=== PATIENT | male | born 1960 | race Caucasian/White ===

== ENCOUNTER 2016-09-20 20:36 | Observation (INO) | payer MEDICARE, OTHER ==
[2016-09-20 21:34] LABS: Hematocrit 47 % (42-52); Mean Corpuscular Volume 88 fL (80-94); Mean Platelet Volume 9 um3 (7.4-10.4); Red Blood Count 5.36 10^6/ul (4.0-5.4); Red Cell Distribution Width 14 % (10.5-15); White Blood Count 17.6 10^3/ul (3.5-10.8)
[2016-09-20 21:42] LABS: Hemoglobin 15.8 g/dl (14.0-18.0)
[2016-09-20 21:43] LABS: Mean Corpuscular HGB Conc 34 g/dl (31-36); Mean Corpuscular Hemoglobin 29 pg (27-31)
[2016-09-20 21:44] LABS: Comments Flag Yes
--- NOTE | 2016-09-20 21:50 | ED ---
Sebas Merrill Adam, scribed for Tavo Bright MD on 09/20/16 at 2058 . Abdominal Pain/Male - HPI Summary HPI Summary: Pt is a 56 year old male presenting with abdominal pain. The pain set on at 18: 00 today and it radiates to the pt's back. He also reports lower chest heaviness , diarrhea, and nausea for the past hour. He has never had these symptoms before. Pt went to the DC today and was told that his triglycerides were high ( around 1999) and that he is to return for a follow-up on 10/09/16. PMHx of DM, HTN, and COPD. Positive tobacco hx. - History of Current Complaint Chief Complaint: EDChestPainROMI Stated Complaint: FEVER/ ABD- CHEST PAIN Time Seen by Provider: 09/20/16 20:51 Hx Obtained From: Patient Onset/Duration: Sudden Onset, Lasting Hours, Still Present Timing: Constant, Lasting Hours Severity Initially: Moderate Severity Currently: Moderate Pain Intensity: 4 Pain Scale Used: 0-10 Numeric Location: Diffuse Radiates: Yes Radiates to: Back Aggravating Factor(s): Nothing Alleviating Factor(s): Nothing Associated Signs And Symptoms: Positive: Chest Pain, Nausea, Diarrhea - Allergies/Home Medications Allergies/Adverse Reactions: Allergies Allergy/AdvReac Type Severity Reaction Status Date / Time Propoxyphene Allergy Unknown Verified 09/20/16 20:43 [From Makayla] Reaction Details Home Medications: Home Medications Cholecalciferol TAB* [Vitamin D TAB*] 1,000 unit PO DAILY 09/21/16 [History Confirmed 09/21/16] PMH/Surg Hx/FS Hx/Imm Hx Endocrine/Hematology History: Reports: Hx Diabetes Denies: Hx Thyroid Disease Cardiovascular History: Reports: Hx Hypertension Denies: Hx Hypercholesterolemia, Hx Pacemaker/ICD, Hx Peripheral Vascular Disease Respiratory History: Reports: Hx Chronic Obstructive Pulmonary Disease (COPD) History: Reports: Hx Renal Disease - STONES Musculoskeletal History: Denies: Hx Arthritis, Hx Rheumatoid Arthritis, Hx Osteoporosis, Hx Scoliosis Sensory History: Denies: Hx Cataracts, Hx Contacts or Glasses, Hx Glaucoma, Hx Hearing Aid Opthamlomology History: Denies: Hx Cataracts, Hx Contacts or Glasses, Hx Glaucoma Neurological History: Denies: Hx Headaches, Hx Seizures, Hx Transient Ischemic Attacks (TIA), Other Neuro Impairments/Disorders Psychiatric History: Denies: Hx Anxiety, Hx Depression, Hx Panic Disorder - Surgical History Surgery Procedure, Year, and Place: LASIK EYE SURGERY 2003 Infectious Disease History: No Infectious Disease History: Denies: Traveled Outside the [place] in Last 30 Days - Family History Known Family History: Positive: Other - Cancer - Social History Occupation: Retired Lives: With Family - Domestic partner female Hx Tobacco Use: Yes Smoking Status (MU): Current Every Day Smoker Review of Systems Positive: Chest Pain Positive: Abdominal Pain, Diarrhea, Nausea All Other Systems Reviewed And Are Negative: Yes Physical Exam Triage Information Reviewed: Yes Vital Signs On Initial Exam: Initial Vitals Temp Pulse Resp BP Pulse Ox 98.3 F 116 16 146/99 93 09/20/16 20:38 09/20/16 20:38 09/20/16 20:38 09/20/16 20:38 09/20/16 20:38 Vital Signs Reviewed: Yes Appearance: Positive: Pain Distress - mod discomfort, Obese Skin: Positive: Warm Head/Face: Positive: Normal Head/Face Inspection Eyes: Positive: AMALIA ENT: Positive: Hearing grossly normal Neck: Positive: Supple Respiratory/Lung Sounds: Positive: Clear to Auscultation, Breath Sounds Present Cardiovascular: Positive: Normal Abdomen Description: Positive: No Organomegaly, Soft, Distended, Other: - mild diffuse upper abd tenderness Bowel Sounds: Positive: Present Musculoskeletal: Positive: Strength/ROM Intact Neurological: Positive: Alert, Oriented to Person Place, Time Psychiatric: Positive: Affect/Mood Appropriate Diagnostics - Vital Signs Vital Signs Temp Pulse Resp BP Pulse Ox 09/20/16 20:38 98.3 F 116 16 146/99 93 - Laboratory Lab Results: Lab Results 09/20/16 Range/Units 21:25 WBC 17.6 H (3.5-10.8) 10^3/ul RBC 5.36 (4.0-5.4) 10^6/ul Hgb 15.8 (14.0-18.0) g/dl Hct 47 (42-52) % MCV 88 (80-94) fL MCH 29 (27-31) pg MCHC 34 (31-36) g/dl RDW 14 (10.5-15) % Plt Count 231 (150-450) 10^3/ul MPV 9 (7.4-10.4) um3 Neut % (Auto) 85.0 H (38-83) % Lymph % (Auto) 7.7 L (25-47) % [place] % (Auto) 6.3 (1-9) % Eos % (Auto) 0.4 (0-6) % Baso % (Auto) 0.6 (0-2) % Absolute Neuts (auto) 15.0 H (1.5-7.7) 10^3/ul Absolute Lymphs (auto) 1.4 (1.0-4.8) 10^3/ul Absolute Monos (auto) 1.1 H (0-0.8) 10^3/ul Absolute Eos (auto) 0.1 (0-0.6) 10^3/ul Absolute Basos (auto) 0.1 (0-0.2) 10^3/ul Absolute Nucleated RBC 0.02 10^3/ul Nucleated RBC % 0.1 Result Diagrams: 09/21/16 04:30 09/20/16 21:56 Lab Statement: Any lab studies that have been ordered have been reviewed, and results considered in the medical decision making process. - Radiology CXR Radiology Interpretation Completed By: Radiologist - IMPRESSION: NO ACTIVE DISEASE. - CT A/P CT Interpretation Completed By: Radiologist - IMPRESSION: ACUTE INTERSTITIAL PANCREATITIS. - EKG 20:46 Cardiac Rate: Tachycardia - 118 BPM EKG Rhythm: Sinus Tachycardia - Additional Comments Diagnostic Additional Comments: Troponin I - 0.00 Abdominal Pain Fem Course/Dx - Diagnoses Provider Diagnoses: Pancreatitis - Provider Notifications Discussed Care Of Patient With: Dr. Mauro at 02:02. Patient will be admitted. Instructed by Provider To: Admit As Inpatient Discharge - Discharge Plan Condition: Guarded Disposition: ADMITTED TO [facility], [place] documentation as recorded by the Sebas alvarez Adam accurately reflects the service I personally performed and the decisions made by me, Tavo Bright MD.
--- NOTE | 2016-09-20 22:00 | RAD ---
INDICATION: Chest pain COMPARISON: Chest x-ray April 27, 2015 TECHNIQUE: PA and lateral dual-energy views were obtained. FINDINGS: Bones/Soft Tissues: There are no acute bony findings. Cardiomediastinal: The cardiomediastinal silhouette is normal. Lungs: There are no infiltrates. Pleura: There are no pleural effusions. Other: None IMPRESSION: NO ACTIVE DISEASE.
[2016-09-20 22:49] LABS: Albumin 4.4 g/dL (3.2-5.2); Calcium 9.6 mg/dL (8.6-10.3); EGFR African American 67.7 (>60); EGFR Non-African American 52.6 (>60); Total Bilirubin 0.8 mg/dL (0.2-1.0); Total Protein 6.4 g/dL (6.4-8.9)
[2016-09-20 23:03] LABS: BUN/Creatinine Ratio 11.4 (8-20)
[2016-09-20] MEDS ORDERED: HYDROmorphone INJ* 1 MG/ML CARPUJECT SYRINGE IV SLOW PU ONE (23:14)
[2016-09-20 23:26] LABS: Urine Bacteria Absent (Absent); Urine Bilirubin Negative (Negative); Urine Glucose 3+(>=500 mg/dL) (Negative); Urine Nitrite Negative (Negative)
[2016-09-20] MEDS ORDERED: Iodixanol* (CONTRAST) 320 MG/ML 100 ML SDV IV ONE (23:35)
[2016-09-21] MEDS ORDERED: LORazepam INJ* 2 MG/ML 1 ML VIAL IV PRN (02:07)
[2016-09-21] MEDS ORDERED: Ondansetron INJ* 2 MG/ML VIAL IV PRN (02:07)
[2016-09-21] MEDS ORDERED: NS 0.9% 1000 ML* 1,000 ML IV SCH (02:15)
--- NOTE | 2016-09-21 02:18 | HP ---
H&P (Free Text) History and Physical: PCP: Khushbu Washington MD Date/Time of Evaluation: 09/21/2016 0210 CC: abdominal pain HPI: Mr Ozuna is a 56YO obese male HX hypertriglyceridemia >2k reporting onset of dull/cramping abdominal pain radiating to his back around 1800 associated with some lower chest heaviness and loose stool, but no SOB, palpitations, F/C, or other issues. He denies black/bloody stool. He has no history of similar. Evaluation is notable for a lipase of >900 & CT abd/pel W showing pancreatitis. PMedHx DM2 COPD HTN GERD hypertriglyceridemia PTSD depression Allergies Propoxyphene [From Darvocet-N] Allergy (Verified 09/20/16 20:43) Unknown Reaction Details Ambulatory Orders Nursing to reconcile. PSurgHx denies SocHx: former smoker, no alcohol or recreational drugs; retired; full code status FamHx: Father passed of leukemia in his late 70s. Mother passed of lung CA in her late 70s. ROS: as above, otherwise reviewed and all were negative Constitutional: NAD, normally developed, obese white male vitals: Vital Signs Temp 36.8 C 09/20/16 20:38 Pulse 111 09/20/16 23:31 Resp 20 09/20/16 23:26 BP 147/90 09/20/16 23:31 Pulse Ox 96 09/20/16 23:31 Intake & Output 09/20/16 09/20/16 09/21/16 11:59 23:59 11:59 Weight 111.584 kg HEENM: atraumatic; sclera/conjunctiva: non-icteric/clear; hearing: clinically intact; oropharynx: clear, mucosa moist Neck: soft tissue: non-tender; thyroid: normal Pulmonary: clear to auscultation bilaterally, good aeration, no accessory muscle use CV: RR/RR, normal S1S2, no carotid bruit, no jugular venous distention, 2+ B DP/ PT, no edema Abdominal: soft, non-distended, diffusely moderately tender worst in the epigastrum, no rebound/guarding/rigidity, hypoactive bowel sounds, no hepatosplenomegaly or masses, no costovertebral angle tenderness Musculoskeletal: general: grossly intact; gait: stable Integumental: normal appearance and texture of exposed skin Psychiatric orientation: AA&O to PPS affect: calm mood: cooperative eye contact: good content: reliable responses: timely insight: good Testing: Lab Results 09/20/16 09/20/16 09/20/16 Range/Units 21:25 21:25 21:56 WBC 17.6 H (3.5-10.8) 10^3/ul RBC 5.36 (4.0-5.4) 10^6/ul Hgb 15.8 (14.0-18.0) g/dl Hct 47 (42-52) % MCV 88 (80-94) fL MCH 29 (27-31) pg MCHC 34 (31-36) g/dl RDW 14 (10.5-15) % Plt Count 231 (150-450) 10^3/ul MPV 9 (7.4-10.4) um3 Neut % (Auto) 85.0 H (38-83) % Lymph % (Auto) 7.7 L (25-47) % [place] % (Auto) 6.3 (1-9) % Eos % (Auto) 0.4 (0-6) % Baso % (Auto) 0.6 (0-2) % Absolute Neuts (auto) 15.0 H (1.5-7.7) 10^3/ul Absolute Lymphs (auto) 1.4 (1.0-4.8) 10^3/ul Absolute Monos (auto) 1.1 H (0-0.8) 10^3/ul Absolute Eos (auto) 0.1 (0-0.6) 10^3/ul Absolute Basos (auto) 0.1 (0-0.2) 10^3/ul Absolute Nucleated RBC 0.02 10^3/ul Nucleated RBC % 0.1 Sodium 125 L (133-145) mmol/L Potassium 5.0 (3.5-5.0) mmol/L Chloride 93 L (101-111) mmol/L Carbon Dioxide 24 (22-32) mmol/L Anion Gap 8 (2-11) mmol/L BUN 16 (6-24) mg/dL Creatinine 1.40 H (0.67-1.17) mg/dL Est GFR ( Amer) 67.7 (>60) Est GFR (Non-Af Amer) 52.6 (>60) BUN/Creatinine Ratio 11.4 (8-20) Glucose 288 H (70-100) mg/dL Calcium 9.6 (8.6-10.3) mg/dL Total Bilirubin 0.80 (0.2-1.0) mg/dL AST 56 H (13-39) U/L ALT 43 (7-52) U/L Alkaline Phosphatase 48 (34-104) U/L Troponin I 0.00 (<0.04) ng/mL Total Protein 6.4 (6.4-8.9) g/dL Albumin 4.4 (3.2-5.2) g/dL Globulin 2.0 (2-4) g/dL Albumin/Globulin Ratio 2.2 (1-3) Lipase 938 H (11.0-82.0) U/L Urine Color Urine Appearance Urine pH (5-9) Ur Specific [place] (1.010-1.030) Urine Protein (Negative) Urine Ketones (Negative) Urine Blood (Negative) Urine Nitrate (Negative) Urine Bilirubin (Negative) Urine Urobilinogen (Negative) Ur Leukocyte Esterase (Negative) Urine WBC (Auto) (Absent) Urine RBC (Auto) (Absent) Ur Squamous Epith Cells (Absent) Urine Bacteria (Absent) Urine Glucose (Negative) 09/20/16 Range/Units 23:10 WBC (3.5-10.8) 10^3/ul RBC (4.0-5.4) 10^6/ul Hgb (14.0-18.0) g/dl Hct (42-52) % MCV (80-94) fL MCH (27-31) pg MCHC (31-36) g/dl RDW (10.5-15) % Plt Count (150-450) 10^3/ul MPV (7.4-10.4) um3 Neut % (Auto) (38-83) % Lymph % (Auto) (25-47) % [place] % (Auto) (1-9) % Eos % (Auto) (0-6) % Baso % (Auto) (0-2) % Absolute Neuts (auto) (1.5-7.7) 10^3/ul Absolute Lymphs (auto) (1.0-4.8) 10^3/ul Absolute Monos (auto) (0-0.8) 10^3/ul Absolute Eos (auto) (0-0.6) 10^3/ul Absolute Basos (auto) (0-0.2) 10^3/ul Absolute Nucleated RBC 10^3/ul Nucleated RBC % Sodium (133-145) mmol/L Potassium (3.5-5.0) mmol/L Chloride (101-111) mmol/L Carbon Dioxide (22-32) mmol/L Anion Gap (2-11) mmol/L BUN (6-24) mg/dL Creatinine (0.67-1.17) mg/dL Est GFR ( Amer) (>60) Est GFR (Non-Af Amer) (>60) BUN/Creatinine Ratio (8-20) Glucose (70-100) mg/dL Calcium (8.6-10.3) mg/dL Total Bilirubin (0.2-1.0) mg/dL AST (13-39) U/L ALT (7-52) U/L Alkaline Phosphatase (34-104) U/L Troponin I (<0.04) ng/mL Total Protein (6.4-8.9) g/dL Albumin (3.2-5.2) g/dL Globulin (2-4) g/dL Albumin/Globulin Ratio (1-3) Lipase (11.0-82.0) U/L Urine Color Yellow Urine Appearance Clear Urine pH 6.0 (5-9) Ur Specific [place] 1.033 H (1.010-1.030) Urine Protein 2+(100 mg/dl) H (Negative) Urine Ketones 2+ H (Negative) Urine Blood Negative (Negative) Urine Nitrate Negative (Negative) Urine Bilirubin Negative (Negative) Urine Urobilinogen Negative (Negative) Ur Leukocyte Esterase Negative (Negative) Urine WBC (Auto) Absent (Absent) Urine RBC (Auto) Trace(0-2/hpf) (Absent) Ur Squamous Epith Cells Present H (Absent) Urine Bacteria Absent (Absent) Urine Glucose 3+(>=500 mg/dl) H (Negative) ECG, personally reviewed: sinus tachycardia rate 118, no ischemia CXR, personally reviewed: IMPRESSION: NO ACTIVE DISEASE. CT abd/pel W, personally reviewed: Impression: Acute interstitial pancreatitis Impression: 56M presenting with acute pancreatitis DIAGNOSIS & PLAN Primary acute pancreatitis : IVFs : monitor labs : NPO : pain control : supplemental oxygen : supportive care : RUQ US to evaluate for gall stones Secondary DM2 : basal/correctional protocol : check A1c HTN : hold anti-hypertensives for now GERD : IV pantoprazole ADD : hold methylphenidate for now depression : hold aripiprazole & mirtazapine for now Admission Rational: inpatient for management of acute pancreatitis inappropriate for outpatient setting DVTp: SCDs & heparin SQ Code Status: full
[2016-09-21] MEDS: HYDROmorphone INJ* 1 MG/ML CARPUJECT SYRINGE IV PRN ×3 (03:38→12:41)
[2016-09-21] MEDS: Pantoprazole IV* 40 MG IV SCH ×2 (03:41→10:09)
[2016-09-21] MEDS ORDERED: Insulin LISPRO* 1 UNITS UNIT SUBCUT SCH (04:00)
[2016-09-21 04:44] LABS: Hematocrit 47 % (42-52); Hemoglobin 16.5 g/dl (14.0-18.0); Mean Corpuscular HGB Conc 35 g/dl (31-36); Mean Corpuscular Hemoglobin 31 pg (27-31); Mean Corpuscular Volume 88 fL (80-94); Mean Platelet Volume 9 um3 (7.4-10.4); Red Cell Distribution Width 14 % (10.5-15); White Blood Count 15.9 10^3/ul (3.5-10.8)
[2016-09-21 05:11] LABS: Anion Gap 6 mmol/L (2-11); Blood Urea Nitrogen 12 mg/dL (6-24); CO2 Carbon Dioxide 24 mmol/L (22-32); Calcium 9.2 mg/dL (8.6-10.3); Chloride 91 mmol/L (101-111); EGFR African American 109.8 (>60); EGFR Non-African American 85.4 (>60); Glucose 291 mg/dL (70-100); Lipase 463 U/L (11.0-82.0); Sodium 121 mmol/L (133-145)
[2016-09-21] MEDS: Insulin LISPRO* 1 UNITS UNIT SUBCUT SCH ×5 (05:22→21:55)
[2016-09-21] MEDS: NS 0.9% 1000 ML* 1,000 ML IV SCH ×3 (07:40→23:01)
--- NOTE | 2016-09-21 08:16 | RAD ---
INDICATION: Fever. Abdominal pain. Elevated lipase. LEFT side pain. History of tobacco use. History of urolithiasis. Diabetic. COMPARISON: July 02, 2015 abdominal ultrasound and April 30, [address] TECHNIQUE: Multidetector CT images were obtained from the lung bases to the ischial tuberosities with 140 mL Visipaque 320 IV and oral contrast. Multiplanar reformation. REPORT: Unremarkable visualized inferior thorax. 23 cm cephalocaudal liver is decreased in density consistent with hepatic steatosis. Negative for focal hepatic lesions or biliary dilatation. No CT abnormality of the gallbladder. Normal morphology pancreas with normal enhancement pattern is without evidence for a focal lesion or duct dilatation. There is moderate peripancreatic inflammatory change primarily extending anteriorly at the lesser sac with trace nonloculated fluid. Negative for CT abnormality of the upper GI, small bowel, or medial cephalad extending appendix. Mild diverticulosis of the colon without findings of diverticulitis. Aside from trace fluid in the lesser sac there is no free intraperitoneal fluid. Negative for free air. Bilateral fat-containing direct inguinal hernias without inflammatory change. 1.6 x 1.2 cm enhancing RIGHT adrenal nodule is new compared with the 2015 exam. Unremarkable LEFT adrenal gland. Low burden of small renal cortical cysts. Negative for suspicious renal lesions. Negative for hydronephrosis. Unremarkable ureters and partially distended urinary bladder. Unremarkable visualized male urogenital structures. 1.1 cm in short axis hepatic artery lymph node without change. Upper normal size portal caval node without change. Mild atherosclerotic calcification of normal diameter abdominal aorta and iliac arteries. The portal vein, superior mesenteric vein, and splenic vein are patent. Bilateral L5 spondylolysis without significant associated anterolisthesis. No suspicious focal osseous lesions evident. IMPRESSION: 1. The constellation of findings is consistent with acute pancreatitis. No nonenhancing regions of the pancreas to indicate pancreatic necrosis. Negative for pancreatic duct or biliary dilatation. Negative for loculated peripancreatic fluid collections. Consider RIGHT upper quadrant ultrasound to assess for cholelithiasis. July 02, 2015 RIGHT upper quadrant ultrasound was negative for cholelithiasis. 2. Hepatomegaly and hepatic steatosis. 3. Negative for obstructive uropathy. 4. 1.6 cm RIGHT adrenal nodule is new compared with the 2015 CT. This lesion is nonspecific based on the appearance on the current contrast-enhanced CT. Consider follow-up noncontrast CT or adrenal mass protocol MRI for further characterization following treatment for the acute clinical issue of pancreatitis..
--- NOTE | 2016-09-21 09:07 | RAD ---
HISTORY: Acute pancreatitis COMPARISONS: None TECHNIQUE: Multiple transverse and longitudinal ultrasound images were obtained of the right upper quadrant of the abdomen using grayscale and color Doppler imaging. FINDINGS: LIVER: There is wedging is enlarged measuring 21 cm. The liver is diffusely echogenic and coarse in echotexture with decreased acoustic through transmission. There is normal hepatopedal flow of the portal vein on Doppler imaging. BILIARY TREE: There is no intrahepatic or extrahepatic biliary dilatation. The common duct measures 0.3 cm. GALLBLADDER: The gallbladder is well-visualized. There is no cholelithiasis, gallbladder wall thickening, pericholecystic fluid, or sonographic Bernardo sign. PANCREAS: The head of the pancreas is heterogeneous. The tail of the pancreas is not well visualized secondary to overlying bowel gas. RIGHT KIDNEY: The right kidney is normal in shape, size, contour, and echogenicity. There is no hydronephrosis or nephrolithiasis. The right kidney measures 12.2 x 6.5 x 7 cm. AORTA AND IVC: The aorta and IVC are unremarkable. FLUID: There are no pleural effusions. There is no free fluid within the hepatorenal recess. OTHER FINDINGS: None. IMPRESSION: HEPATOMEGALY WITH FATTY INFILTRATION OF THE LIVER
--- NOTE | 2016-09-21 14:28 | PN ---
Subjective Date of Service: 09/21/16 Interval History: Patient seen and examined at bedside. Patient states that his abdominal pain is improving. Denies fever, chills, shortness of breath, chest discomfort, N/V/D. Family History: Unchanged from Admission Social History: Unchanged from Admission Past Medical History: Unchanged from Admission Objective Active Medications: Hydromorphone HCl (Dilaudid Iv*) 1 mg IV Q2H PRN Reason: PAIN Sodium Chloride (Ns 0.9% 1000 Ml*) 1,000 mls @ 125 mls/hr IV PER RATE [facility] Insulin Glargine (Lantus(*)) 27 units SUBCUT 2100 YVETTE Insulin Human Lispro (Humalog*) 0 units SUBCUT Q4H [facility] Reason: Protocol Lorazepam (Ativan Inj*) 1 mg IV BEDTIME PRN Reason: SLEEP Ondansetron HCl (Zofran Inj*) 4 mg IV Q6H PRN Reason: NAUSEA Pantoprazole Sodium (Protonix Iv*) 40 mg IV DAILY [facility] Vital Signs 09/21/16 09/21/16 09/21/16 02:29 03:33 03:38 Temperature 99.2 F 98.2 F Pulse Rate 109 Respiratory 20 20 Rate Blood Pressure 154/87 (mmHg) O2 Sat by Pulse 92 Oximetry 09/21/16 09/21/16 09/21/16 03:51 04:38 07:19 Temperature 98.4 F Pulse Rate 106 Respiratory 20 18 16 Rate Blood Pressure 125/67 (mmHg) O2 Sat by Pulse 90 Oximetry Oxygen Devices in Use Now: None Appearance: NAD, laying in bed Eyes: No Scleral Icterus, PERRLA Ears/Nose/Mouth/Throat: NL Teeth, Lips, Gums, Mucous Membranes Moist Neck: NL Appearance and Movements; NL JVP, Trachea Midline Respiratory: Symmetrical Chest Expansion and Respiratory Effort, Clear to Auscultation Cardiovascular: NL Sounds; No Murmurs; No JVD, RRR Abdominal: - - Abdomen soft, large, non tender. Bowel sounds present Extremities: No Edema Skin: No Rash or Ulcers Neurological: Alert and Oriented x 3, NL Muscle Strength and Tone Lines/Tubes/Other Access: Clean, Dry and Intact Peripheral IV - site benign Nutrition: Taking PO's Result Diagrams: 09/21/16 04:30 09/21/16 06:01 Additional Lab and Data: Assess/Plan/Problems-Billing Assessment: - Patient Problems (1) Pancreatitis Code(s): K85.90 - ACUTE PANCREATITIS WITHOUT NECROSIS OR INFECTION, UNSP SNOMED Code(s): 24764751 Comment: - ABD pain improving - GB US - no gallstones - Continue IVF and pain medication - Will check fating lipids in the morning (2) Hyponatremia Code(s): E87.1 - HYPO-OSMOLALITY AND HYPONATREMIA SNOMED Code(s): 42290341 Comment: - Pt was declining IVFs - Will continue NS overnight and recheck labs in the morning (3) Diabetes Code(s): E11.9 - TYPE 2 DIABETES MELLITUS WITHOUT COMPLICATIONS SNOMED Code(s) : 96317993 Comment: - Glucose 170-250's - Continue Lantus and Lispro SS - Continue to hold metformin (4) HTN (hypertension) Code(s): I10 - ESSENTIAL (PRIMARY) HYPERTENSION SNOMED Code(s): 22152469 Comment: - SBP 100-150's - Continue to hold antihypertensive medications (5) GERD (gastroesophageal reflux disease) Code(s): K21.9 - GASTRO-ESOPHAGEAL REFLUX DISEASE WITHOUT ESOPHAGITIS SNOMED Code(s): 059493492 Comment: - Continue protonix (6) ADD (attention deficit disorder) Code(s): F98.8 - OTH BEHAV/EMOTN DISORD W ONSET USLY OCCUR IN CHLDHD AND ADOL SNOMED Code(s): 679440380 Comment: - Resume methylphenidate when taking PO (7) Depression Code(s): F32.9 - MAJOR DEPRESSIVE DISORDER, SINGLE EPISODE, UNSPECIFIED SNOMED Code(s): 93319079 Comment: - Resume aripiprazole and mirtazapine when taking PO (8) DVT prophylaxis Current Visit: Yes Status: Acute Code(s): KLV9638 - SNOMED Code(s): 018213662 Comment: - Continue SCDs and encourage ambulation (9) Full code status Code(s): Z78.9 - OTHER SPECIFIED HEALTH STATUS SNOMED Code(s): 449520011 Status and Disposition: Inpatient. Discharge to home when medically stable.
[2016-09-21] MEDS ORDERED: Insulin GLARGINE(*) 1 UNITS UNIT SUBCUT SCH (21:00)
[2016-09-22] MEDS: Insulin LISPRO* 1 UNITS UNIT SUBCUT SCH ×4 (00:08→12:46)
[2016-09-22] MEDS ORDERED: Zolpidem TAB* 10 MG PO SCH (01:00)
[2016-09-22 06:25] LABS: Hematocrit 42 % (42-52); Hemoglobin 13.9 g/dl (14.0-18.0); Mean Corpuscular HGB Conc 33 g/dl (31-36); Mean Corpuscular Hemoglobin 30 pg (27-31); Mean Corpuscular Volume 89 fL (80-94); Mean Platelet Volume 9 um3 (7.4-10.4); Red Cell Distribution Width 14 % (10.5-15); White Blood Count 11.8 10^3/ul (3.5-10.8)
[2016-09-22 07:01] LABS: BUN/Creatinine Ratio 14.1 (8-20); Calcium 8.7 mg/dL (8.6-10.3); EGFR African American 132.9 (>60); EGFR Non-African American 103.3 (>60); HDL Cholesterol 15.6 mg/dL; Potassium 3.5 mmol/L (3.5-5.0)
[2016-09-22 07:49] VITALS: BP 116/61
[2016-09-22] MEDS: Pantoprazole IV* 40 MG IV SCH (08:54)
--- NOTE | 2016-09-22 09:58 | PN ---
Subjective Date of Service: 09/22/16 Interval History: Patient seen and examined at bedside. Denies fever, chills, chest discomfort, shortness of breath, abdominal pain, N/V/D. Pt reports he is tolerating clear liquids well. Per Pt's he had labs drawn at the [facility] on September 13 showing Triglycerides greater than 2,400, AST 83 and HgA1C 10.6 Family History: Unchanged from Admission Social History: Unchanged from Admission Past Medical History: Unchanged from Admission Objective Active Medications: Hydromorphone HCl (Dilaudid Iv*) 1 mg IV Q2H PRN Reason: PAIN Sodium Chloride (Ns 0.9% 1000 Ml*) 1,000 mls @ 125 mls/hr IV PER RATE YVETTE Insulin Glargine (Lantus(*)) 27 units SUBCUT 2100 YVETTE Stop: 09/22/16 20:00 Insulin Human Lispro (Humalog*) 0 units SUBCUT Q4H YVETTE Reason: Protocol Lorazepam (Ativan Inj*) 1 mg IV BEDTIME PRN Reason: SLEEP Ondansetron HCl (Zofran Inj*) 4 mg IV Q6H PRN Reason: NAUSEA Pantoprazole Sodium (Protonix Iv*) 40 mg IV DAILY YVETTE Zolpidem Tartrate (Ambien Tab*) 10 mg PO 2100 YVETTE Reason: Protocol Vital Signs 09/21/16 09/21/16 09/21/16 12:41 13:41 15:31 Temperature 98.4 F Pulse Rate 100 Respiratory 18 18 20 Rate Blood Pressure 105/68 (mmHg) O2 Sat by Pulse 91 Oximetry 09/21/16 09/21/16 09/21/16 16:59 19:30 20:00 Temperature 98.3 F Pulse Rate 105 Respiratory 20 20 Rate Blood Pressure 144/79 (mmHg) O2 Sat by Pulse 90 94 Oximetry 09/21/16 09/22/16 09/22/16 23:06 05:19 07:39 Temperature 98.6 F 98.6 F Pulse Rate 106 102 Respiratory 16 22 Rate Blood Pressure 132/70 116/61 (mmHg) O2 Sat by Pulse 93 92 93 Oximetry Oxygen Devices in Use Now: None Appearance: NAD, sitting up on the side of the bed Eyes: No Scleral Icterus, PERRLA Ears/Nose/Mouth/Throat: NL Teeth, Lips, Gums, Mucous Membranes Moist Neck: NL Appearance and Movements; NL JVP, Trachea Midline Respiratory: Symmetrical Chest Expansion and Respiratory Effort, Clear to Auscultation Cardiovascular: NL Sounds; No Murmurs; No JVD, RRR Abdominal: NL Sounds; No Tenderness; No Distention Extremities: No Edema Skin: No Rash or Ulcers Neurological: Alert and Oriented x 3, NL Muscle Strength and Tone Lines/Tubes/Other Access: Clean, Dry and Intact Peripheral IV - site benign Nutrition: Taking PO's Result Diagrams: 09/22/16 05:51 09/22/16 05:51 Additional Lab and Data: Assess/Plan/Problems-Billing Assessment: - Patient Problems (1) Pancreatitis Code(s): K85.90 - ACUTE PANCREATITIS WITHOUT NECROSIS OR INFECTION, UNSP SNOMED Code(s): 10530644 Comment: - ABD pain resolved - Pt reports Triglycerides at the [facility] last week were > 2,400 but are 300 this AM - US - no gallstones - Continue IVF and pain medication - Will advance diet - Suspect this is related to elevated lipids (2) Hyponatremia Code(s): E87.1 - HYPO-OSMOLALITY AND HYPONATREMIA SNOMED Code(s): 11828534 Comment: - Improved with NS (3) Diabetes Code(s): E11.9 - TYPE 2 DIABETES MELLITUS WITHOUT COMPLICATIONS SNOMED Code(s) : 77285965 Comment: - Glucose 160-200's - Continue Lantus and Lispro SS - Continue to hold metformin, will resume at discharge - Last known HgA1C 10.6 earlier this month - Would benefit from a consult at [facility] (4) HTN (hypertension) Code(s): I10 - ESSENTIAL (PRIMARY) HYPERTENSION SNOMED Code(s): 61725584 Comment: - SBP 100-140's - Continue to hold antihypertensive medications (5) GERD (gastroesophageal reflux disease) Code(s): K21.9 - GASTRO-ESOPHAGEAL REFLUX DISEASE WITHOUT ESOPHAGITIS SNOMED Code(s): 625464269 Comment: - Continue protonix (6) ADD (attention deficit disorder) Code(s): F98.8 - OTH BEHAV/EMOTN DISORD W ONSET USLY OCCUR IN CHLDHD AND ADOL SNOMED Code(s): 039234309 Comment: - Resume methylphenidate (7) Depression Code(s): F32.9 - MAJOR DEPRESSIVE DISORDER, SINGLE EPISODE, UNSPECIFIED SNOMED Code(s): 75691365 Comment: - Resume aripiprazole and mirtazapine (8) DVT prophylaxis Current Visit: Yes Status: Acute Code(s): RGO6379 - SNOMED Code(s): 574320388 Comment: - Continue SCDs and encourage ambulation (9) Full code status Code(s): Z78.9 - OTHER SPECIFIED HEALTH STATUS SNOMED Code(s): 296823370 Status and Disposition: Inpatient. Discharge to home when medically stable, possibly later today.
[2016-09-22 10:25] LABS: Albumin 3.2 g/dL (3.2-5.2); Globulin 3.1 g/dL (2-4); Total Bilirubin 1.1 mg/dL (0.2-1.0); Total Protein 6.3 g/dL (6.4-8.9)
--- NOTE | 2016-09-23 14:19 | DS ---
DISCHARGE SUMMARY: ADDENDUM: It was found on the patient's CT scan, a 1.6 cm right adrenal nodule that was new when compared to a CT from 2015. It is recommended that a followup noncontrast CT or adrenal mass protocol MRI be completed after the patient's acute clinical issue of pancreatitis has been resolved. SACHA OLVERA, VALENCIA [id number]/[facility] #: [id number] MTDAlfredo
--- NOTE | 2016-09-23 17:43 | DS ---
ADDENDUM NOW INCLUDED ON THIS REPORT DISCHARGE SUMMARY: DATE OF ADMISSION: 09/21/16 DATE OF DISCHARGE: 09/22/16 ATTENDING PHYSICIAN: Dr. Tegan Griffin* (dictated by Viola Baker NP). PRIMARY CARE PROVIDER: Dr. Rufina Epperson. PRIMARY DIAGNOSES: 1. Acute pancreatitis. 2. Diabetes mellitus. SECONDARY DIAGNOSES: 1. Chronic obstructive pulmonary disease. 2. Hypertension. 3. Gastroesophageal reflux disease. 4. Posttraumatic stress disorder. 5. Depression. 6. Hypertriglyceridemia. 7. Fatty liver. STUDIES WHILE IN THE HOSPITAL: 1. Chest x-ray on 09/20/16. Radiologist's Impression: No active disease. 2. Abdomen and pelvis CT scan on 09/20/16. Radiologist's Impression: Reconciliation of findings is consistent with acute pancreatitis. No nonenhancing regions of the pancreas to indicate pancreatic necrosis. Negative for pancreatic duct or biliary dilation. Negative for loculated peripancreatic fluid collections. Consider right upper quadrant ultrasound to assess for cholelithiasis. July 02, 2015 right upper quadrant ultrasound was negative for cholelithiasis. Hepatomegaly and hepatic steatosis appeared negative for obstructive uropathy. A 1.6 cm right adrenal nodule is compared with the 2015 CT. This lesion is nonspecific based on the appearance of the current contrast enhanced CT. Consider followup noncontrast CT or adrenal mass protocol MRI for further characterization following the acute clinical issue of pancreatitis. 3. Abdominal ultrasound on 09/21/16. Radiologist's Impression: Hepatomegaly with fatty infiltration of the liver. DISCHARGE MEDICATIONS: [place] Medications: 1. Tricor 48 mg oral daily. Continued home medications: 1. Omeprazole 20 mg oral daily. 2. Mirtazapine 45 mg oral daily. 3. Concerta 54 mg oral daily. 4. Abilify 20 mg oral daily. 5. Ambien CR 12.5 mg oral daily. 6. Metformin 1000 mg oral twice daily. 7. Sildenafil 100 mg oral daily as needed for erectile dysfunction. 8. Lisinopril/hydrochlorothiazide 10.5, two tablets oral daily. HISTORY OF PRESENT ILLNESS/HOSPITAL COURSE: Mr. Ozuna is a 56-year-old obese male with past medical history significant for hypertriglyceridemia, diabetes mellitus, and hypertension, who presented to the emergency room with sudden onset of a dull cramping abdominal pain radiating to his back, with associated lower chest heaviness and loose stools. The patient denied any shortness of breath, palpitations, fevers, chills or other issues. Based on the patient's symptoms, the patient presented to the emergency room for further evaluation of his symptoms. While in the emergency room, the patient had labs that were significant for lipase greater than 900. He had a CT of his abdomen and pelvis consistent with acute pancreatitis. The patient's reported that he had recently had hypertriglyceridemia with triglycerides greater than 2000 at the beginning of September. The patient's also reported that his last hemoglobin A1c at the same time was 10.6. They report that in the past he has been worked up for abnormal liver function tests, feeling that he possibly had cirrhosis, but he was found to have a fatty liver. Hospitalists were asked to evaluate the patient for admission. While in the hospital, the patient was placed on bowel rest, received IV hydration. His abdominal pain gradually resolved. He had fasting lipids checked on the morning of September 22. He was found to have triglycerides of 300. His lipase was trending down too and was 240. The patient was initially hyponatremic and his sodium trended up to 131. The patient's glucoses had run in the 160s to 250s during his stay. The patient was noted to have a slightly elevated total bilirubin of 1.10. The patient was advanced on his diet, was able to tolerate a low-fat diet. He had a nutritional consult to discuss proper low-fat diet. The patient has remained afebrile during his stay. He has been noted to be slightly tachycardic which has improved during his stay. Initially, his heart rate was in the one-teens and it improved down to low 100s during his stay. The patient initially presented with an acute kidney injury with an elevated creatinine and that has resolved after IV hydration during his stay. Mr. Ozuna is stable for discharge to home today. Vital signs are as follows : Temperature 98.6, heart rate 102, respiratory rate 20, O2 sat 93% on room air , blood pressure 116/61. DISCHARGE PLAN: Mr. Ozuna will be discharged to home today. Activity as tolerated. He has been asked to eat a low-fat, consistent carbohydrate diet. Again, he has received education on a low-fat diet from Nutrition. The patient is interested in further diabetes education in addition to assistance with managing his diabetes and high blood pressure and other medical condition. The patient received a referral to [facility] and they will call him to set up an appointment. Additionally, they can assist the patient with ways of stopping to smoke. The patient has an appointment with his primary care provider, Dr. Epperson on September 27, at 1 p.m. The patient has been started on low-dose Tri-Cor to assist with his high triglycerides. It is suspected that his pancreatitis is as a result of elevated lipids. The patient has been asked to return to the emergency room for shortness of breath or chest pain. This is a summarized report of a complex medical history and hospital stay. For further details please see the entire medical record. TIME SPENT: Time for this discharge was 50 minutes; 25 minutes was spent face- to- face with the patient and discussing discharge plans and instructions. CONDITION ON DISCHARGE: Stable. Reviewed by LUZ MARINA LICONA 09/27/16 1406 ADDENDUM: It was found on the patient's CT scan, a 1.6 cm right adrenal nodule that was new when compared to a CT from 2015. It is recommended that a followup noncontrast CT or adrenal mass protocol MRI be completed after the patient's acute clinical issue of pancreatitis has been resolved. Reviewed by LUZ MARINA LICONA 09/27/16 1406 CC: PAO Correa; Dr. Rufina Epperson.* [id number]/[facility] #: [id number]/[facility] #: [id number] SUM[place]
== END 2016-09-22 15:30 | disposition home or self-care (01) ==
LOC: ED 20:36 → INTOOBSV 09-21 02:17 → MED 09-21 02:17
PROVIDERS: ADMIT Hospitalist; ATTEND Internal Medicine
DX: K85.90 Acute pancreatitis without necrosis or infection, unspecified (principal); E11.9 Type 2 diabetes mellitus without complications; Z79.84 Long term (current) use of oral hypoglycemic drugs; J44.9 Chronic obstructive pulmonary disease, unspecified; I10 Essential (primary) hypertension; E87.1 Hypo-osmolality and hyponatremia; K21.9 Gastro-esophageal reflux disease without esophagitis; F43.10 Post-traumatic stress disorder, unspecified; F32.9 Major depressive disorder, single episode, unspecified; E78.1 Pure hyperglyceridemia; R16.0 Hepatomegaly, not elsewhere classified; K76.0 Fatty (change of) liver, not elsewhere classified; I44.4 Left anterior fascicular block; R00.0 Tachycardia, unspecified; Z79.899 Other long term (current) drug therapy; F98.8 Other specified behavioral and emotional disorders with onset usually occurring in childhood and adolescence
CPT/HCPCS: 36415; 71020; 74177; 76705; 80048; 80053; 80061; 81003; 81015; 83690; 84484; 85025; 93005; 94760; 96374; 96375; 96376; 99284; 99406; A9270-GY; G0378; J1170; Q9967

== ENCOUNTER 2017-06-18 14:05 | Emergency (ER) | payer MEDICARE, OTHER ==
[2017-06-18 15:17] LABS: Hematocrit 47 % (42-52); Hemoglobin 19.2 g/dl (14.0-18.0); Mean Corpuscular HGB Conc 41 g/dl (31-36); Mean Corpuscular Hemoglobin 36 pg (27-31); Mean Corpuscular Volume 89 fL (80-94); Red Blood Count 5.33 10^6/ul (4.0-5.4); Red Cell Distribution Width 14 % (10.5-15); White Blood Count 11.6 10^3/ul (3.5-10.8)
[2017-06-18 15:22] LABS: Comments Flag Yes
[2017-06-18 15:23] LABS: Add Diff/Slide Review? Slide Review Added
[2017-06-18 15:51] LABS: Mean Platelet Volume 9 um3 (7.4-10.4)
[2017-06-18] MEDS ORDERED: Acetaminophen TAB* 325 MG PO ONE (16:35)
[2017-06-18] MEDS ORDERED: NS 0.9% 1000 ML* 2,000 ML IV ONE (16:37)
--- NOTE | 2017-06-18 17:13 | RAD ---
INDICATION: Cough COMPARISON: 2016 TECHNIQUE: An AP portable view obtained at 1643 hours is submitted. FINDINGS: Bones/Soft Tissues: There are no acute bony findings. Cardiomediastinal: The cardiomediastinal silhouette is normal. Lungs: There are no infiltrates. Pleura: There are no pleural effusions. Other: None IMPRESSION: NO ACTIVE DISEASE.
[2017-06-18 19:02] LABS: ALT 59 U/L (7-52); Albumin 4.6 g/dL (3.2-5.2); Alkaline Phosphatase 60 U/L (34-104); C Reactive Protein 31.55 mg/L (< 5.00); Calcium 9.4 mg/dL (8.6-10.3); EGFR African American 49.4 (>60); EGFR Non-African American 38.4 (>60); Globulin 2.7 g/dL (2-4); Glucose 339 mg/dL (70-100); Total Protein 7.3 g/dL (6.4-8.9)
[2017-06-18] MEDS ORDERED: Insulin REGULAR(*) 1 UNITS UNIT IV PUSH ONE (19:09)
[2017-06-18 19:19] LABS: Urine Bacteria Absent (Absent); Urine Bilirubin Negative (Negative); Urine Glucose 3+(>=500 mg/dL) (Negative); Urine Nitrite Negative (Negative)
[2017-06-18 20:56] VITALS: BP 117/88
--- NOTE | 2017-06-23 21:08 | ED ---
Cara Merrill Thomas, scribed for Deyvi Pond MD on 06/18/17 at 1702 . Complex/Multi-Sys Presentation - HPI Summary HPI Summary: The patient is a 56 y/o male referred to the ED from his PMD after his blood glucose was 400 and his A1c was 10. The patient has been diagnosed with thrush and he has been on Diflucan for the last 6 days. Patient additionally complains of cough and sore throat. He has been having a hoarse voice for the last three weeks. He reports feeling ill for the last two months. Patient denies SOB, fever , and pain. He takes metformin and glipizide. Rapid Strep performed earlier today at the patients PMDs office was negative. - History Of Current Complaint Chief Complaint: EDGeneral Time Seen by Provider: 06/18/17 16:14 Hx Obtained From: Patient Onset/Duration: Still Present Timing: Constant Severity Initially: Moderate Location: Negative Aggravating Factor(s): None Alleviating Factor(s): None Associated Signs And Symptoms: Positive: Other - Cough, sore throat, generalized illness; NEGATIVE: SOB, fever, pain - Allergies/Home Medications Allergies/Adverse Reactions: Allergies Allergy/AdvReac Type Severity Reaction Status Date / Time Propoxyphene Allergy Unknown Verified 05/21/17 20:27 [From Makayla] Reaction Details PMH/Surg Hx/FS Hx/Imm Hx Previously Healthy: No Endocrine/Hematology History: Reports: Hx Diabetes Denies: Hx Thyroid Disease Cardiovascular History: Reports: Hx Hypercholesterolemia, Hx Hypertension Denies: Hx Pacemaker/ICD, Hx Peripheral Vascular Disease Respiratory History: Reports: Hx Chronic Obstructive Pulmonary Disease (COPD), Hx Sleep Apnea Denies: Hx Seasonal Allergies GI History: Reports: Hx Irritable Bowel History: Reports: Hx Renal Disease - STONES Musculoskeletal History: Denies: Hx Arthritis, Hx Rheumatoid Arthritis, Hx Osteoporosis, Hx Scoliosis Sensory History: Reports: Hx Hearing Problem - Some hearing loss Denies: Hx Cataracts, Hx Contacts or Glasses, Hx Glaucoma, Hx Hearing Aid Opthamlomology History: Denies: Hx Cataracts, Hx Contacts or Glasses, Hx Glaucoma Neurological History: Reports: Hx Migraine Denies: Hx Headaches, Hx Seizures, Hx Transient Ischemic Attacks (TIA), Other Neuro Impairments/Disorders Psychiatric History: Reports: Hx Eating Disorder, Hx Post Traumatic Stress Disorder, Other Psychiatric Issues/Disorders - ADD Denies: Hx Anxiety, Hx Depression, Hx Panic Disorder - Cancer History Cancer Type, Location and Year: ptsd,tbi,high cholesterol - Surgical History Surgery Procedure, Year, and Place: LASIK EYE SURGERY 2003 Infectious Disease History: No Infectious Disease History: Denies: Hx Clostridium Difficile, Hx Hepatitis, Hx Human Immunodeficiency Virus (HIV), Hx of Known/Suspected MRSA, Hx Shingles, Hx Tuberculosis, Hx Known/ Suspected VRE, Hx Known/Suspected VRSA, History Other Infectious Disease, Traveled Outside the [place] in Last 30 Days - Family History Known Family History: Positive: Other - Cancer - Social History Lives: With Family Alcohol Use: None Substance Use Type: Reports: None Hx Tobacco Use: Yes Smoking Status (MU): Heavy Every Day Tobacco Smoker Review of Systems Positive: Other - Generalized illness. Negative: Fever Positive: Sore Throat, Other - Hoarse voice Positive: Cough. Negative: Shortness Of Breath Negative: Other - pain All Other Systems Reviewed And Are Negative: Yes Physical Exam - Summary Physical Exam Summary: VITAL SIGNS: Reviewed. He is tachycardic. GENERAL: Patient is a well-developed and nourished male who is lying comfortable in the stretcher. Patient is not in any acute respiratory distress. HEAD AND FACE: No signs of trauma. No ecchymosis, hematomas or skull depressions. No sinus tenderness. EYES: PERRLA, EOMI x 2, No injected conjunctiva, no nystagmus. EARS: Hearing grossly intact. Ear canals and tympanic membranes are within normal limits. MOUTH: Oropharynx within normal limits. There is no thrush noted. He has a beefy tongue. Hoarse voice. NECK: Supple, trachea is midline, no adenopathy, no JVD, no carotid bruit, no c- spine tenderness, neck with full ROM. CHEST: Symmetric, no tenderness at palpation LUNGS: Decreased breath sounds bilaterally. CVS: Tachycardia, regular rhythm, S1 and S2 present, no murmurs or gallops appreciated. ABDOMEN: Soft, non-tender. No signs of distention. No rebound no guarding, and no masses palpated. Bowel sounds are normal. EXTREMITIES: FROM in all major joints, no edema, no cyanosis or clubbing. NEURO: Alert and oriented x 3. No acute neurological deficits. Speech is normal and follows commands. SKIN: Dry and warm Triage Information Reviewed: Yes Vital Signs On Initial Exam: Initial Vitals Temp Pulse Resp BP Pulse Ox 97.2 F 115 16 142/80 93 06/18/17 14:11 06/18/17 14:11 06/18/17 14:11 06/18/17 14:11 06/18/17 14:11 Vital Signs Reviewed: Yes - Huy Coma Scale Coma Scale Total: 15 Diagnostics - Vital Signs Vital Signs Temp Pulse Resp BP Pulse Ox 06/18/17 16:00 111 11 100/68 95 06/18/17 15:58 109 94 06/18/17 15:57 108/63 06/18/17 14:11 97.2 F 115 16 142/80 93 - Laboratory Lab Results: Lab Results 06/18/17 06/18/17 Range/Units 14:59 14:59 WBC 11.6 H (3.5-10.8) 10^3/ul RBC 5.33 (4.0-5.4) 10^6/ul Hgb 19.2 H (14.0-18.0) g/dl Hct 47 (42-52) % MCV 89 (80-94) fL MCH 36 H (27-31) pg MCHC 41 H (31-36) g/dl RDW 14 (10.5-15) % Plt Count 299 (150-450) 10^3/ul MPV 9 (7.4-10.4) um3 Neut % (Auto) 68.8 (38-83) % Lymph % (Auto) 22.5 L (25-47) % [place] % (Auto) 6.4 (1-9) % Eos % (Auto) 1.0 (0-6) % Baso % (Auto) 1.3 (0-2) % Absolute Neuts (auto) 7.9 H (1.5-7.7) 10^3/ul Absolute Lymphs (auto) 2.6 (1.0-4.8) 10^3/ul Absolute Monos (auto) 0.7 (0-0.8) 10^3/ul Absolute Eos (auto) 0.1 (0-0.6) 10^3/ul Absolute Basos (auto) 0.1 (0-0.2) 10^3/ul Absolute Nucleated RBC 0.04 10^3/ul Nucleated RBC % 0.4 Lactic Acid 1.1 (0.5-2.0) mmol/L Result Diagrams: 06/18/17 14:59 06/18/17 16:50 Lab Statement: Any lab studies that have been ordered have been reviewed, and results considered in the medical decision making process. - Radiology CXR Xray Interpretation: No Acute Changes - No active disease. ED physician has reviewed this report and agrees. Radiology Interpretation Completed By: Radiologist - EKG 16:53 Cardiac Rate: Tachycardia EKG Rhythm: Sinus Tachycardia - at 108 BPM EKG Interpretation: Normal axis. Normal internval. Incomplete RBBB. J-point elevation. Re-Evaluation - Re-Evaluation First Eval Re-Evaluation Time: 20:46 Change: Improved Comment: He is feeling better. Complex Multi-Symp Course/Dx Course Of Treatment: The patient has a history of high triglycerides. We did draw the blood twice, and the lab stated that the samples were too lipemic in order to produce results. Assessment/Plan: There is no thrush of the mouth noted. In the ED course the patient was given IV fluids and acetaminophen. Bloodwork was obtained. EKG shows sinus tachycardia with normal axis, normal interval, incomplete RBBB, and J-point elevation. CXR shows no active disease. The patient has a history of high triglycerides. We did draw the blood twice, and the lab stated that the samples were too lipemic in order to produce results. I did have a lengthy discussion with the patient regarding his 3 weeks of hoarseness of voice. Given that he is a long-time smoker, he is at risk of vocal cord and laryngeal cancer. I urged him to follow up with ENT, PMD, and his hunting guide. He understands the importance of this follow up. - Diagnoses Provider Diagnoses: Hyperglycemia, Hoarseness of voice, Laryngitis Discharge - Discharge Plan Condition: Stable Disposition: HOME Patient Education Materials: Laryngitis (ED), Diabetic Hyperglycemia (ED) Referrals: Rufina Epperson MD [Primary Care Provider] - 3 Days Jeremy Jackson MD [Medical Doctor] - 3 Days Additional Instructions: IT IS VERY IMPORTANT THAT YOU FOLLOW UP WITH DR. JACKSON, EAR/NOSE/THROAT DOCTOR. Also, follow up with your primary medical doctor. Follow up with your hunting guide. The documentation as recorded by the Cara alvarez Thomas accurately reflects the service I personally performed and the decisions made by me, Deyvi Pond MD.
== END 2017-06-18 20:57 | disposition home or self-care (01) ==
LOC: ED 14:05
DX: E11.65 Type 2 diabetes mellitus with hyperglycemia (principal); R49.0 Dysphonia; J04.0 Acute laryngitis; J02.9 Acute pharyngitis, unspecified; F17.210 Nicotine dependence, cigarettes, uncomplicated; R05 Cough
CPT/HCPCS: 36415; 71010; 80053; 81003; 81015; 83605; 85025; 86140; 87040; 87502; 93005; 96360; 99283; A9270-GY

== ENCOUNTER 2017-06-29 12:18 | Inpatient (IN) | payer MEDICARE, OTHER ==
[2017-06-29] MEDS ORDERED: Morphine INJ* 4 MG/ML 1 ML CARPUJECT IV ONE (12:39)
[2017-06-29] MEDS ORDERED: Albuterol 2.5 MG/3 ML NEB.SOL* (0.083%) INH ONE (12:40)
[2017-06-29 12:55] LABS: Hematocrit 47 % (42-52); Mean Corpuscular Volume 88 fL (80-94); Mean Platelet Volume 9 um3 (7.4-10.4); Red Blood Count 5.25 10^6/ul (4.0-5.4); Red Cell Distribution Width 15 % (10.5-15); White Blood Count 12.8 10^3/ul (3.5-10.8)
[2017-06-29 12:56] LABS: Add Diff/Slide Review? Slide Review Added; Comments Flag Yes
[2017-06-29] MEDS ORDERED: Ondansetron INJ* 2 MG/ML VIAL ONE (12:56)
[2017-06-29] MEDS ORDERED: Ondansetron INJ* 2 MG/ML VIAL IV ONE (12:59)
[2017-06-29] MEDS ORDERED: NS 0.9% 1000 ML* 1,000 ML IV SCH ×4 (13:00→15:45)
--- NOTE | 2017-06-29 13:02 | RAD ---
Indication: Severe chest pain for 45 minutes. Comparison: June 18, 2017 chest radiograph. September 21, 2016 CT abdomen. Technique: Upright AP 1240 hours Report: Low lung volumes with crowding of the pulmonary markings and subsegmental atelectasis. Negative for pleural effusion or pneumothorax. No suggestion of cardiomegaly. Unremarkable central pulmonary vasculature and mediastinal contours accounting for low lung volumes. IMPRESSION: Limited hypoventilated exam without compelling stigmata of acute cardiopulmonary disease. Consider upright PA and lateral chest views for further assessment if clinically feasible.
[2017-06-29] MEDS ORDERED: HYDROmorphone INJ* 1 MG/ML CARPUJECT SYRINGE IV SLOW PU ONE ×2 (13:11→14:53)
[2017-06-29 13:44] LABS: Mean Corpuscular Hemoglobin 30 pg (27-31)
[2017-06-29 13:45] LABS: Mean Corpuscular HGB Conc 34 g/dl (31-36)
[2017-06-29 13:51] LABS: Hemoglobin 15.6 g/dl (14.0-18.0)
[2017-06-29 13:55] LABS: Eosinophils % 2 % (0-6); Immature Granulocytes 7 % (0-9); Metamyelocytes % 3 % (0-2); Myelocytes % 3 % (0-1); Neutrophil % 48 % (38-83)
[2017-06-29 13:56] LABS: RBC Morphology Normal (Normal)
[2017-06-29] MEDS ORDERED: Piperacillin/Tazobactam VIAL*) 3.375 GM in NS 0.9% 100 ML* 100 ML IVPB ONE (14:48)
[2017-06-29] MEDS ORDERED: NS 0.9% 100 ML* 100 ML ONE (15:30)
[2017-06-29 15:52] LABS: Albumin 4.6 g/dL (3.2-5.2); Alkaline Phosphatase 38 U/L (34-104); Anion Gap 6 mmol/L (2-11); CO2 Carbon Dioxide 24 mmol/L (22-32); Calcium 8.6 mg/dL (8.6-10.3); Chloride 95 mmol/L (101-111); Cholesterol 286 mg/dL; EGFR African American 42.6 (>60); EGFR Non-African American 33.1 (>60); Globulin 1.8 g/dL (2-4); Glucose 321 mg/dL (70-100); HDL Cholesterol 19.5 mg/dL; Sodium 125 mmol/L (133-145); Total Protein 6.4 g/dL (6.4-8.9)
[2017-06-29] MEDS ORDERED: Zosyn 3.375 GM IV - ED ONCE IVPB ONE ×2 (16:00)
[2017-06-29 16:11] LABS: Triglycerides 2290 mg/dL
[2017-06-29 16:27] LABS: LDL Cholesterol Direct 35 mg/dL; Lipase 3804 U/L (11.0-82.0)
[2017-06-29] MEDS ORDERED: Insulin LISPRO* 1 UNITS UNIT SUBCUT ONE (17:00)
--- NOTE | 2017-06-29 17:00 | RAD ---
CLINICAL HISTORY: Pancreatitis COMPARISON: September 21, 2016 TECHNIQUE: Multiple contiguous axial CT scans were obtained of the abdomen , without intravenous contrast enhancement. Coronal and sagittal multiplanar reformations are submitted for review. Oral contrast was administered. FINDINGS: The study is limited by the lack of intravenous contrast. This limits evaluation of the solid organs and vasculature. LUNG BASES: There is minimal dependent atelectasis of the lung bases bilaterally. LIVER: The liver is diffusely low in attenuation compared to the spleen. There are no focal hepatic parenchymal masses. The liver is enlarged measuring 25 cm in long axis. BILE DUCTS: There is no intrahepatic or extrahepatic biliary dilatation. GALLBLADDER: The gallbladder is incompletely distended but is grossly normal. PANCREAS: The pancreas is edematous with extensive peripancreatic stranding and a small amount of fluid along the anterior pararenal fascia on the left. SPLEEN: Normal in size and appearance. UPPER GI TRACT: Evaluation of the gastrointestinal tract is limited by incomplete gastric distention. The upper GI tract is unremarkable. SMALL BOWEL AND MESENTERY: There is stranding of the mesentery of the small bowel along the upper abdomen adjacent to the pancreas. There is no obstruction. COLON: The colon is normal in contour, course, caliber. There is no pericolonic inflammatory change. ADRENALS: There is a stable small right adrenal nodule. KIDNEYS: The kidneys are normal in shape, size, contour, and axis. There is no hydronephrosis or nephrolithiasis. AORTA: The aorta is normal. IVC: Unremarkable LYMPH NODES: There is no lymphadenopathy by size criteria. ABDOMINAL WALL: There is no evidence for abdominal wall hernia. BONES AND SOFT TISSUES: Unremarkable OTHER: None IMPRESSION: PERIPANCREATIC INFLAMMATORY CHANGE CONSISTENT WITH ACUTE PANCREATITIS. HEPATOMEGALY WITH FATTY INFILTRATION OF LIVER.
[2017-06-29] MEDS ORDERED: Zolpidem TAB* 10 MG PO PRN (17:15)
[2017-06-29] MEDS ORDERED: Albuterol HFA INHALER* 8 gm MDI INH PRN (17:15)
[2017-06-29] MEDS ORDERED: GuaiFENesin DM sugar free* 5 ML UDC PO PRN (17:15)
[2017-06-29] MEDS ORDERED: Benzonatate CAP* 100 MG PO PRN (17:15)
[2017-06-29] MEDS ORDERED: Albuterol/Ipratropium NEB.SOL* Albuterol 2.5 MG/Ipratropium 0.5 MG 3 ML INH PRN (17:15)
[2017-06-29] MEDS: HYDROmorphone INJ* 2 MG/ML CARPUJECT SYRINGE IV SLOW PU PRN ×2 (18:50→23:43)
[2017-06-29] MEDS: NS 0.9% 1000 ML* 1,000 ML IV SCH (18:57)
[2017-06-29 19:56] LABS: ALT 58 U/L (7-52); Blood Urea Nitrogen 14 mg/dL (6-24); Triglycerides 1331 mg/dL
[2017-06-29] MEDS: Heparin VIAL(*) 5000 UNITS/ML VIAL (FIVE THOUSAND) SUBCUT SCH (21:48)
[2017-06-29] MEDS: Omeprazole CAP* 20 MG PO SCH (21:49)
--- NOTE | 2017-06-29 23:36 | HP ---
CC: Rufina Epperson MD * HISTORY AND PHYSICAL: DATE OF ADMISSION: 06/29/17 PRIMARY CARE PROVIDER: Rufina Epperson MD ATTENDING PHYSICIAN: Dr. Brian Price * (dictated by Viola Baker NP) CHIEF COMPLAINT: Chest discomfort. HISTORY OF PRESENT ILLNESS: Mr. Ozuna is a 56-year-old man with past medical history significant for diabetes mellitus, COPD, hypertension, GERD, hypertriglyceridemia, PTSD, and depression, who presents to the emergency room today with onset of sternal chest discomfort. He has found nothing that worsens or alleviates the pain. The patient reports a history of hypertriglyceridemia with triglycerides greater than 2000 in the past. He has had previous episodes of pancreatitis and had been hospitalized in September of this year. The patient also reports having laryngitis with possible cancer. He is scheduled to have a biopsy on 07/11/17. He has been following with ENT. He denies any fevers, chills, a cough for a few months. He denies shortness of breath. He reports nausea, denies diarrhea. Reports upper abdominal pain. He also reports diaphoresis. He denies any urinary symptoms. He presented to the emergency room for further evaluation. It is to note that the patient was seen in the emergency room on 06/18/17 with complaints of sore throat. He was found to be hyperglycemic and was referred to Dr. Jackson. At that time, his blood work was too lipemic to have all his labs run. While in the emergency room, the patient had labs that again showed significant evidence of being lipemic. He was found to have a lipase of 3804, triglycerides of 2290. He had a troponin of 0.00. He had an EKG showing a sinus tachycardia and an incomplete right bundle branch block and left anterior facet block, similar to previous EKG. He had a chest x-ray showing limited hypoventilated scan without compelling stigmata of acute cardiopulmonary disease. He also had an abdomen CT showing peripancreatic inflammatory changes consistent with acute pancreatitis. The Hospitalists were asked to evaluate the patient for admission. PAST MEDICAL HISTORY: 1. Diabetes mellitus type 2. 2. COPD. 3. Hypertension. 4. GERD. 5. Hypertriglyceridemia. 6. Posttraumatic stress disorder. 7. Depression. 8. Pancreatitis. PAST SURGICAL HISTORY: None. HOME MEDICATIONS: Include: 1. Ambien 10 mg oral daily at bedtime. 2. Guaifenesin DM 5 mL oral daily as needed for cough. 3. Omeprazole 20 mg oral twice daily. 4. Mirtazapine 45 mg oral daily. 5. Metformin 1000 mg oral twice daily. 6. Concerta ER 54 mg oral daily. 7. Lisinopril/hydrochlorothiazide /.5 one tablet oral daily. 8. Guaifenesin 600 mg oral daily as needed for cough. 9. Glipizide 10 mg oral daily. 10. Tessalon 100 mg oral 3 times daily as needed for cough. 11. Atorvastatin 40 mg oral daily. 12. Albuterol/ipratropium nebulizers 1 neb every 6 hours as needed for shortness of breath or wheeze. 13. Albuterol HFA 2 puffs inhalation every 4 hours as needed for shortness of breath or wheeze. ALLERGIES: DARVON-N. FAMILY HISTORY: The patient denies any family history of coronary artery disease. Father had a history of diabetes mellitus and leukemia and the patient' s father had a history of lung cancer. SOCIAL HISTORY: The patient is a former smoker. He denies alcohol or recreational drug use. His , Brisa Rm, will be his surrogate decision maker in the event he is unable to make decisions for himself. REVIEW OF SYSTEMS: I performed a 14-point of review of systems. All the pertinent positives and negatives are mentioned in the history of present illness. The remaining review of systems are negative. PHYSICAL EXAMINATION GENERAL APPEARANCE: The patient is alert, pleasant, and appears to be in no acute distress. VITAL SIGNS: Temperature 96.8, heart rate 97, respiratory rate 18, O2 sat 94% on room air, blood pressure 155/71. HEENT: Head: Normocephalic, atraumatic. EENT: Pupils are equal and reactive to light. Extraocular movements are intact. NECK: Supple. RESPIRATORY: There is no accessory muscle use. The lungs are clear, but diminished bilaterally. CARDIOVASCULAR: Regular rate and rhythm. S1 and S2 present. There are no murmurs, rubs, or gallops heard. ABDOMEN: Large, soft and tender, most notably in the epigastric area in the left upper quadrant. There are bowel sounds present x4. EXTREMITIES: There is no lower extremity edema. DP and PT pulses are 2+ and symmetric. MUSCULOSKELETAL: There is no clubbing or cyanosis noted. The patient exhibits good strength in all extremities. NEUROLOGICAL: The patient is alert and oriented x4. Cranial nerves II through XII are grossly intact. PSYCHOLOGICAL: The patient is calm and cooperative. SKIN: There are no rashes or abnormalities. DIAGNOSTIC STUDIES/LAB DATA: Sodium 125, potassium test unable to be performed , chloride 95, CO2 24, BUN test unable to be performed, creatinine 2.09, glucose 321. Total bilirubin 1.20. AST and ALT unable to be performed. Lipase 3804. Triglycerides 2290. Lactic acid 2.4. White blood cell count 12.8, hemoglobin 15.6, hematocrit 47, and platelet count 364. Troponin 0.00. EKG shows a sinus tachycardia and a rate of 100, incomplete right bundle-branch block and a left anterior facet block. This EKG is similar to previous EKG from 06/18/17. Chest x-ray from today. Radiologist's impression, limited hypoventilated exam without compelling stigmata of acute cardiopulmonary disease. Consider upright PA and lateral chest views for further assessment if clinically feasible. Abdomen and pelvis CT from today. Radiologist's impression: Peripancreatic inflammatory change consistent with acute pancreatitis. Hepatomegaly with fatty infiltration of the liver. IMPRESSION: Mr. Ozuna is a 56-year-old male with past medical history significant for diabetes mellitus, chronic obstructive pulmonary disease, hypertension, gastroesophageal reflux disease, hypertriglyceridemia, posttraumatic stress disorder, depression, and previous pancreatitis, who presents to the emergency room with complaints of chest pain. He will be admitted as an inpatient for acute pancreatitis. ASSESSMENT AND PLAN: 1. Acute pancreatitis. We will make the patient NPO. We will give him IV hydration, some pain management and nausea medicine. We will trend his lipase and amylase, recheck his labs in the morning. He does have mild lactic acidosis. We will recheck his lactic acid. Many of his labs were unable to be run due to the lipemic nature of his blood. I suspect this is secondary to hypertriglyceridemia as his triglycerides are greater than 2000 and this is a similar pattern to previously. He denies any alcohol use. 2. Diabetes mellitus. We are going to hold the patient's oral agents. We will place him on a lispro sliding scale with fingersticks a.c. and h.s. This time his creatinine is elevated, I would recommend not resuming his metformin if his creatinine continues to be elevated greater than 1.5. 3. Chronic obstructive pulmonary disease: The patient will be continued on his home nebulizers and inhalers as needed. 4. Hypertension. Continue the patient's home lisinopril/hydrochlorothiazide. 5. Gastroesophageal reflux disease. We will continue the patient's home omeprazole. 6. Hypertriglyceridemia. We will continue the patient's home atorvastatin. I am going to try to recheck fasting lipids in the morning and see if after hydration we are able to rerun his labs. 7. Posttraumatic stress disorder and depression. The patient will be continued on his home Concerta. 8. Laryngitis with possible cancer. The patient should follow up for his biopsy scheduled for 07/11/17. 9. Fluid, electrolytes, and nutrition. The patient is going to be n.p.o. with IV hydration. 10. Code status. Full code. 11. DVT prophylaxis. The patient is at high risk and will be placed on subcu heparin. 12. Disposition. Inpatient. TIME SPENT: Time for this admission was approximately 60 minutes, greater than half of that was spent with the patient and his discussing medications, past medical history, the events leading up to his arrival today, performing a physical examination. Reviewed by LUZ MARINA LICONA 07/04/17 1937 [id number] #: [id number] [place]
[2017-06-30] MEDS ORDERED: Dextrose 50% Syringe 50 ML* 25 GM/50 ML SYRINGE IV PUSH PRN (01:28)
[2017-06-30] MEDS: HYDROmorphone INJ* 2 MG/ML CARPUJECT SYRINGE IV SLOW PU PRN ×7 (02:25→22:25)
[2017-06-30] MEDS: NS 0.9% 1000 ML* 1,000 ML IV SCH ×5 (03:19→19:26)
[2017-06-30] MEDS: Heparin VIAL(*) 5000 UNITS/ML VIAL (FIVE THOUSAND) SUBCUT SCH ×3 (06:18→21:59)
[2017-06-30] MEDS: Insulin LISPRO* 1 UNITS UNIT SUBCUT SCH ×4 (06:28→23:39)
[2017-06-30 07:50] LABS: Hematocrit 47 % (42-52); Mean Corpuscular HGB Conc 34 g/dl (31-36); Mean Corpuscular Hemoglobin 31 pg (27-31); Mean Corpuscular Volume 90 fL (80-94); Mean Platelet Volume 9 um3 (7.4-10.4); Red Blood Count 5.19 10^6/ul (4.0-5.4); Red Cell Distribution Width 14 % (10.5-15); White Blood Count 10.1 10^3/ul (3.5-10.8)
[2017-06-30] MEDS: Omeprazole CAP* 20 MG PO SCH ×2 (07:57→21:25)
[2017-06-30] MEDS: Mirtazapine TAB* 15 MG PO SCH (07:57)
[2017-06-30 08:04] LABS: ALT 44 U/L (7-52); Alkaline Phosphatase 42 U/L (34-104); Amylase 534 U/L (29-103); BUN/Creatinine Ratio 7.4 (8-20); Blood Urea Nitrogen 21 mg/dL (6-24); CO2 Carbon Dioxide 20 mmol/L (22-32); Calcium 7.3 mg/dL (8.6-10.3); Chloride 101 mmol/L (101-111); Cholesterol 151 mg/dL; EGFR African American 29.9 (>60); EGFR Non-African American 23.3 (>60); Globulin 2.9 g/dL (2-4); Glucose 376 mg/dL (70-100); HDL Cholesterol 16.6 mg/dL; Sodium 131 mmol/L (133-145); Total Protein 5.9 g/dL (6.4-8.9); Triglycerides 438 mg/dL
[2017-06-30 08:20] LABS: LDL Cholesterol Direct 18 mg/dL
[2017-06-30 08:36] LABS: Lipase 1203 U/L (11.0-82.0)
--- NOTE | 2017-06-30 08:48 | PN ---
Subjective Date of Service: 06/30/17 Interval History: Pain in epigastric radiating to the back, burning/aching/stabbing - relieved with pain meds but returns prior to next dose He does not want any change to medications This feels similar to last episode of pancreatitis Objective Active Medications: Albuterol (Ventolin Hfa Inhaler*) 2 puff INH Q4H PRN PRN Reason: WHEEZING Albuterol/Ipratropium (Duoneb (Albuterol 2.5 Mg/Ipratropium 0.5 Mg)) 1 neb INH Q6H PRN PRN Reason: WHEEZING Dextrose (D50w Syringe 50 Ml*) 12.5 gm IV PUSH .FOR FS < 60 - SS PRN PRN Reason: FS < 60 Heparin Sodium (Porcine) (Heparin Vial(*)) 5,000 units SUBCUT Q8HR [facility] Last Admin: 06/30/17 06:18 Dose: 5,000 units Hydromorphone HCl (Dilaudid Inj*) 2 mg IV SLOW PU Q2H PRN PRN Reason: PAIN Last Admin: 06/30/17 07:26 Dose: 2 mg Sodium Chloride (Ns 0.9% 1000 Ml*) 1,000 mls @ 250 mls/hr IV PER RATE [facility] Stop: 07/02/17 12:25 Insulin Human Lispro (Humalog*) 0 units SUBCUT Q6HR [facility] PRN Reason: Protocol Last Admin: 06/30/17 06:28 Dose: 10 units Mirtazapine (Remeron Tab*) 45 mg PO DAILY [facility] Last Admin: 06/30/17 07:57 Dose: Not Given Omeprazole (Prilosec Cap*) 20 mg PO BID [facility] Last Admin: 06/30/17 07:57 Dose: Not Given Ondansetron HCl (Zofran Inj*) 4 mg IV Q6H PRN PRN Reason: NAUSEA Vital Signs - 8 hr 06/30/17 06/30/17 06/30/17 02:25 03:58 04:00 Temperature 98.1 F Pulse Rate 117 117 Respiratory 20 18 Rate Blood Pressure 91/56 (mmHg) O2 Sat by Pulse 86 86 Oximetry 06/30/17 06/30/17 06/30/17 04:13 04:56 07:08 Temperature Pulse Rate 115 Respiratory 22 17 Rate Blood Pressure (mmHg) O2 Sat by Pulse 93 Oximetry 06/30/17 06/30/17 06/30/17 07:09 07:11 07:26 Temperature Pulse Rate Respiratory 20 20 18 Rate Blood Pressure (mmHg) O2 Sat by Pulse Oximetry 06/30/17 06/30/17 07:41 08:31 Temperature 98.1 F Pulse Rate 103 Respiratory 18 18 Rate Blood Pressure 83/44 (mmHg) O2 Sat by Pulse 95 Oximetry Oxygen Devices in Use Now: None, Nasal Cannula Appearance: Sitting on edge of bed, NAD Eyes: No Scleral Icterus, PERRLA Ears/Nose/Mouth/Throat: Clear Oropharnyx, - - dry MM Neck: NL Appearance and Movements; NL JVP, Trachea Midline Respiratory: Symmetrical Chest Expansion and Respiratory Effort, - - course BS throughout Cardiovascular: RRR Abdominal: - - distended, soft, TTP throughout, +bs Extremities: No Edema Skin: No Rash or Ulcers Neurological: Alert and Oriented x 3 Result Diagrams: 06/30/17 07:34 06/30/17 07:34 Assess/Plan/Problems-Billing Assessment: 56 yo h/o COPD, DM, depression pancreatitis in September 2016 presents with abdominal pain found with pancreatitis again complicated by ARF - Patient Problems (1) Pancreatitis Code(s): K85.90 - ACUTE PANCREATITIS WITHOUT NECROSIS OR INFECTION, UNSP SNOMED Code(s): 04192326 Comment: TG 2290 on presentation >400 fasting No e/o biliary dz on CT, denies alcohol Increase fluids to 250cc/hr NPO status pain control (2) Acute kidney failure Comment: In setting of pancreatitis increase NS to 250cc/hr repeat labs tomorrow (3) Hoarse voice quality Comment: planned biopsy to r/o malignancy at the end of this month Is there pancreatic mass contributing to recurrent pancreatitis? Can consider additional imaging if biopsy positive or after renal failure resolved (4) Depression Comment: holding meds while NPO (5) Diabetes Comment: Glucose elevated this AM Start lantus 5 units and titrate as needed c/w lispro SS holding PO meds (6) Hypertension Comment: holding meds while NPO treat PRN if needed (7) DVT prophylaxis Comment: HSQ
[2017-06-30] MEDS ORDERED: FENOFIBRATE 54 MG PO SCH (09:00)
[2017-06-30] MEDS ORDERED: Hydrochlorothiazide TAB* 25 MG PO SCH (09:00)
[2017-06-30] MEDS ORDERED: Atorvastatin* 40 MG TAB PO SCH (09:00)
[2017-06-30] MEDS ORDERED: Lisinopril TAB* 10 MG PO SCH (09:00)
[2017-06-30] MEDS ORDERED: Methylphenidate ER TAB* 18 MG PO SCH (09:00)
[2017-06-30 09:03] LABS: Anion Gap 10 mmol/L (2-11); Potassium 5.7 mmol/L (3.5-5.0)
[2017-06-30] MEDS: Insulin GLARGINE(*) 1 UNITS UNIT SUBCUT SCH (09:40)
[2017-06-30 16:49] LABS: BUN/Creatinine Ratio 7.2 (8-20); Calcium 7.2 mg/dL (8.6-10.3); EGFR African American 24.9 (>60); EGFR Non-African American 19.4 (>60)
[2017-06-30 16:50] LABS: Potassium 5.1 mmol/L (3.5-5.0)
[2017-07-01] MEDS: NS 0.9% 1000 ML* 1,000 ML IV SCH ×5 (01:15→22:55)
[2017-07-01] MEDS: HYDROmorphone INJ* 2 MG/ML CARPUJECT SYRINGE IV SLOW PU PRN ×4 (04:52→20:19)
[2017-07-01 05:16] LABS: BUN/Creatinine Ratio 14.4 (8-20); Calcium 7.3 mg/dL (8.6-10.3); EGFR African American 46.2 (>60); EGFR Non-African American 35.9 (>60)
[2017-07-01] MEDS: Heparin VIAL(*) 5000 UNITS/ML VIAL (FIVE THOUSAND) SUBCUT SCH ×3 (05:50→20:19)
[2017-07-01] MEDS: Insulin LISPRO* 1 UNITS UNIT SUBCUT SCH ×4 (05:50→23:59)
[2017-07-01] MEDS: Omeprazole CAP* 20 MG PO SCH ×2 (07:48→20:22)
[2017-07-01] MEDS: Mirtazapine TAB* 15 MG PO SCH (07:48)
[2017-07-01] MEDS: Insulin GLARGINE(*) 1 UNITS UNIT SUBCUT SCH (07:49)
--- NOTE | 2017-07-01 13:10 | RAD ---
CLINICAL HISTORY: Worsening pain, hypertension COMPARISON: CT of the abdomen dated June 29, 2017 TECHNIQUE: Multiple contiguous axial CT scans were obtained of the abdomen and pelvis, without intravenous contrast enhancement. Coronal and sagittal multiplanar reformations are submitted for review. Oral contrast was administered. FINDINGS: The study is limited by the lack of intravenous contrast. This limits evaluation of the solid organs and vasculature. LUNG BASES: There are trace bilateral pleural effusions with minimal bibasilar atelectasis. LIVER: The liver is diffusely low in attenuation compared to the spleen. There are no focal hepatic parenchymal masses. The liver is homogeneously enlarged. BILE DUCTS: There is no intrahepatic or extrahepatic biliary dilatation. GALLBLADDER: The gallbladder is normal, without pericholecystic inflammatory change. PANCREAS: Again noted is extensive peripancreatic inflammatory change and fluid without loculated fluid collection. This has progressed compared to the June 29, 2017 examination. SPLEEN: Normal in size and appearance. UPPER GI TRACT: Evaluation of the gastrointestinal tract is limited by incomplete gastric distention. The upper GI tract is unremarkable. SMALL BOWEL AND MESENTERY: The small bowel is normal in contour, course, and caliber. There is no obstruction or dilatation. COLON: The colon is normal in contour, course, caliber. There is no pericolonic inflammatory change. ADRENALS: Normal bilaterally. KIDNEYS: Renal cysts are noted on the left. There is no hydronephrosis or nephrolithiasis. BLADDER: The bladder is smooth in contour. PELVIC ORGANS: The prostate gland is normal. The seminal vesicles are symmetric. AORTA: The aorta is normal. IVC: Unremarkable LYMPH NODES: There is no lymphadenopathy by size criteria. ABDOMINAL WALL: There are bilateral fat-containing hernias. BONES AND SOFT TISSUES: There are bilateral pars defects at L5 without spondylolisthesis. OTHER: There is a small amount of ascites IMPRESSION: 1. AGAIN NOTED IS PERIPANCREATIC INFLAMMATORY CHANGE AND FLUID CONSISTENT WITH ACUTE PANCREATITIS. THIS HAS PROGRESSED COMPARED TO JUNE 29, 2017. 2. THERE IS A SMALL AMOUNT OF ASCITES. 3. HEPATOMEGALY WITH FATTY INFILTRATION OF LIVER. 4. BILATERAL FAT-CONTAINING INGUINAL HERNIAS. 5. SPONDYLOLYSIS OF L5
--- NOTE | 2017-07-01 15:00 | PN ---
Subjective Date of Service: 07/01/17 Interval History: Abdomen pain similar as yesterday or a little improved No BM, +flatus Breathing feels a little more difficult no cough No N/V Episode today where he became more confused, didnt know why he was in the hospital. This correlated with dilaudid dose Objective Active Medications: Albuterol (Ventolin Hfa Inhaler*) 2 puff INH Q4H PRN PRN Reason: WHEEZING Albuterol/Ipratropium (Duoneb (Albuterol 2.5 Mg/Ipratropium 0.5 Mg)) 1 neb INH Q6H PRN PRN Reason: WHEEZING Dextrose (D50w Syringe 50 Ml*) 12.5 gm IV PUSH .FOR FS < 60 - SS PRN PRN Reason: FS < 60 Heparin Sodium (Porcine) (Heparin Vial(*)) 5,000 units SUBCUT Q8HR [facility] Last Admin: 07/01/17 12:55 Dose: 5,000 units Hydromorphone HCl (Dilaudid Inj*) 2 mg IV SLOW PU Q2H PRN PRN Reason: PAIN Last Admin: 07/01/17 14:42 Dose: 2 mg Sodium Chloride (Ns 0.9% 1000 Ml*) 1,000 mls @ 250 mls/hr IV PER RATE [facility] Stop: 07/02/17 19:29 Last Admin: 07/01/17 01:15 Dose: 250 mls/hr Sodium Chloride (Ns 0.9% 1000 Ml*) 1,000 mls @ 200 mls/hr IV PER RATE [facility] Last Admin: 07/01/17 12:53 Dose: 200 mls/hr Insulin Glargine (Lantus(*)) 5 units SUBCUT Q24H [facility] Last Admin: 07/01/17 07:49 Dose: 5 units Insulin Human Lispro (Humalog*) 0 units SUBCUT Q6HR [facility] PRN Reason: Protocol Mirtazapine (Remeron Tab*) 45 mg PO DAILY [facility] Last Admin: 07/01/17 07:48 Dose: 45 mg Omeprazole (Prilosec Cap*) 20 mg PO BID [facility] Last Admin: 07/01/17 07:48 Dose: 20 mg Ondansetron HCl (Zofran Inj*) 4 mg IV Q6H PRN PRN Reason: NAUSEA Vital Signs - 8 hr 07/01/17 07/01/17 07/01/17 07:49 08:00 09:10 Temperature Pulse Rate Respiratory 18 24 18 Rate Blood Pressure (mmHg) O2 Sat by Pulse Oximetry 07/01/17 07/01/17 07/01/17 10:50 11:29 12:01 Temperature 98.1 F 98.1 F Pulse Rate 119 116 121 Respiratory 20 18 24 Rate Blood Pressure 114/67 91/46 109/65 (mmHg) O2 Sat by Pulse 91 92 94 Oximetry 07/01/17 07/01/17 07/01/17 12:45 13:51 14:42 Temperature Pulse Rate 121 122 Respiratory 20 16 18 Rate Blood Pressure 108/72 115/68 (mmHg) O2 Sat by Pulse 94 Oximetry Oxygen Devices in Use Now: None, Nasal Cannula Appearance: NAD Eyes: No Scleral Icterus, PERRLA Ears/Nose/Mouth/Throat: Clear Oropharnyx, Mucous Membranes Moist Neck: NL Appearance and Movements; NL JVP, Trachea Midline Respiratory: Symmetrical Chest Expansion and Respiratory Effort, Clear to Auscultation, - - clear compared to yesterday Cardiovascular: NL Sounds; No Murmurs; No JVD, RRR Abdominal: - - distended, mild TTP, no rebound/guarding, hypoactive BSs Lymphatic: No Cervical Adenopathy Extremities: - - +1 LE edema Skin: No Rash or Ulcers Neurological: Alert and Oriented x 3 Result Diagrams: 06/30/17 07:34 07/01/17 04:42 Assess/Plan/Problems-Billing Assessment: 56 yo h/o COPD, DM, depression pancreatitis in September 2016 presents with abdominal pain found with pancreatitis again complicated by ARF - Patient Problems (1) Pancreatitis Code(s): K85.90 - ACUTE PANCREATITIS WITHOUT NECROSIS OR INFECTION, UNSP SNOMED Code(s): 13193816 Comment: TG 2290 on presentation >400 fasting No e/o biliary dz on CT, denies alcohol c.w NS at 200cc/hr NPO status pain control CT repeated in setting of declining blood pressure and confusion. Notable for worsening inflammation (2) Acute kidney failure Comment: In setting of pancreatitis Improving c/w NS at 200cc/hr repeat labs tomorrow (3) Hoarse voice quality Comment: planned biopsy to r/o malignancy at the end of this month Is there pancreatic mass contributing to recurrent pancreatitis? Can consider additional imaging if biopsy positive or after renal failure resolved (4) Depression Comment: holding meds while NPO (5) Diabetes Comment: Glucose elevated c/w lantus 5 units and titrate as needed increase lispro SS to highest scale holding PO meds (6) Hypertension Comment: holding meds while NPO treat PRN if needed (7) DVT prophylaxis Comment: HSQ
[2017-07-02] MEDS: HYDROmorphone INJ* 2 MG/ML CARPUJECT SYRINGE IV SLOW PU PRN ×2 (02:00→05:29)
[2017-07-02] MEDS: NS 0.9% 1000 ML* 1,000 ML IV SCH ×3 (04:16→16:27)
[2017-07-02] MEDS: Heparin VIAL(*) 5000 UNITS/ML VIAL (FIVE THOUSAND) SUBCUT SCH ×3 (05:28→21:00)
[2017-07-02] MEDS: Insulin LISPRO* 1 UNITS UNIT SUBCUT SCH ×3 (05:29→17:58)
[2017-07-02 07:08] LABS: Hematocrit 34 % (42-52); Hemoglobin 11.5 g/dl (14.0-18.0); Mean Corpuscular HGB Conc 34 g/dl (31-36); Mean Corpuscular Hemoglobin 31 pg (27-31); Mean Corpuscular Volume 91 fL (80-94); Mean Platelet Volume 9 um3 (7.4-10.4); Red Blood Count 3.68 10^6/ul (4.0-5.4); Red Cell Distribution Width 14 % (10.5-15); White Blood Count 9.9 10^3/ul (3.5-10.8)
[2017-07-02 07:09] LABS: Add Diff/Slide Review? Slide Review Added; Comments Flag Yes
[2017-07-02 07:17] LABS: BUN/Creatinine Ratio 21.7 (8-20); Calcium 7.4 mg/dL (8.6-10.3); EGFR African American 93.3 (>60); EGFR Non-African American 72.5 (>60); Potassium 3.7 mmol/L (3.5-5.0)
[2017-07-02] MEDS: Insulin GLARGINE(*) 1 UNITS UNIT SUBCUT SCH (09:07)
[2017-07-02] MEDS: Mirtazapine TAB* 15 MG PO SCH (09:08)
[2017-07-02] MEDS: Omeprazole CAP* 20 MG PO SCH ×2 (09:08→19:47)
[2017-07-02] MEDS ORDERED: Morphine INJ* 4 MG/ML 1 ML CARPUJECT IV PRN (11:07)
[2017-07-02] MEDS: Morphine INJ* 4 MG/ML 1 ML CARPUJECT IV PRN ×4 (12:05→22:05)
--- NOTE | 2017-07-02 13:50 | PN ---
Subjective Date of Service: 07/02/17 Interval History: Episode of diarrhea Pain is improving and he would like decrease in pain medication Breathing OK but feels "burpy" Objective Active Medications: Albuterol (Ventolin Hfa Inhaler*) 2 puff INH Q4H PRN PRN Reason: WHEEZING Albuterol/Ipratropium (Duoneb (Albuterol 2.5 Mg/Ipratropium 0.5 Mg)) 1 neb INH Q6H PRN PRN Reason: WHEEZING Dextrose (D50w Syringe 50 Ml*) 12.5 gm IV PUSH .FOR FS < 60 - SS PRN PRN Reason: FS < 60 Heparin Sodium (Porcine) (Heparin Vial(*)) 5,000 units SUBCUT Q8HR [facility] Last Admin: 07/02/17 12:04 Dose: 5,000 units Sodium Chloride (Ns 0.9% 1000 Ml*) 1,000 mls @ 100 mls/hr IV PER RATE [facility] Insulin Glargine (Lantus(*)) 5 units SUBCUT Q24H [facility] Last Admin: 07/02/17 09:07 Dose: 5 units Insulin Human Lispro (Humalog*) 0 units SUBCUT Q6HR [facility] PRN Reason: Protocol Last Admin: 07/02/17 12:05 Dose: 3 units Mirtazapine (Remeron Tab*) 45 mg PO DAILY [facility] Last Admin: 07/02/17 09:08 Dose: 45 mg Morphine Sulfate (Morphine Inj (Syringe)*) 4 mg IV Q2H PRN PRN Reason: PAIN Last Admin: 07/02/17 12:05 Dose: 4 mg Omeprazole (Prilosec Cap*) 20 mg PO BID [facility] Last Admin: 07/02/17 09:08 Dose: 20 mg Ondansetron HCl (Zofran Inj*) 4 mg IV Q6H PRN PRN Reason: NAUSEA Vital Signs - 8 hr 07/02/17 07/02/17 07/02/17 07:30 08:00 09:07 Temperature 96.4 F Pulse Rate 103 Respiratory 18 18 18 Rate Blood Pressure 123/77 (mmHg) O2 Sat by Pulse 95 Oximetry 07/02/17 07/02/17 12:05 13:34 Temperature Pulse Rate Respiratory 18 18 Rate Blood Pressure (mmHg) O2 Sat by Pulse Oximetry Oxygen Devices in Use Now: None, Nasal Cannula Appearance: NAD, lying flat Eyes: No Scleral Icterus, PERRLA Ears/Nose/Mouth/Throat: Clear Oropharnyx, Mucous Membranes Moist Neck: NL Appearance and Movements; NL JVP, Trachea Midline Respiratory: Symmetrical Chest Expansion and Respiratory Effort, Clear to Auscultation Cardiovascular: NL Sounds; No Murmurs; No JVD, RRR Abdominal: - - soft, +distended, NTTP Lymphatic: No Cervical Adenopathy Extremities: - - trace LE edema Skin: No Rash or Ulcers Neurological: Alert and Oriented x 3 Result Diagrams: 07/02/17 06:37 07/02/17 06:37 Assess/Plan/Problems-Billing Assessment: 56 yo h/o COPD, DM, depression pancreatitis in September 2016 presents with abdominal pain found with pancreatitis again complicated by ARF - Patient Problems (1) Pancreatitis Code(s): K85.90 - ACUTE PANCREATITIS WITHOUT NECROSIS OR INFECTION, UNSP SNOMED Code(s): 35156712 Comment: TG 2290 on presentation but >400 fasting No e/o biliary dz on CT, denies alcohol decrease NS at to 100cc/hr NPO status while still in pain. Possible advancement tomorrow pain control CT repeated in setting of declining blood pressure and confusion. Notable for worsening inflammation (2) Acute kidney failure Comment: In setting of pancreatitis resolved NS at 100cc/hr (3) Hoarse voice quality Comment: planned biopsy to r/o malignancy at the end of this month Is there pancreatic mass contributing to recurrent pancreatitis? Can consider additional imaging if biopsy positive or after renal failure resolved (4) Depression Comment: holding meds while NPO (5) Diabetes Comment: better control on low dose lantus c/w lantus 5 units and titrate as needed increased lispro SS to highest scale holding PO meds (6) Hypertension Comment: holding meds while NPO treat PRN if needed (7) DVT prophylaxis Comment: HSQ
[2017-07-03] MEDS: Morphine INJ* 4 MG/ML 1 ML CARPUJECT IV PRN ×6 (01:01→22:26)
[2017-07-03] MEDS: Insulin LISPRO* 1 UNITS UNIT SUBCUT SCH ×4 (01:04→17:43)
[2017-07-03] MEDS: NS 0.9% 1000 ML* 1,000 ML IV SCH ×2 (04:00→15:37)
[2017-07-03] MEDS: Heparin VIAL(*) 5000 UNITS/ML VIAL (FIVE THOUSAND) SUBCUT SCH ×3 (06:02→21:27)
[2017-07-03] MEDS: Mirtazapine TAB* 15 MG PO SCH (09:15)
[2017-07-03] MEDS: Insulin GLARGINE(*) 1 UNITS UNIT SUBCUT SCH (09:15)
[2017-07-03] MEDS: Omeprazole CAP* 20 MG PO SCH ×2 (09:15→21:02)
[2017-07-03] MEDS: Ondansetron INJ* 2 MG/ML VIAL IV PRN (09:47)
[2017-07-03] MEDS ORDERED: Insulin GLARGINE(*) 1 UNITS UNIT SUBCUT ONE (13:47)
--- NOTE | 2017-07-03 13:58 | PN ---
Subjective Date of Service: 07/03/17 Interval History: Pain improved this AM but developed 01/02 aching pain after full liquid diet Repeat but brief episode of confusion - woke up and asked to be unplugged from IVF because he had to leave the hospital. Resolved with reorientation Loose stool this AM No N/V Feels hungry No SOB Objective Active Medications: Albuterol (Ventolin Hfa Inhaler*) 2 puff INH Q4H PRN PRN Reason: WHEEZING Albuterol/Ipratropium (Duoneb (Albuterol 2.5 Mg/Ipratropium 0.5 Mg)) 1 neb INH Q6H PRN PRN Reason: WHEEZING Dextrose (D50w Syringe 50 Ml*) 12.5 gm IV PUSH .FOR FS < 60 - SS PRN PRN Reason: FS < 60 Heparin Sodium (Porcine) (Heparin Vial(*)) 5,000 units SUBCUT Q8HR [facility] Last Admin: 07/03/17 13:07 Dose: 5,000 units Sodium Chloride (Ns 0.9% 1000 Ml*) 1,000 mls @ 100 mls/hr IV PER RATE [facility] Last Admin: 07/03/17 04:00 Dose: 100 mls/hr Insulin Glargine (Lantus(*)) 5 units SUBCUT Q24H [facility] Last Admin: 07/03/17 09:15 Dose: 5 units Insulin Human Lispro (Humalog*) 0 units SUBCUT Q6HR [facility] PRN Reason: Protocol Last Admin: 07/03/17 13:08 Dose: 6 units Mirtazapine (Remeron Tab*) 45 mg PO DAILY [facility] Last Admin: 07/03/17 09:15 Dose: 45 mg Morphine Sulfate (Morphine Inj (Syringe)*) 4 mg IV Q2H PRN PRN Reason: PAIN Last Admin: 07/03/17 06:03 Dose: 4 mg Omeprazole (Prilosec Cap*) 20 mg PO BID [facility] Last Admin: 07/03/17 09:15 Dose: 20 mg Ondansetron HCl (Zofran Inj*) 4 mg IV Q6H PRN PRN Reason: NAUSEA Last Admin: 07/03/17 09:47 Dose: 4 mg Vital Signs - 8 hr 07/03/17 07/03/17 07/03/17 05:50 06:03 07:51 Temperature 97.7 F Pulse Rate 93 Respiratory 18 20 18 Rate Blood Pressure 111/59 (mmHg) O2 Sat by Pulse 95 Oximetry 07/03/17 07/03/17 07/03/17 09:16 11:25 12:41 Temperature 98.9 F 99.8 F Pulse Rate 100 99 Respiratory 16 16 20 Rate Blood Pressure 126/55 119/73 (mmHg) O2 Sat by Pulse 91 95 Oximetry Oxygen Devices in Use Now: Nasal Cannula Appearance: fatigued but no distress Eyes: No Scleral Icterus, PERRLA Ears/Nose/Mouth/Throat: Clear Oropharnyx, Mucous Membranes Moist Neck: NL Appearance and Movements; NL JVP, Trachea Midline Respiratory: Symmetrical Chest Expansion and Respiratory Effort, - - decreased in bases no rales Cardiovascular: NL Sounds; No Murmurs; No JVD, RRR Abdominal: - - soft, +distention, NTTP, +BS, no rebound/gaurding Extremities: - - trace LE edema Neurological: Alert and Oriented x 3, - - cn2-12 intact Result Diagrams: 07/02/17 06:37 07/02/17 06:37 Assess/Plan/Problems-Billing Assessment: 56 yo h/o COPD, DM, depression pancreatitis in September 2016 presents with abdominal pain found with pancreatitis again complicated by ARF - Patient Problems (1) Pancreatitis Code(s): K85.90 - ACUTE PANCREATITIS WITHOUT NECROSIS OR INFECTION, UNSP SNOMED Code(s): 57138965 Comment: TG 2290 on presentation but <500 fasting Start gemfibrazol on discharge No e/o biliary dz on CT, denies alcohol w/c NS at to 100cc/hr advanced to full liquid but developed pain - now NPO again pain control (2) Acute delirium Comment: Suspect hospital acquired delerium Lights on Frequent reorientation (3) Acute kidney failure Comment: In setting of pancreatitis resolved NS at 100cc/hr (4) Hoarse voice quality Comment: planned biopsy to r/o malignancy at the end of this month (5) Depression Comment: holding meds while NPO (6) Diabetes Comment: better control on low dose lantus increase lantus from 5 to 8 units and titrate as needed increased lispro SS to highest scale holding PO meds (7) Hypertension Comment: holding meds while NPO treat PRN if needed (8) DVT prophylaxis Comment: HSQ
[2017-07-04] MEDS: Insulin LISPRO* 1 UNITS UNIT SUBCUT SCH ×5 (00:19→23:51)
[2017-07-04] MEDS: Morphine INJ* 4 MG/ML 1 ML CARPUJECT IV PRN ×6 (00:30→22:00)
[2017-07-04] MEDS: Heparin VIAL(*) 5000 UNITS/ML VIAL (FIVE THOUSAND) SUBCUT SCH ×3 (05:32→21:12)
[2017-07-04] MEDS: NS 0.9% 1000 ML* 1,000 ML IV SCH ×2 (06:17→18:06)
[2017-07-04] MEDS: Mirtazapine TAB* 15 MG PO SCH (10:02)
[2017-07-04] MEDS: Omeprazole CAP* 20 MG PO SCH ×2 (10:02→21:12)
[2017-07-04] MEDS: Insulin GLARGINE(*) 1 UNITS UNIT SUBCUT SCH (10:02)
--- NOTE | 2017-07-04 16:52 | PN ---
Subjective Date of Service: 07/04/17 Interval History: Did not tolerate full liquid diet yesterday 2/2 abdominal pain No pain this AM No additional delirious episodes Objective Active Medications: Albuterol (Ventolin Hfa Inhaler*) 2 puff INH Q4H PRN PRN Reason: WHEEZING Albuterol/Ipratropium (Duoneb (Albuterol 2.5 Mg/Ipratropium 0.5 Mg)) 1 neb INH Q6H PRN PRN Reason: WHEEZING Dextrose (D50w Syringe 50 Ml*) 12.5 gm IV PUSH .FOR FS < 60 - SS PRN PRN Reason: FS < 60 Heparin Sodium (Porcine) (Heparin Vial(*)) 5,000 units SUBCUT Q8HR [facility] Last Admin: 07/04/17 13:06 Dose: 5,000 units Sodium Chloride (Ns 0.9% 1000 Ml*) 1,000 mls @ 100 mls/hr IV PER RATE [facility] Last Admin: 07/04/17 06:17 Dose: 100 mls/hr Insulin Glargine (Lantus(*)) 8 units SUBCUT Q24H [facility] Last Admin: 07/04/17 10:02 Dose: 8 units Insulin Human Lispro (Humalog*) 0 units SUBCUT Q6HR [facility] PRN Reason: Protocol Last Admin: 07/04/17 13:06 Dose: 3 units Mirtazapine (Remeron Tab*) 45 mg PO DAILY [facility] Last Admin: 07/04/17 10:02 Dose: 45 mg Morphine Sulfate (Morphine Inj (Syringe)*) 4 mg IV Q2H PRN PRN Reason: PAIN Last Admin: 07/04/17 14:34 Dose: 4 mg Omeprazole (Prilosec Cap*) 20 mg PO BID [facility] Last Admin: 07/04/17 10:02 Dose: 20 mg Ondansetron HCl (Zofran Inj*) 4 mg IV Q6H PRN PRN Reason: NAUSEA Last Admin: 07/03/17 09:47 Dose: 4 mg Vital Signs - 8 hr 07/04/17 07/04/17 09:09 14:34 Respiratory 16 20 Rate Oxygen Devices in Use Now: Nasal Cannula Appearance: NAD Eyes: No Scleral Icterus, PERRLA Ears/Nose/Mouth/Throat: Clear Oropharnyx, Mucous Membranes Moist Neck: NL Appearance and Movements; NL JVP, Trachea Midline Respiratory: Symmetrical Chest Expansion and Respiratory Effort, - - decreased in bases Cardiovascular: RRR Abdominal: - - distended, NTTP, soft, +bs Neurological: Alert and Oriented x 3 Result Diagrams: 07/02/17 06:37 07/02/17 06:37 Assess/Plan/Problems-Billing Assessment: 56 yo h/o COPD, DM, depression pancreatitis in September 2016 presents with abdominal pain found with pancreatitis again complicated by ARF - Patient Problems (1) Pancreatitis Code(s): K85.90 - ACUTE PANCREATITIS WITHOUT NECROSIS OR INFECTION, UNSP SNOMED Code(s): 65957203 Comment: TG 2290 on presentation but <500 fasting Start gemfibrazol on discharge No e/o biliary dz on CT, denies alcohol w/c NS at to 100cc/hr advanced to clear liquid pain control (2) Acute delirium Comment: Suspect hospital acquired delerium Lights on Frequent reorientation (3) Acute kidney failure Comment: In setting of pancreatitis resolved NS at 100cc/hr (4) Hoarse voice quality Comment: planned biopsy to r/o malignancy at the end of this month (5) Diabetes Comment: better control on low dose lantus increased lantus from 5 to 8 units and titrate as needed increased lispro SS to highest scale holding PO meds (6) Hypertension Comment: holding lisinopril/HCTZ (7) DVT prophylaxis Comment: HSQ
[2017-07-04 17:47] LABS: BUN/Creatinine Ratio 18.4 (8-20); Calcium 8.3 mg/dL (8.6-10.3); EGFR African American 136.9 (>60); EGFR Non-African American 106.5 (>60); Potassium 3.4 mmol/L (3.5-5.0)
[2017-07-04] MEDS: oxyCODONE/Acetamin 5/325 MG* TAB PO PRN ×2 (17:58→21:59)
[2017-07-05] MEDS: oxyCODONE/Acetamin 5/325 MG* TAB PO PRN ×5 (01:53→21:05)
[2017-07-05] MEDS: Morphine INJ* 4 MG/ML 1 ML CARPUJECT IV PRN ×2 (01:53→05:51)
[2017-07-05] MEDS: Heparin VIAL(*) 5000 UNITS/ML VIAL (FIVE THOUSAND) SUBCUT SCH ×4 (05:55→21:09)
[2017-07-05] MEDS: NS 0.9% 1000 ML* 1,000 ML IV SCH (06:06)
[2017-07-05] MEDS: Insulin LISPRO* 1 UNITS UNIT SUBCUT SCH ×4 (06:08→23:36)
[2017-07-05 08:01] LABS: Hemoglobin 11.6 g/dl (14.0-18.0); Mean Corpuscular Volume 91 fL (80-94); Mean Platelet Volume 9 um3 (7.4-10.4)
[2017-07-05 08:03] LABS: Hematocrit 34 % (42-52); Mean Corpuscular HGB Conc 34 g/dl (31-36); Mean Corpuscular Hemoglobin 31 pg (27-31); Red Blood Count 3.76 10^6/ul (4.0-5.4); Red Cell Distribution Width 15 % (10.5-15); White Blood Count 10.2 10^3/ul (3.5-10.8)
[2017-07-05 08:08] LABS: Add Diff/Slide Review? Slide Review Added; Comments Flag Yes
[2017-07-05 08:48] LABS: Eosinophils % 1 % (0-6); Immature Granulocytes 10 % (0-9); Metamyelocytes % 3 % (0-2); Myelocytes % 3 % (0-1); Neutrophil % 72 % (38-83); RBC Morphology Normal (Normal)
[2017-07-05] MEDS: Mirtazapine TAB* 15 MG PO SCH (10:28)
[2017-07-05] MEDS: Omeprazole CAP* 20 MG PO SCH ×2 (10:28→21:05)
[2017-07-05] MEDS: Insulin GLARGINE(*) 1 UNITS UNIT SUBCUT SCH (10:29)
--- NOTE | 2017-07-05 10:39 | PN ---
Subjective Date of Service: 07/05/17 Interval History: Tolerated clear liquid diet Breathing stable Abdomen feels bloated Walking back and forth to bathroom but not further because he feels tired O2sat at rest when seen by this author 91% Objective Active Medications: Albuterol (Ventolin Hfa Inhaler*) 2 puff INH Q4H PRN PRN Reason: WHEEZING Albuterol/Ipratropium (Duoneb (Albuterol 2.5 Mg/Ipratropium 0.5 Mg)) 1 neb INH Q6H PRN PRN Reason: WHEEZING Dextrose (D50w Syringe 50 Ml*) 12.5 gm IV PUSH .FOR FS < 60 - SS PRN PRN Reason: FS < 60 Heparin Sodium (Porcine) (Heparin Vial(*)) 5,000 units SUBCUT Q8HR [facility] Last Admin: 07/05/17 06:10 Dose: 5,000 units Insulin Glargine (Lantus(*)) 8 units SUBCUT Q24H [facility] Last Admin: 07/05/17 10:29 Dose: 8 units Insulin Human Lispro (Humalog*) 0 units SUBCUT Q6HR [facility] PRN Reason: Protocol Last Admin: 07/05/17 06:08 Dose: 3 units Mirtazapine (Remeron Tab*) 45 mg PO DAILY [facility] Last Admin: 07/05/17 10:28 Dose: 45 mg Morphine Sulfate (Morphine Inj (Syringe)*) 2 mg IV Q2H PRN PRN Reason: PAIN Omeprazole (Prilosec Cap*) 20 mg PO BID [facility] Last Admin: 07/05/17 10:28 Dose: 20 mg Ondansetron HCl (Zofran Inj*) 4 mg IV Q6H PRN PRN Reason: NAUSEA Last Admin: 07/03/17 09:47 Dose: 4 mg Oxycodone/Acetaminophen (Percocet 5/325 Tab*) 1 tab PO Q4H PRN PRN Reason: PAIN Last Admin: 07/05/17 10:28 Dose: 1 tab Vital Signs - 8 hr 07/05/17 07/05/17 07/05/17 03:54 05:51 07:50 Respiratory 18 19 18 Rate 07/05/17 07/05/17 08:00 10:28 Respiratory 18 18 Rate Oxygen Devices in Use Now: Nasal Cannula Appearance: NAD Eyes: No Scleral Icterus, PERRLA Ears/Nose/Mouth/Throat: NL Teeth, Lips, Gums, Mucous Membranes Moist Neck: NL Appearance and Movements; NL JVP, Trachea Midline Respiratory: Symmetrical Chest Expansion and Respiratory Effort, Clear to Auscultation Cardiovascular: RRR Abdominal: - - NTTP, distended, +bs, Lymphatic: No Cervical Adenopathy Extremities: No Clubbing, Cyanosis, - - trace to 1+ edema LE b/l Skin: No Rash or Ulcers, No Nodules or Sclerosis Neurological: Alert and Oriented x 3 Result Diagrams: 07/05/17 07:16 07/04/17 17:25 Assess/Plan/Problems-Billing Assessment: 56 yo h/o COPD, DM, depression, pancreatitis in September 2016 presents with abdominal pain found with pancreatitis again complicated by ARF - Patient Problems (1) Pancreatitis Code(s): K85.90 - ACUTE PANCREATITIS WITHOUT NECROSIS OR INFECTION, UNSP SNOMED Code(s): 97763091 Comment: TG 2290 on presentation but <500 fasting. Suspect hypertriglyceridemia as etiology Start gemfibrazol on discharge Nutrition consult and [facility] consult placed for after discharge No e/o biliary dz on CT, denies alcohol Normal saline stopped 07/05 advanced to low fat diet 07/05 pain control - morphine breakthrough decreased to 2mg 07/05 (2) Acute delirium Comment: Suspect hospital acquired delerium moved to window bed Frequent reorientation resolved since 07/04 (3) Acute kidney failure Comment: In setting of pancreatitis resolved (4) Hoarse voice quality Comment: planned biopsy to r/o malignancy at the end of this month (5) Diabetes Comment: better control on low dose lantus increased lantus from 5 to 8 units and titrate as needed increased lispro SS to highest scale holding PO meds (6) Hypertension Comment: lisinopril restrated 07/05 holding HCTZ (7) DVT prophylaxis Comment: HSQ Status and Disposition: Improving pancreatitis. Home when tolerating food, does not require IV narcotics and breathing stable. Suspect 24-48 hrs
[2017-07-05] MEDS: Lisinopril TAB* 10 MG PO SCH (12:47)
[2017-07-05] MEDS: Morphine INJ* 2 MG/ML 1 ML SYRINGE (TWO MG - NEW SYRINGE VERSION) IV PRN ×3 (16:27→23:11)
[2017-07-06] MEDS: oxyCODONE/Acetamin 5/325 MG* TAB PO PRN ×3 (01:03→14:33)
[2017-07-06] MEDS: Morphine INJ* 2 MG/ML 1 ML SYRINGE (TWO MG - NEW SYRINGE VERSION) IV PRN ×4 (01:10→10:13)
[2017-07-06] MEDS: Insulin LISPRO* 1 UNITS UNIT SUBCUT SCH ×3 (05:56→18:15)
[2017-07-06] MEDS: Heparin VIAL(*) 5000 UNITS/ML VIAL (FIVE THOUSAND) SUBCUT SCH ×3 (05:57→21:08)
[2017-07-06] MEDS: Mirtazapine TAB* 15 MG PO SCH (08:17)
[2017-07-06] MEDS: Omeprazole CAP* 20 MG PO SCH ×2 (08:18→21:08)
[2017-07-06] MEDS: Lisinopril TAB* 10 MG PO SCH (08:18)
[2017-07-06] MEDS: Insulin GLARGINE(*) 1 UNITS UNIT SUBCUT SCH (08:19)
[2017-07-06] MEDS: Ondansetron INJ* 2 MG/ML VIAL IV PRN (10:13)
[2017-07-06] MEDS ORDERED: Insulin GLARGINE(*) 1 UNITS UNIT SUBCUT ONE (10:43)
[2017-07-06] MEDS ORDERED: Ibuprofen TAB* 600 MG PO PRN ×2 (15:11)
--- NOTE | 2017-07-06 15:15 | PN ---
Subjective Date of Service: 07/06/17 Interval History: Patient had abd pain after eating breakfast including eggs. Tolerated clear liquids after that, no more pain. Pt states his last A1C was 10. Objective Active Medications: Albuterol (Ventolin Hfa Inhaler*) 2 puff INH Q4H PRN PRN Reason: WHEEZING Albuterol/Ipratropium (Duoneb (Albuterol 2.5 Mg/Ipratropium 0.5 Mg)) 1 neb INH Q6H PRN PRN Reason: WHEEZING Dextrose (D50w Syringe 50 Ml*) 12.5 gm IV PUSH .FOR FS < 60 - SS PRN PRN Reason: FS < 60 Fenofibrate (Tricor(Nf)) 145 mg PO DAILY [facility] Heparin Sodium (Porcine) (Heparin Vial(*)) 5,000 units SUBCUT Q8HR [facility] Last Admin: 07/06/17 12:38 Dose: 5,000 units Insulin Glargine (Lantus(*)) 14 units SUBCUT Q24H [facility] Insulin Human Lispro (Humalog*) 0 units SUBCUT Q6HR [facility] PRN Reason: Protocol Last Admin: 07/06/17 12:39 Dose: 3 units Lisinopril (Prinivil Tab*) 10 mg PO DAILY [facility] Last Admin: 07/06/17 08:18 Dose: 10 mg Mirtazapine (Remeron Tab*) 45 mg PO DAILY [facility] Last Admin: 07/06/17 08:17 Dose: 45 mg Morphine Sulfate (Morphine Inj (Syringe)*) 2 mg IV Q2H PRN PRN Reason: PAIN Last Admin: 07/06/17 10:13 Dose: 2 mg Omeprazole (Prilosec Cap*) 20 mg PO BID [facility] Last Admin: 07/06/17 08:18 Dose: 20 mg Ondansetron HCl (Zofran Inj*) 4 mg IV Q6H PRN PRN Reason: NAUSEA Last Admin: 07/06/17 10:13 Dose: 4 mg Oxycodone/Acetaminophen (Percocet 5/325 Tab*) 1 tab PO Q4H PRN PRN Reason: PAIN Last Admin: 07/06/17 14:33 Dose: 1 tab Vital Signs - 8 hr 07/06/17 07/06/17 07/06/17 08:00 08:36 09:14 Temperature 98.7 F Pulse Rate 86 Respiratory 18 16 18 Rate Blood Pressure 153/87 (mmHg) O2 Sat by Pulse 91 Oximetry 07/06/17 07/06/17 07/06/17 09:15 10:13 13:37 Temperature Pulse Rate Respiratory 18 18 18 Rate Blood Pressure (mmHg) O2 Sat by Pulse Oximetry 07/06/17 14:33 Temperature Pulse Rate Respiratory 18 Rate Blood Pressure (mmHg) O2 Sat by Pulse Oximetry Oxygen Devices in Use Now: None Appearance: Alert, supine in bed. In good spirits. Looks comfortable Eyes: No Scleral Icterus Neck: NL Appearance and Movements; NL JVP, No Thyroid Enlargement, Masses Respiratory: Symmetrical Chest Expansion and Respiratory Effort, Clear to Auscultation, Clear to Percussion Cardiovascular: NL Sounds; No Murmurs; No JVD, RRR, No Edema, - Abdominal: NL Sounds; No Tenderness; No Distention, No Hepatosplenomegaly, - Extremities: No Edema, No Clubbing, Cyanosis, - Skin: No Rash or Ulcers, No Nodules or Sclerosis, - Neurological: Alert and Oriented x 3, NL Sensation Result Diagrams: 07/05/17 07:16 07/04/17 17:25 Assess/Plan/Problems-Billing Assessment: 56 yo h/o COPD, DM, depression, pancreatitis in September 2016 presents with abdominal pain found with pancreatitis again complicated by ARF - Patient Problems (1) Pancreatitis Current Visit: Yes Status: Acute Code(s): K85.90 - ACUTE PANCREATITIS WITHOUT NECROSIS OR INFECTION, UNSP SNOMED Code(s): 97024212 Comment: TG 2290 on presentation but <500 fasting. Suspect hypertriglyceridemia as etiology Start increased dose fenofibrate 07/06. Check lipase, lipids 07/07, advance diet if pancreatitis improved. Nutrition consult and [facility] for after discharge No e/o biliary dz on CT, denies alcohol Normal saline stopped 07/05 advanced to low fat diet 07/05 pain control - morphine breakthrough decreased to 2mg 07/05 (2) Diabetes Current Visit: Yes Status: Acute Code(s): E11.9 - TYPE 2 DIABETES MELLITUS WITHOUT COMPLICATIONS SNOMED Code(s): 62764986 Comment: increased lantus fromto 14 units and titrate as needed increased lispro SS to highest scale Diabetic teaching requested. Pt agrees to self-inject insulin at home, and start doing FS checks at home. Status and Disposition: Improving pancreatitis. Home when tolerating food, does not require IV narcotics and breathing stable. Suspect 24-48 hrs
[2017-07-06] MEDS ORDERED: Ibuprofen TAB* 200 MG PO PRN (16:19)
[2017-07-06] MEDS: CMC:Fenofibrate(NF) 145 MG TAB PO SCH (16:42)
[2017-07-06] MEDS: Ibuprofen TAB* 400 MG PO PRN (16:43)
[2017-07-06] MEDS ORDERED: Atorvastatin* 40 MG TAB PO SCH (17:00)
--- NOTE | 2017-07-06 18:33 | PTEDU ---
Patient Name: ANGEL CHU ANGEL CHU selected video: Everyone Can Carbohydrate Count to view on 07/06/2017 at 6:32:53 PM [facility] [id number]
[2017-07-07] MEDS: oxyCODONE/Acetamin 5/325 MG* TAB PO PRN (00:12)
[2017-07-07] MEDS: Insulin LISPRO* 1 UNITS UNIT SUBCUT SCH ×2 (00:38→06:19)
[2017-07-07] MEDS: Ibuprofen TAB* 400 MG PO PRN (03:57)
[2017-07-07] MEDS: Heparin VIAL(*) 5000 UNITS/ML VIAL (FIVE THOUSAND) SUBCUT SCH (06:19)
[2017-07-07 06:55] LABS: HDL Cholesterol 9.6 mg/dL
[2017-07-07] MEDS ORDERED: Dextrose 50% Syringe 50 ML* 25 GM/50 ML SYRINGE IV PUSH PRN (07:53)
--- NOTE | 2017-07-07 08:10 | PN ---
Progress Note - Progress Note Date of Service: 07/07/17 Note: Time spent on discharge 50 minutes.
[2017-07-07] MEDS ORDERED: Insulin GLARGINE(*) 1 UNITS UNIT SUBCUT SCH (09:00)
[2017-07-07] MEDS: Omeprazole CAP* 20 MG PO SCH (10:15)
[2017-07-07] MEDS: Mirtazapine TAB* 15 MG PO SCH (10:15)
[2017-07-07] MEDS: Lisinopril TAB* 10 MG PO SCH (10:16)
[2017-07-07] MEDS: CMC:Fenofibrate(NF) 145 MG TAB PO SCH (10:23)
--- NOTE | 2017-07-07 10:45 | DS ---
CC: Dr. Bonner; Dr. Epperson DISCHARGE SUMMARY: DATE OF ADMISSION: 06/29/17 DATE OF DISCHARGE: 07/07/17 HOSPITAL COURSE: This 56-year-old man presented with chest discomfort. He was having a number of co ncurrent issues. He had some laryngitis and was scheduled for a laryngeal biopsy, but this has been postponed. The patient's blood sugar was under poor control. His blood was too lipemic to run many tests. His lipase was 3804, triglycerides 2290. CT scan without intravenous contrast showed evidence of pancreatitis. The patient was admitted. He was given intravenous fluids, kept n.p.o. He was given insulin to cont rol his blood sugar. He improved and was able to tolerate low fat diet before discharge. He is benson g to have 2 low fat meals before discharge. He was taught to give himself insulin. He appeared to be motivated to check his blood sugar at home and give himself insulin. His fenofibrate dose was increased while he was in the hospital. He will make efforts to follow up w ith his primary care physician as well as Dr. Gil whom he has not seen in sometime. FINAL DIAGNOSES: 1. Acute pancreatitis. 2. Hypertriglyceridemia. 3. Diabetes. 4. Hypertension. 5. Gastroesophageal reflux disease. 6. Posttraumatic stress disorder. DISCHARGE MEDICATIONS: 1. Atorvastatin 40 mg daily. 2. Fenofibrate 145 mg daily. 3. Ibuprofen 200 mg every 4 hours p.r.n. 4. Glargine pen 15 units daily in the a.m. 5. NovoLog FlexPen 6 units before each meal. 6. Zolpidem 10 mg h.s. p.r.n. 7. Guaifenesin DM 5 mL every day as needed. 8. Omeprazole 20 mg b.i.d. 9. Mirtazapine 45 mg daily. 10. Methylphenidate 54 mg daily. 11. Lisinopril/hydrochlorothiazide 10/12.5 one daily. 12. Guaifenesin ER 600 mg daily p.r.n. 13. Benzonatate 100 mg t.i.d. p.r.n. 14. Albuterol by nebulizer 1 every 6 hours p.r.n. 15. Albuterol inhaler 2 puffs every 4 hours p.r.n. [id number]/[facility] #: [id number]
[2017-07-07] MEDS ORDERED: Insulin LISPRO* 1 UNITS UNIT SUBCUT SCH (11:30)
[2017-07-07 12:56] VITALS: BP 163/84
== END 2017-07-07 13:55 | disposition home or self-care (01) | DRG 439 ==
LOC: ED 12:18 → MED 17:07
PROVIDERS: ADMIT Internal Medicine; ATTEND Internal Medicine
DX: K85.90 Acute pancreatitis without necrosis or infection, unspecified (principal); N17.9 Acute kidney failure, unspecified; E11.65 Type 2 diabetes mellitus with hyperglycemia; J04.0 Acute laryngitis; E78.1 Pure hyperglyceridemia; I10 Essential (primary) hypertension; K21.9 Gastro-esophageal reflux disease without esophagitis; F43.10 Post-traumatic stress disorder, unspecified; J44.9 Chronic obstructive pulmonary disease, unspecified; F32.9 Major depressive disorder, single episode, unspecified; R41.0 Disorientation, unspecified; R49.0 Dysphonia; I45.10 Unspecified right bundle-branch block; I44.4 Left anterior fascicular block; Z88.8 Allergy status to other drugs, medicaments and biological substances; Z88.5 Allergy status to narcotic agent; Z83.3 Family history of diabetes mellitus; Z80.6 Family history of leukemia; Z79.4 Long term (current) use of insulin; Z80.1 Family history of malignant neoplasm of trachea, bronchus and lung; Z87.891 Personal history of nicotine dependence
CPT/HCPCS: 36415; 71010; 74150; 74176; 80048; 80053; 80061; 82150; 83036; 83605; 83690; 83721; 84460; 84478; 84484; 84520; 85025; 87040; 93005; 94640; A9270-GY; J1170; J1644; J2270; J2405; J2543

== ENCOUNTER 2017-10-18 11:28 | Emergency (ER) | payer MEDICARE, OTHER ==
[2017-10-18 11:48] VITALS: BP 147/92
--- NOTE | 2017-10-18 12:55 | RAD ---
INDICATION: Left rib injury. COMPARISON: Comparison is made with a prior chest x-ray study from June 29, 2017. TECHNIQUE: 5 views of the left ribs and dual-energy PA views of the chest were obtained. FINDINGS: No fracture or significant focal osseous abnormality is seen. The heart is within normal limits in size. The lungs are underinflated. There are linear densities at the left lung base most consistent with subsegmental atelectasis. The lungs are otherwise clear. No pleural effusion or pneumothorax is seen. IMPRESSION: NO EVIDENCE FOR FRACTURE.
--- NOTE | 2017-10-18 13:46 | UC ---
Back Pain HPI - HPI Summary HPI Summary: Patient is a 57-year-old male presenting to the with chief complaint of left lower rib pain after a fall approximately 1 week ago. He also states he injured his left forearm, but denies any pain at this time. Range of motion without limitations. Pain is aggravated with cough and breathing deeply, alleviated with rest. He has not been taking any medications which are over-the -counter or otherwise. Alleviated with heat. He is here to assure he does not have a rib fracture. - History of Current Complaint Chief Complaint: UCTrauma Stated Complaint: RIB INJURY Time Seen by Provider: 10/18/17 12:11 Hx Obtained From: Patient Onset/Duration: Sudden Onset Timing: Constant Severity Initially: Moderate Severity Currently: Moderate Pain Intensity: 8 Pain Scale Used: 0-10 Numeric Back Pain: Is Discrete @ - L Rib pain Character: Aching Aggravating Factor(s): Movement Alleviating Factor(s): Rest, Position, Heat Associated Signs And Symptoms: Positive: Negative - Risk Factors AAA Risk Factors: Negative TAD Risk Factors: Negative Cauda Equina Risk Factors: Negative - Allergies/Home Medications Allergies/Adverse Reactions: Allergies Allergy/AdvReac Type Severity Reaction Status Date / Time acetaminophen Allergy See Comment Verified 10/18/17 11:49 [From Darvocet-N] propoxyphene Allergy See Comment Verified 10/18/17 11:49 [From Darvocet-N] PMH/Surg Hx/FS Hx/Imm Hx Previously Healthy: Yes - Surgical History Surgical History: Yes Surgery Procedure, Year, and Place: LASIK EYE SURGERY 2003 - Family History Known Family History: Positive: Other - Cancer - Social History Occupation: Employed Full-time Lives: With Family Alcohol Use: None Substance Use Type: None Smoking Status (MU): Heavy Every Day Tobacco Smoker Type: Cigarettes Amount Used/How Often: 1 pack a day Household Exposure Type: Cigarettes - Immunization History Most Recent Influenza Vaccination: May 2016 Most Recent Tetanus Shot: 6 years ago Most Recent Pneumonia Vaccination: a few years ago Review of Systems Constitutional: Negative Skin: Negative Respiratory: Negative Cardiovascular: Negative Motor: Negative Neurovascular: Negative Musculoskeletal: Arthralgia - L lower rib pain Neurological: Negative Is Patient Immunocompromised?: No All Other Systems Reviewed And Are Negative: Yes Physical Exam Triage Information Reviewed: Yes Appearance: Well-Appearing, Well-Nourished Vital Signs: Initial Vital Signs Temp 97.5 F 10/18/17 11:39 Pulse 92 10/18/17 11:39 Resp 16 10/18/17 11:39 BP 147/92 10/18/17 11:39 Pulse Ox 97 10/18/17 11:39 Vital Signs Reviewed: Yes Eye Exam: Normal Eyes: Positive: Conjunctiva Clear Neck exam: Normal Neck: Positive: Supple Respiratory Exam: Normal Respiratory: Positive: Chest non-tender, Lungs clear Cardiovascular Exam: Normal Cardiovascular: Positive: RRR Musculoskeletal: Positive: Strength Intact Neurological: Positive: Muscle Tone Normal Psychological: Positive: Normal Response To Family, Age Appropriate Behavior Skin Exam: Normal Back Pain Course/Dx - Course Course Of Treatment: Patient evaluated for left rib pain. X-ray of the left ribs and chest were obtained which shows no acute osseous injury. There is no ecchymosis or swelling to the left lower ribs. Discussed results with patient. Suggested ibuprofen 600 mg 3 times daily. He agrees with this plan and is okay for discharge. He is encouraged to continue to breathe deep despite the discomfort. - Differential Dx/Diagnosis Differential Diagnosis/HQI/PQRI: Strain, Sprain Provider Diagnoses: Rib contusion Discharge - Sign-Out/Discharge Documenting (check all that apply): Discharge - Discharge Plan Condition: Stable Disposition: HOME Patient Education Materials: Rib Contusion (ED) Referrals: Astrid Rasmussen MD [Primary Care Provider] - Additional Instructions: Ibuprofen 600mg three times daily Moist heat to the area This will take another week or so to heal - Billing Disposition and Condition Condition: STABLE Disposition: HOME
== END 2017-10-18 13:12 | disposition home or self-care (01) ==
LOC: UCEAST 11:28
DX: S20.20XA Contusion of thorax, unspecified, initial encounter (principal); S59.912A Unspecified injury of left forearm, initial encounter; W19.XXXA Unspecified fall, initial encounter; Y93.9 Activity, unspecified; Y92.9 Unspecified place or not applicable; Z88.6 Allergy status to analgesic agent; Z88.8 Allergy status to other drugs, medicaments and biological substances; F17.210 Nicotine dependence, cigarettes, uncomplicated
CPT/HCPCS: 99212; G0463

== ENCOUNTER 2018-05-01 07:17 | Emergency (ER) | payer MEDICARE, OTHER ==
[2018-05-01 07:28] VITALS: BP 127/76
[2018-05-01] MEDS ORDERED: Ipratropium 0.5MG/2.5ML NEB* 0.5 MG/2.5 ML NEB.SOLN INH ONE (08:13)
[2018-05-01] MEDS ORDERED: Albuterol 2.5 MG/3 ML NEB.SOL* (0.083%) INH ONE (08:13)
[2018-05-01] MEDS ORDERED: predniSONE TAB* 20 MG PO ONE (08:23)
--- NOTE | 2018-05-01 08:40 | RAD ---
INDICATION: Cough and fever COMPARISON: Chest x-ray June 29, 2017 TECHNIQUE: PA and lateral views of the chest were obtained. FINDINGS: The heart and mediastinum are normal in size and contour. There has been interval appearance of faint linear densities at the bilateral lung bases. The lungs are otherwise overall clear. Visualized bones are normal for the patient's age. There is no radiographic evidence of free air beneath the diaphragm IMPRESSION: LINEAR DENSITIES AT THE BILATERAL LUNG BASES ARE MOST CONSISTENT WITH A MILD DEGREE OF ATELECTASIS IN THIS OTHERWISE NONACUTE CHEST X-RAY.
--- NOTE | 2018-05-01 08:44 | UC ---
Respiratory Complaint HPI - HPI Summary HPI Summary: 4-5 DAYS OF PRODUCTIVE COUGH, CHEST/NASAL CONGESTION, HEADACHE, ACHINESS, SUBJECTIVE FEVER AND FATIGUE. PATIENT HAS DIABETES WELL COPD. CURRENTLY STILL SMOKING. DENIES SHORTNESS OF BREATH, CHEST PAIN, DIZZINESS, NAUSEA. HAD FLU SHOT 2 WEEKS AGO. O2SAT ON ARRIVAL 91%. - History of Current Complaint Chief Complaint: UCRespiratory Stated Complaint: CONGESTION Time Seen by Provider: 05/01/18 08:02 Hx Obtained From: Patient Onset/Duration: Gradual Onset, Lasting Days, Still Present Timing: Constant Severity Initially: Moderate Severity Currently: Moderate Pain Intensity: 7 Pain Scale Used: 0-10 Numeric - , Albuterol and I I will give Character: Cough: Productive Aggravating Factors: Deep Breaths, Recumbent Position Alleviating Factors: Nothing Associated Signs And Symptoms: Positive: Fever, Wheezing, Nasal Congestion. Negative: Dyspnea - Allergies/Home Medications Allergies/Adverse Reactions: Allergies Allergy/AdvReac Type Severity Reaction Status Date / Time acetaminophen Allergy See Comment Verified 05/01/18 07:28 [From Darvocet-N] propoxyphene Allergy See Comment Verified 05/01/18 07:28 [From Darvocet-N] Home Medications: Home Medications Atorvastatin* [Lipitor 10 MG*] 10 mg PO 2100 05/01/18 [History Confirmed ] Dulaglutide [Trulicity] 0.75 mg SQ WEEKLY 05/01/18 [History Confirmed 05/01/18] Eszopiclone [Lunesta] 1 mg PO QPM 05/01/18 [History Confirmed 05/01/18] Guaifenesin/Dextromethorphan [Robitussin Cough-Chest Dm Liq] 1 dose PO ONCE PRN 05/01/18 [History Confirmed 05/01/18] PMH/Surg Hx/FS Hx/Imm Hx Endocrine History: Diabetes, Dyslipidemia Cardiovascular History: Hypertension Respiratory History: COPD - Surgical History Surgical History: Yes Surgery Procedure, Year, and Place: LASIK EYE SURGERY 2003 - Family History Known Family History: Positive: Hypertension, Other - Cancer - Social History Alcohol Use: None Substance Use Type: None Smoking Status (MU): Heavy Every Day Tobacco Smoker Type: Cigarettes Amount Used/How Often: 1 pack a day Household Exposure Type: Cigarettes - Immunization History Most Recent Influenza Vaccination: May 2016 Most Recent Tetanus Shot: 6 years ago Most Recent Pneumonia Vaccination: a few years ago Review of Systems Constitutional: Fever, Fatigue ENT: Nasal Discharge Respiratory: Cough Cardiovascular: Negative Gastrointestinal: Negative All Other Systems Reviewed And Are Negative: Yes Physical Exam Triage Information Reviewed: Yes Appearance: No Pain Distress, Well-Nourished, Ill-Appearing - MOD Vital Signs: Initial Vital Signs Temp 98.2 F 05/01/18 07:22 Pulse 98 05/01/18 07:22 Resp 22 05/01/18 07:22 BP 127/76 05/01/18 07:22 Pulse Ox 91 05/01/18 07:22 Vital Signs Reviewed: Yes Eyes: Positive: Conjunctiva Clear ENT: Positive: Hearing grossly normal, Pharynx normal, TMs normal Neck: Positive: Supple, Nontender, No Lymphadenopathy Respiratory: Positive: No respiratory distress, No accessory muscle use, Decreased breath sounds, Rhonchi, Wheezing Cardiovascular Exam: Normal Abdomen Description: Positive: Soft - [place] wasted feels really denies foot, and we will hope is aware some and is aware of the Playing normally equalities [id number] use any now she doesn't use if she is still she doesn't use a little nauseated but if he . Musculoskeletal: Positive: No Edema Neurological: Positive: Alert Psychological: Positive: Age Appropriate Behavior Skin: Negative: rashes UC Diagnostic Evaluation - Laboratory O2 Sat by Pulse Oximetry: 99 - Radiology Xray Interpretation: Positive (See Comments) - LINEAR DENSITIES AT THE BILATERAL LUNG BASES ARE MOST CONSISTENT WITH A MILD DEGREE OF ATELECTASIS IN THIS OTHERWISE NONACUTE CHEST X-RAY. Radiology Interpretation Completed By: ED Physician, Radiologist Re-Evaluation - Re-Evaluation First Eval Re-Evaluation Time: 08:50 - FEELS BETTER AND LUNG EXAM IMPROVED AFTER DUONEB AND PREDNISONE Change: Improved Respiratory Course/Dx - Course Course Of Treatment: PT FEELS, LOOKS AND SOUNDS BETTER AFTER DUONEB AND PREDNISONE. O2SAT STILL 91% ON RA. WILL D/C HOME WITH CLOSE OUTPT F/U IN 2 DAYS FOR RECHECK. TO ED IF SX WORSEN. - Differential Dx/Diagnosis Provider Diagnoses: COPD EXACERBATION Discharge - Sign-Out/Discharge Documenting (check all that apply): Patient Departure All imaging exams completed and their final reports reviewed: Yes - Discharge Plan Condition: Stable Disposition: HOME Prescriptions: Albuterol HFA INHALER* [Ventolin HFA Inhaler*] 2 puff INH Q4H PRN #1 mdi PRN Reason: Shortness Of Breath Azithromycin 500 mg PO DAILY #5 tab Codeine Phosphate/Guaifenesin [Codeine-Guaifen 10-100 mg/5 ml] 5 - 10 ml PO Q6H PRN #150 ml MDD 40ML PRN Reason: Cough predniSONE TAB* [Deltasone TAB*] 50 mg PO DAILY #4 tab Patient Education Materials: COPD (Chronic Obstructive Pulmonary Disease) (ED) Referrals: Astrid Rasmussen MD [Primary Care Provider] - 2 Days Additional Instructions: YOU HAD IMPROVEMENT AFTER A DUONEB BREATHING TREATMENT AND 60MG PREDNISONE. CHEST X-RAY DOES NOT SHOW PNEUMONIA. CONTINUE PREDNISONE FOR 4 MORE DAYS. WATCH YOUR DIET PREDNISONE CAN MAKE YOUR SUGAR GO UP. ALBUTEROL INHALER FOR YOU TO USE NEEDED FOR SHORTNESS OF BREATH AND COUGH. TAKE THE ANTIBIOTICS FOR THE FULL 5 DAYS. COUGH MEDICINE NEEDED. GO TO THE ED WITHOUT FAIL IF YOU DEVELOP SHORTNESS OF BREATH, CHEST PAIN, NAUSEA, DIZZINESS, PERSISTENT/ WORSENING FEVER OR ANY OTHER CONCERNING SYMPTOMS. FOLLOW-UP WITH YOUR PCP OR HERE IN 2 DAYS FOR REEVALUATION. - Billing Disposition and Condition Condition: STABLE Disposition: Home
== END 2018-05-01 09:42 | disposition home or self-care (01) ==
LOC: UCEAST 07:17
DX: J44.1 Chronic obstructive pulmonary disease with (acute) exacerbation (principal); E11.9 Type 2 diabetes mellitus without complications; Z79.4 Long term (current) use of insulin; E78.5 Hyperlipidemia, unspecified; Z88.6 Allergy status to analgesic agent; Z88.5 Allergy status to narcotic agent; F17.210 Nicotine dependence, cigarettes, uncomplicated
CPT/HCPCS: 71046; 99213; G0463; J7512

== ENCOUNTER 2018-05-04 02:32 | Inpatient (IN) | payer MEDICARE, OTHER ==
[2018-05-04] MEDS ORDERED: methylPREDNISolone 125 MG* 2 ML VIAL IV ONE (02:42)
[2018-05-04] MEDS ORDERED: Albuterol 0.5% CONC NEB.SOL* 5 MG/ML 20 ml BOT INH ONE (02:42)
[2018-05-04] MEDS ORDERED: NS 0.9% 1000 ML* 1,000 ML IV ONE (02:42)
--- NOTE | 2018-05-04 02:49 | ED ---
Shortness of Breath - HPI Summary HPI Summary: This is a 57-year-old man with a history of COPD/emphysema, who presents with a one-week history of progressively worsening shortness of breath, worse with supine position. He has also had a worsening cough with production of a moderate amount of sputum. His appetite has been good. There has been no fever. There has been minimal chest pain, mostly with coughing. He was seen at an urgent care center couple of days ago and diagnosed with a COPD exacerbation. He was treated with azithromycin, beta agonist inhalation, cough medication, and prednisone. Despite taking the medication for the last 2-3 days , his symptoms continue to worsen. - History of Current Complaint Chief Complaint: EDUpperRespComplaint Time Seen by Provider: 05/04/18 02:42 Hx Obtained From: Patient Onset/Duration: Lasting Weeks - 1, Still Present Timing: Constant Current Severity: Mild Dyspnea At: Rest Aggrevating Factors: Nothing Alleviating Factors: Nothing Associated Signs & Symptoms: Negative - fever - Allergy/Home Medications Allergies/Adverse Reactions: Allergies Allergy/AdvReac Type Severity Reaction Status Date / Time propoxyphene Allergy See Comment Verified 05/01/18 07:28 [From Makayla] Home Medications: Home Medications Insulin ASPART (NF) [Novolog (NF)] 21 units SUBCUT AC 05/04/18 [History Confirmed 05/04/18] Insulin Glargine,Hum.rec.anlog [Lantus] 50 units SUBCUT DAILY 05/04/18 [History Confirmed 05/04/18] Suvorexant [Belsomra] 10 mg PO DAILY 05/04/18 [History Confirmed 05/06/18] PMH/Surg Hx/FS Hx/Imm Hx Previously Healthy: No Endocrine/Hematology History: Reports: Hx Diabetes Denies: Hx Thyroid Disease Cardiovascular History: Reports: Hx Hypertension Denies: Hx Hypercholesterolemia, Hx Pacemaker/ICD, Hx Peripheral Vascular Disease Respiratory History: Reports: Hx Chronic Obstructive Pulmonary Disease (COPD) - emphysema, Hx Sleep Apnea Denies: Hx Seasonal Allergies GI History: Reports: Hx Irritable Bowel History: Reports: Hx Renal Disease - STONES Musculoskeletal History: Denies: Hx Arthritis, Hx Rheumatoid Arthritis, Hx Osteoporosis, Hx Scoliosis Sensory History: Reports: Hx Hearing Problem - Some hearing loss Denies: Hx Cataracts, Hx Contacts or Glasses, Hx Glaucoma, Hx Hearing Aid Opthamlomology History: Denies: Hx Cataracts, Hx Contacts or Glasses, Hx Glaucoma Neurological History: Reports: Hx Migraine Denies: Hx Headaches, Hx Seizures, Hx Transient Ischemic Attacks (TIA), Other Neuro Impairments/Disorders Psychiatric History: Reports: Hx Eating Disorder, Hx Post Traumatic Stress Disorder, Other Psychiatric Issues/Disorders - ADD Denies: Hx Anxiety, Hx Depression, Hx Panic Disorder - Cancer History Cancer Type, Location and Year: ptsd,tbi,high cholesterol - Surgical History Surgery Procedure, Year, and Place: LASIK EYE SURGERY 2003 Infectious Disease History: No Infectious Disease History: Denies: Hx Clostridium Difficile, Hx Hepatitis, Hx Human Immunodeficiency Virus (HIV), Hx of Known/Suspected MRSA, Hx Shingles, Hx Tuberculosis, Hx Known/ Suspected VRE, Hx Known/Suspected VRSA, History Other Infectious Disease, Traveled Outside the [place] in Last 30 Days - Family History Known Family History: Positive: Hypertension, Other - Cancer - Social History Alcohol Use: None Hx Substance Use: No Substance Use Type: Reports: None Hx Tobacco Use: Yes Smoking Status (MU): Heavy Every Day Tobacco Smoker Type: Cigarettes Amount Used/How Often: 1 pack a day Review of Systems Negative: Fever Eyes: Negative Negative: Photophobia ENT: Negative Positive: Chest Pain Positive: Shortness Of Breath, Cough Negative: Abdominal Pain, Vomiting, Diarrhea All Other Systems Reviewed And Are Negative: Yes Physical Exam - Summary Physical Exam Summary: General: This is a well-developed, well-nourished white male lying on the stretcher in no apparent distress. The patient does not appear ill or toxic. Vital signs are notable for mild tachycardia and mild hypoxemia. HEENT:Extraocular movements are intact. Conjunctiva are normal without pallor. Pharynx is clear without exudate or swelling. Dentition is unremarkable. There is no sign of head trauma. Neck: Supple, no adenopathy noted. Lungs: Lungs have diffuse wheezing and rhonchi. This is worse on the left.. There are no signs of respiratory distress at rest. Coronary: Peripheral perfusion is good. Heart sounds are regular, a normal S1 and S2 were auscultated. There is no gallop rhythm, nor any pathological sounded murmurs. Abdomen: The abdomen appears normal and is moderately obese. Normoactive bowel sounds are present. On palpation, there is no significant tenderness, nor any guarding or rebound. There is no hepatosplenomegaly, nor any masses. Genitourinary: Deferred Back: Good range of motion is observed. There are no surface abnormalities nor any scoliosis. Extremities: Good range of motion was observed in all 4 extremities. There is no sign of any trauma to the extremities. Neurologic: The patient is awake and alert, speech is fluent in conversation is appropriate. There are no focal motor abnormalities. Cranial nerves are grossly intact. Deep tendon reflexes are 2+ and symmetric. There is no ataxia observed. Psychiatric. The patients affect is felt to be normal and appropriate. There is no sign of any hallucinations or delusions, or any other signs of psychosis. Triage Information Reviewed: Yes Vital Signs On Initial Exam: Initial Vitals Temp Pulse Resp BP Pulse Ox 36.9 C 100 24 158/92 91 05/04/18 02:33 05/04/18 02:33 05/04/18 02:33 05/04/18 02:33 05/04/18 02:33 Vital Signs Reviewed: Yes Diagnostics - Vital Signs Vital Signs Temp Pulse Resp BP Pulse Ox 05/04/18 02:33 36.9 C 100 24 158/92 91 - Laboratory Result Diagrams: 05/06/18 05:55 05/06/18 05:55 Lab Statement: Any lab studies that have been ordered have been reviewed, and results considered in the medical decision making process. - Radiology CXR Xray Interpretation: No Acute Changes Radiology Interpretation Completed By: ED Physician - EKG 0243 Cardiac Rate: NL EKG Rhythm: Sinus Rhythm - 97 BPM EKG Interpretation: NSR (97 BPM), LAD Course/Dx - Diagnoses Provider Diagnoses: COPD exacerbation - Physician Notifications Discussed Care of Patient With: Renata Howell - Hospitalist Time Discussed With Above Provider: 04:53 - We discussed patient care with Dr. Howell and she agreed to admit the patient. Discharge - Sign-Out/Discharge Documenting (check all that apply): Patient Departure - Discharge Plan Condition: Stable Disposition: ADMITTED TO [facility] - Billing Disposition and Condition Condition: STABLE Disposition: Admitted to [facility] - Attestation Statements Document Initiated by Scribe: Yes Documenting Scribe: Blayne Chacko Provider For Whom Scribe is Documenting (Include Credential): Ferny Olivarse MD Scribdiamante Attestation: Blayne Merrill scribed for Ferny Olivares MD on 05/06/18 at 1324. Scribe Documentation Reviewed: Yes Provider Attestation: The documentation as recorded by the [email or web address] accurately reflects the service I personally performed and the decisions made by me, Ferny Olivares MD
[2018-05-04 03:14] LABS: ABS Basophils 0.1 10^3/ul (0-0.2); ABS Eosinophils 0.1 10^3/ul (0-0.6); ABS Lymphocytes 2.1 10^3/ul (1.0-4.8); ABS Monocytes 0.9 10^3/ul (0-0.8); ABS Neutrophils 6.2 10^3/ul (1.5-7.7); ABS Nucleated RBC 0 10^3/ul; Hematocrit 42 % (42-52); Hemoglobin 14.5 g/dl (14.0-18.0); Lymphocyte % 22.2 % (25-47); Mean Corpuscular HGB Conc 34 g/dl (31-36); Mean Corpuscular Hemoglobin 30 pg (27-31); Mean Corpuscular Volume 89 fL (80-94); Nucleated Red Blood Cells % 0.1; Platelet Count 205 10^3/ul (150-450); Red Blood Count 4.78 10^6/ul (4.00-5.40); Red Cell Distribution Width 15 % (10.5-15); White Blood Count 9.3 10^3/ul (3.5-10.8)
[2018-05-04 03:31] LABS: EGFR Non-African American 85.1 (>60)
[2018-05-04] MEDS ORDERED: Al Hydrox/Mg Hydrox/Simet LIQ* 30 ML UDC PO PRN (05:38)
[2018-05-04] MEDS ORDERED: Acetaminophen TAB* 325 MG PO PRN (05:38)
[2018-05-04] MEDS ORDERED: Dextrose 50% Syringe 50 ML* 25 GM/50 ML SYRINGE IV PUSH PRN ×2 (05:43→12:14)
[2018-05-04] MEDS ORDERED: methylPREDNISolone SOD 40 MG* 1 ML VIAL IM SCH (06:00)
[2018-05-04] MEDS: Azithromycin IV(*) 250 MG in NS 0.9% 250 ML* 250 ML IVPB SCH (06:47)
[2018-05-04] MEDS ORDERED: ALPRAZolam TAB* 0.5 MG PO ONE (07:24)
[2018-05-04] MEDS: Enoxaparin(*) 40 MG/0.4 ML SYR SUBCUT SCH (07:54)
[2018-05-04] MEDS: Hydrochlorothiazide TAB* 25 MG PO SCH (07:55)
[2018-05-04] MEDS: Lisinopril TAB* 10 MG PO SCH (07:55)
[2018-05-04] MEDS: FENOFIBRIC ACID PO SCH (07:56)
[2018-05-04] MEDS: Insulin LISPRO* 1 UNITS UNIT SUBCUT SCH ×4 (07:56→20:58)
[2018-05-04] MEDS: Albuterol/Ipratropium NEB.SOL* Albuterol 2.5 MG/Ipratropium 0.5 MG 3 ML INH PRN ×2 (08:03→19:43)
--- NOTE | 2018-05-04 08:29 | RAD ---
HISTORY: cough,dyspnea COMPARISONS: May 01, 2018 VIEWS: 4: Frontal dual-energy and lateral views of the chest. FINDINGS: CARDIOMEDIASTINAL SILHOUETTE: The cardiomediastinal silhouette is normal. NOA: The noa are normal. PLEURA: The costophrenic angles are sharp. No pleural abnormalities are noted. LUNG PARENCHYMA: The lungs are clear. ABDOMEN: The upper abdomen is clear. There is no subphrenic gas. BONES AND SOFT TISSUES: No bone or soft tissue abnormalities are noted. OTHER: None. IMPRESSION: NO ACTIVE CARDIOPULMONARY DISEASE. R1
--- NOTE | 2018-05-04 08:52 | HP ---
HISTORY AND PHYSICAL: DATE OF ADMISSION: 05/04/18 TIME OF ADMISSION: 5:30 a.m. PRIMARY CARE PHYSICIAN: Astrid Rasmussen MD CHIEF COMPLAINT: Shortness of breath. HISTORY OF PRESENT ILLNESS: This is a 57-year-old man with history of COPD/emphysema, who presents w ith a few weeks of shortness of breath and dyspnea on exertion. 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 He has not had any sore throat, runny nose, s neezing, but thinks he may have had some subjective fevers. He has a cough, but states he always has a cough. He usually has sputum at baseline and at this time his cough is dry. He complains of whee zing and inability to sleep due to persistent cough and shortness of breath. Every time he tries to sleep he feels his chest rattling. He has a nebulizer at home, but he has not tried to use it becaus e when he tried to use it before, his symptoms got worse. He is still smoking cigarettes, but states he is quitting right now. He has no chest pain, palpitations, or orthopnea. He went to urgent care on 05/01/18 and was given azithromycin and prednisone which he filled and started to take, but he co ntinued to feel worse, so he came to the emergency department today. PAST MEDICAL HISTORY: 1. Type 2 diabetes. 2. Pancreatitis due to hypertriglyceridemia. 3. Hypertension. 4. GERD. 5. PTSD. 6. COPD. 7. TBI in 2004. PAST SURGICAL HISTORY: None. ALLERGIES: None. FAMILY HISTORY: His father of leukemia and his mom of small cell lung cancer. SOCIAL HISTORY: He has smoked 1 pack per day of cigarettes for the past 44 years. He does not use al cohol or any other drugs. 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 He also was in the [employer] and went to [place] where he thinks he had some environmental exposures. REVIEW OF SYSTEMS: As per the HPI. PHYSICAL EXAMINATION GENERAL: Alert obese man in no distress. He is uncomfortable and coughs frequently throughout my ex am. VITAL SIGNS: Temperature 98.4, heart rate 99, respiratory rate 20, pulse ox 88% on room air, blood p ressure 165/89. HEENT: Pupils equal, round, and reactive to light. Oral mucosa is moist with no pharyngeal exudates . NECK: No JVP. No cervical adenopathy. Notable upper airway sounds transmitted to the lower airways . LUNGS: Expiratory wheezes and a prolonged expiratory phase. HEART: Regular rate and rhythm. No murmurs. ABDOMEN: Soft, obese, nontender, nondistended. EXTREMITIES: No edema. No rashes. No ulcers. LABORATORY DATA: Chest x-ray: No infiltrates, no effusions. EKG: Normal sinus rhythm, left axis, no ST or T wave changes. QRS is 115. ASSESSMENT AND PLAN: This is a 57-year-old man with history of emphysema, ongoing tobacco abuse, pre senting with shortness of breath for a few weeks. 1. Chronic obstructive pulmonary disease exacerbation. Admit to observation for IV steroids, contin uation of azithromycin, and standing nebulizers. He has been diagnosed by spirometry and appears to be on a good home regimen for chronic obstructive pulmonary disease. He does have a nebulizer, so he should be able to be transitioned to p.o. meds quickly. I see no localizing source of infection or inciting upper respiratory infection. I do not see a utility in getting sputum cultures at this time . 2. Type 2 diabetes. Continue Lantus and add a.c. and h.s. fingersticks and correction lispro. 3. Pancreatitis due to hypertriglyceridemia. Continue fenofibrate and atorvastatin. 4. Hypertension. Continue lisinopril and HCTZ. 5. DVT prophylaxis. Lovenox. 6. Diet. Consistent carb. 7. Full code. [id number]/[facility] #: [id number]
[2018-05-04] MEDS ORDERED: Insulin GLARGINE(*) 1 UNITS UNIT SUBCUT SCH (09:00)
[2018-05-04] MEDS: methylPREDNISolone SOD 40 MG* 1 ML VIAL IM SCH ×2 (10:56→17:54)
[2018-05-04] MEDS ORDERED: Mouth Piece, Nicotine* 1 EACH CARTRIDGE INH PRN ×2 (11:28)
[2018-05-04] MEDS ORDERED: Nicotine Inhaler* 10 MG AMP INH PRN (11:28)
[2018-05-04] MEDS ORDERED: Melatonin 3 MG TAB PO PRN (11:29)
[2018-05-04] MEDS ORDERED: Insulin LISPRO* 1 UNITS UNIT SUBCUT ONE (12:14)
[2018-05-04] MEDS: Nicotine PATCH 21 MG/24 HR* PATCH TRANSDERM SCH (12:46)
--- NOTE | 2018-05-04 15:37 | PN ---
Subjective Date of Service: 05/04/18 Interval History: Patient was seen and examined at bedside. Reports doing much better since last night. Breathing with ease, denies chest pain, wheezing or SOB. Eating well, had vanilla wafers and a snicker bar on his bed, despite elevated blood glucose this AM. He tells me he usually runs around 250 for blood glucose checks at home. Last HgA1c checked recently was 12.1 per patient. He continues to smoke 1 ppd, tried Chantix in the past with no luck. Still has some productive cough, but denies dyspnea at rest or orthopnea. Family History: Unchanged from Admission Social History: Unchanged from Admission Past Medical History: Unchanged from Admission Objective Active Medications: Acetaminophen (Tylenol Tab*) 650 mg PO Q4H PRN PRN Reason: FEVER/PAIN Al Hydrox/Mg Hydrox/Simethicone (Maalox Plus*) 30 ml PO Q6H PRN PRN Reason: INDIGESTION Albuterol/Ipratropium (Duoneb (Albuterol 2.5 Mg/Ipratropium 0.5 Mg)) 1 neb INH Q4H PRN PRN Reason: SOB/WHEEZING Last Admin: 05/04/18 08:03 Dose: 1 neb Atorvastatin Calcium (Lipitor*) 10 mg PO 2100 YVETTE Device (Nicotine Mouth Piece*) 1 each INH .USE WITH NICOTROL PRN PRN Reason: CRAVING Device (Nicotine Mouth Piece*) 1 each INH .USE WITH NICOTROL PRN PRN Reason: CRAVING Dextrose (D50w Syringe 50 Ml*) 12.5 gm IV PUSH .FOR FS < 60 - SS PRN PRN Reason: FS < 60 Enoxaparin Sodium (Lovenox(*)) 40 mg SUBCUT Q24H [facility] Last Admin: 05/04/18 07:54 Dose: 40 mg Guaifenesin (Mucinex*) 600 mg PO BID [facility] Hydrochlorothiazide (Hydrodiuril Tab*) 12.5 mg PO DAILY [facility] Last Admin: 05/04/18 07:55 Dose: 12.5 mg Azithromycin 250 mg/ Sodium (Chloride) 250 mls @ 250 mls/hr IVPB Q24H [facility] Last Admin: 05/04/18 06:47 Dose: 250 mls/hr Insulin Glargine (Lantus(*)) 15 units SUBCUT Q24H [facility] Last Admin: 05/04/18 07:56 Dose: 15 unit Insulin Human Lispro (Humalog*) 0 units SUBCUT ACHS [facility]; Protocol Last Admin: 05/04/18 12:40 Dose: Not Given Lisinopril (Prinivil Tab*) 10 mg PO DAILY [facility] Last Admin: 05/04/18 07:55 Dose: 10 mg Melatonin (Melatonin) 3 mg PO BEDTIME PRN; Protocol PRN Reason: SLEEP Methylprednisolone Sodium Succinate (Solu-Medrol 40 Mg) 40 mg IM 0200,1000, 1800 [facility] Last Admin: 05/04/18 10:56 Dose: 40 mg Nicotine (Nicotine Inhaler*) 10 mg INH Q2H PRN PRN Reason: CRAVING Nicotine (Nicotine Patch 21 Mg/24 Hr*) 1 patch TRANSDERM DAILY [facility] Last Admin: 05/04/18 12:46 Dose: 1 patch Nf Med Fenofibric Acid (Nf) 145 Mg Capsule.Dr 1 dose PO DAILY [facility] Last Admin: 05/04/18 07:56 Dose: Not Given Vital Signs - 8 hr 05/04/18 05/04/18 05/04/18 07:54 08:00 08:15 Temperature Pulse Rate 98 93 Respiratory 20 21 97 Rate Blood Pressure (mmHg) O2 Sat by Pulse 95 20 Oximetry 05/04/18 05/04/18 10:58 11:34 Temperature 97.9 F Pulse Rate 97 Respiratory 20 21 Rate Blood Pressure 160/83 (mmHg) O2 Sat by Pulse 93 Oximetry Oxygen Devices in Use Now: Nasal Cannula Appearance: Morbidly obese male, appears comfortable and in NAD Eyes: No Scleral Icterus, PERRLA Ears/Nose/Mouth/Throat: Clear Oropharnyx, Mucous Membranes Moist Neck: NL Appearance and Movements; NL JVP, Trachea Midline Respiratory: Symmetrical Chest Expansion and Respiratory Effort, - - Lung sounds with bibasilar wheezing noted, minimal rhonchi. Cardiovascular: NL Sounds; No Murmurs; No JVD, RRR Abdominal: NL Sounds; No Tenderness; No Distention Extremities: No Edema Neurological: Alert and Oriented x 3 Nutrition: Taking PO's Result Diagrams: 05/04/18 03:02 05/04/18 03:02 Additional Lab and Data: . Microbiology and Other Data: . Diagnostic Imaging: .Patient Name: ANGEL CHU Medical Record#: [id number] Ordering Physician: Ferny Olivares MD Acct.#: [id number] : 1960 Age: 57 Sex: M Location: [address] [place] [address] - MEDICAL Exam Date: 05/04/18242 ADM Status: ADM Mirtha Order Information: CHEST PA & LAT 2 VWS Accession Number: [id number] CPT: 97431 HISTORY: cough,dyspnea COMPARISONS: May 01, 2018 IMPRESSION: NO ACTIVE CARDIOPULMONARY DISEASE. R1 <Electronically signed by Luigi Milligan MD in OV> 05/04/18825 EKG Data: . Assess/Plan/Problems-Billing Assessment: A 57 y/o male with history of emphysema and long standing tobacco abuse, presented to ED with worsening shortness or breath, who was admitted for COPD exacerbations. - Patient Problems (1) COPD exacerbation Current Visit: Yes Status: Acute Comment: - Improving clinically since admission - Continue neb treatment, prednisone - Supplemental oxygen, to titrate as tolerated - Continue Azithromycin (2) Diabetes Current Visit: No Status: Acute Comment: - Continue Lantus and Lispro coverage per sliding scale - Patient non-compliant in hospital, likely non-adherent to meds at home. Candy bars were present at bedside, advised to stop eating them for better glycemic control. (3) HTN (hypertension) Current Visit: No Status: Acute Comment: - Continue Lisinopril and HCTZ (4) HLD (hyperlipidemia) Current Visit: Yes Status: Acute Comment: - Hx pancreatitis due to markedly elevated triglycerides - Continue statin and fenofibrate (5) Tobacco abuse Current Visit: Yes Status: Acute Comment: - Nicotine patch and inhaler provided to control cravings (6) DVT prophylaxis Current Visit: No Status: Acute Comment: - SubQ Lovenox (7) Full code status Current Visit: No Status: Acute Status and Disposition: Inpatient. Anticipate discharge when medically stable.
[2018-05-04] MEDS ORDERED: Insulin GLARGINE(*) 1 UNITS UNIT SUBCUT ONE (18:40)
[2018-05-04] MEDS: Suvorexant (NF) 20 MG TAB PO PRN (20:49)
[2018-05-04] MEDS: guaiFENesin ER TAB 600 MG PO SCH (20:49)
[2018-05-04] MEDS: Atorvastatin* 10 MG TAB PO SCH (20:49)
[2018-05-04] MEDS: Codeine TAB* 15 MG PO PRN (23:06)
[2018-05-05] MEDS: methylPREDNISolone SOD 40 MG* 1 ML VIAL IM SCH (01:46)
[2018-05-05] MEDS: Codeine TAB* 15 MG PO PRN ×3 (05:56→21:16)
[2018-05-05] MEDS: Enoxaparin(*) 40 MG/0.4 ML SYR SUBCUT SCH (05:57)
[2018-05-05] MEDS: Azithromycin IV(*) 250 MG in NS 0.9% 250 ML* 250 ML IVPB SCH (05:57)
[2018-05-05] MEDS: Albuterol/Ipratropium NEB.SOL* Albuterol 2.5 MG/Ipratropium 0.5 MG 3 ML INH PRN ×3 (06:11→23:31)
--- NOTE | 2018-05-05 08:42 | PN ---
Subjective Date of Service: 05/05/18 Interval History: Patient reports he feels much better this morning but continues to have a cough and some wheezing. O2 sat 85% on RA. He reports that at home is noirmal O2 sat 91%. He continues to smoke but reports today he is interested in quitting. He denies fever/chills. Denies SOB. Continues to have mild sputum production - reporting white/clear sputum Family History: Unchanged from Admission Social History: Unchanged from Admission Past Medical History: Unchanged from Admission Objective Active Medications: Acetaminophen (Tylenol Tab*) 650 mg PO Q4H PRN PRN Reason: FEVER/PAIN Al Hydrox/Mg Hydrox/Simethicone (Maalox Plus*) 30 ml PO Q6H PRN PRN Reason: INDIGESTION Albuterol/Ipratropium (Duoneb (Albuterol 2.5 Mg/Ipratropium 0.5 Mg)) 1 neb INH Q4H PRN PRN Reason: SOB/WHEEZING Last Admin: 05/05/18 06:11 Dose: 1 neb Atorvastatin Calcium (Lipitor*) 10 mg PO 2100 [facility] Last Admin: 05/04/18 20:49 Dose: 10 mg Codeine Sulfate (Codeine Tab*) 15 mg PO Q6H PRN PRN Reason: cough Last Admin: 05/05/18 05:56 Dose: 15 mg Device (Nicotine Mouth Piece*) 1 each INH .USE WITH NICOTROL PRN PRN Reason: CRAVING Device (Nicotine Mouth Piece*) 1 each INH .USE WITH NICOTROL PRN PRN Reason: CRAVING Dextrose (D50w Syringe 50 Ml*) 12.5 gm IV PUSH .FOR FS < 60 - SS PRN PRN Reason: FS < 60 Enoxaparin Sodium (Lovenox(*)) 40 mg SUBCUT Q24H [facility] Last Admin: 05/05/18 05:57 Dose: 40 mg Guaifenesin (Mucinex*) 600 mg PO BID [facility] Last Admin: 05/04/18 20:49 Dose: 600 mg Hydrochlorothiazide (Hydrodiuril Tab*) 12.5 mg PO DAILY [facility] Last Admin: 05/04/18 07:55 Dose: 12.5 mg Azithromycin 250 mg/ Sodium (Chloride) 250 mls @ 250 mls/hr IVPB Q24H [facility] Last Admin: 05/05/18 05:57 Dose: 250 mls/hr Insulin Glargine (Lantus(*)) 45 units SUBCUT Q24H [facility] Insulin Human Lispro (Humalog*) 0 units SUBCUT ACHS [facility]; Protocol Last Admin: 05/04/18 20:58 Dose: 25 units Lisinopril (Prinivil Tab*) 10 mg PO DAILY [facility] Last Admin: 05/04/18 07:55 Dose: 10 mg Melatonin (Melatonin) 3 mg PO BEDTIME PRN; Protocol PRN Reason: SLEEP Nicotine (Nicotine Inhaler*) 10 mg INH Q2H PRN PRN Reason: CRAVING Nicotine (Nicotine Patch 21 Mg/24 Hr*) 1 patch TRANSDERM DAILY [facility] Last Admin: 05/04/18 12:46 Dose: 1 patch Nf Med Fenofibric Acid (Nf) 145 Mg Capsule.Dr 1 dose PO DAILY [facility] Last Admin: 05/04/18 07:56 Dose: Not Given Prednisone (Deltasone Tab*) 40 mg PO DAILY [facility] Suvorexant (Belsomra (Nf)) 20 mg PO BEDTIME PRN PRN Reason: SLEEP Last Admin: 05/04/18 20:49 Dose: 20 mg Vital Signs - 8 hr 05/05/18 05/05/18 05/05/18 02:29 03:21 05:56 Temperature 96.8 F Pulse Rate 93 Respiratory 20 17 18 Rate Blood Pressure 151/83 (mmHg) O2 Sat by Pulse 88 Oximetry 05/05/18 05/05/18 06:12 07:34 Temperature 97.5 F Pulse Rate 96 98 Respiratory 20 18 Rate Blood Pressure 148/81 (mmHg) O2 Sat by Pulse 99 92 Oximetry Oxygen Devices in Use Now: Nasal Cannula Appearance: obese 57 yo male A+O x3 in NAD Eyes: PERRLA Ears/Nose/Mouth/Throat: NL Teeth, Lips, Gums, Mucous Membranes Moist Respiratory: Symmetrical Chest Expansion and Respiratory Effort, - - diminished b/l Cardiovascular: NL Sounds; No Murmurs; No JVD, RRR, No Edema Abdominal: NL Sounds; No Tenderness; No Distention, - - obese Extremities: No Edema, No Clubbing, Cyanosis Skin: No Rash or Ulcers, No Nodules or Sclerosis Neurological: Alert and Oriented x 3, NL Muscle Strength and Tone Lines/Tubes/Other Access: Clean, Dry and Intact Peripheral IV Nutrition: Taking PO's Result Diagrams: 05/04/18 03:02 05/04/18 03:02 Additional Lab and Data: . Microbiology and Other Data: . Diagnostic Imaging: .Patient Name: ANGEL CHU Medical Record#: [id number] Ordering Physician: Ferny Olivares MD Acct.#: [id number] : 1960 Age: 57 Sex: M Location: [address] [place] [address] - MEDICAL Exam Date: 05/04/18 024 ADM Status: ADM Mirtha Order Information: CHEST PA & LAT 2 VWS Accession Number: [id number] CPT: 75097 HISTORY: cough,dyspnea COMPARISONS: May 01, 2018 IMPRESSION: NO ACTIVE CARDIOPULMONARY DISEASE. R1 <Electronically signed by Luigi Milligan MD in OV> 05/04/18 08 EKG Data: . Assess/Plan/Problems-Billing Assessment: A 57 y/o male with history of emphysema and long standing tobacco abuse, presented to ED with worsening shortness or breath, who was admitted for COPD exacerbation. - Patient Problems (1) COPD exacerbation Comment: - Improving clinically since admission but to be hypoxic on room air. - Continue neb treatment, change solumedrol to po prednisone - Continue mucinex - Supplemental oxygen prn - Continue Azithromycin (2) Diabetes Comment: - Continue Lantus and Lispro coverage per sliding scale - adjusted last evening for high FSBGs - continue to monitor. - Patient non-compliant in hospital, likely non-adherent to meds at home. Candy bars were present at bedside, advised to stop eating them for better glycemic control. - refer pt to [facility] at discharge - pt is interested in diet changes (3) HLD (hyperlipidemia) Comment: - Hx pancreatitis due to markedly elevated triglycerides - Continue statin and fenofibrate (4) Tobacco abuse Comment: - Nicotine patch and inhaler provided to control cravings (5) GERD (gastroesophageal reflux disease) Comment: - Continue PPI (6) Hypertension Comment: lisinopril/HCTZ (7) DVT prophylaxis Comment: - SubQ Lovenox (8) Full code status Status and Disposition: Inpatient. Anticipate discharge when medically stable - due to low O2 sat overnight and hyperglycemia - plan to continue inpatient status. Potential DC tomorrow if stable.
[2018-05-05] MEDS: Nicotine PATCH 21 MG/24 HR* PATCH TRANSDERM SCH (08:52)
[2018-05-05] MEDS: Lisinopril TAB* 10 MG PO SCH (08:53)
[2018-05-05] MEDS: guaiFENesin ER TAB 600 MG PO SCH ×2 (08:53→21:15)
[2018-05-05] MEDS: Hydrochlorothiazide TAB* 25 MG PO SCH (08:53)
[2018-05-05] MEDS: Omeprazole CAP* 20 MG PO SCH ×2 (08:54→21:15)
[2018-05-05] MEDS: predniSONE TAB* 20 MG PO SCH (08:54)
[2018-05-05] MEDS: Insulin GLARGINE(*) 1 UNITS UNIT SUBCUT SCH (08:55)
[2018-05-05] MEDS: Insulin LISPRO* 1 UNITS UNIT SUBCUT SCH ×4 (08:55→21:30)
[2018-05-05] MEDS: FENOFIBRIC ACID PO SCH (08:56)
[2018-05-05] MEDS: Atorvastatin* 10 MG TAB PO SCH (21:15)
[2018-05-05] MEDS: Suvorexant (NF) 20 MG TAB PO PRN (21:16)
[2018-05-06] MEDS ORDERED: Codeine TAB* 15 MG PO ONE (02:00)
[2018-05-06] MEDS: Azithromycin IV(*) 250 MG in NS 0.9% 250 ML* 250 ML IVPB SCH (06:15)
[2018-05-06] MEDS: Enoxaparin(*) 40 MG/0.4 ML SYR SUBCUT SCH (06:16)
[2018-05-06 06:25] LABS: ABS Basophils 0 10^3/ul (0-0.2); ABS Eosinophils 0.1 10^3/ul (0-0.6); ABS Monocytes 0.8 10^3/ul (0-0.8); ABS Neutrophils 7.3 10^3/ul (1.5-7.7); ABS Nucleated RBC 0 10^3/ul; Eosinophil % 0.6 % (0-6); Hematocrit 41 % (42-52); Hemoglobin 13.9 g/dl (14.0-18.0); Lymphocyte % 20.1 % (25-47); Mean Corpuscular HGB Conc 34 g/dl (31-36); Mean Corpuscular Hemoglobin 30 pg (27-31); Mean Corpuscular Volume 89 fL (80-94); Nucleated Red Blood Cells % 0.1; Platelet Count 198 10^3/ul (150-450); Red Blood Count 4.62 10^6/ul (4.00-5.40); Red Cell Distribution Width 15 % (10.5-15); White Blood Count 10.2 10^3/ul (3.5-10.8)
[2018-05-06 06:44] LABS: EGFR Non-African American 71.5 (>60)
[2018-05-06] MEDS: Codeine TAB* 15 MG PO PRN ×3 (07:48→22:03)
[2018-05-06] MEDS: Lisinopril TAB* 10 MG PO SCH (07:48)
[2018-05-06] MEDS: guaiFENesin ER TAB 600 MG PO SCH ×2 (07:49→20:12)
[2018-05-06] MEDS: Nicotine PATCH 21 MG/24 HR* PATCH TRANSDERM SCH (07:49)
[2018-05-06] MEDS: predniSONE TAB* 20 MG PO SCH (07:49)
[2018-05-06] MEDS: Omeprazole CAP* 20 MG PO SCH ×2 (07:49→20:12)
[2018-05-06] MEDS: Hydrochlorothiazide TAB* 25 MG PO SCH (07:49)
[2018-05-06] MEDS: CMC: Fenofibrate(NF) 145 MG TAB PO SCH (07:50)
[2018-05-06] MEDS: Insulin LISPRO* 1 UNITS UNIT SUBCUT SCH ×3 (08:57→17:33)
[2018-05-06] MEDS: Insulin GLARGINE(*) 1 UNITS UNIT SUBCUT SCH (08:57)
[2018-05-06] MEDS: Albuterol/Ipratropium NEB.SOL* Albuterol 2.5 MG/Ipratropium 0.5 MG 3 ML INH PRN (09:33)
--- NOTE | 2018-05-06 12:39 | PN ---
Subjective Date of Service: 05/06/18 Interval History: patient reports he feels the same today - continues to have a harsh cough with "long coughing spells". he denies a lot of sputum production but feels that his lungs are "full of junk". He reports wheezing. He denies fever or chills. No N/V /D. He is concerned that he may develop pancreatitis as he reports last time he was put on prednisone he had uncontrolled FSBGs and has hx of high triglycerides- he reports that was prior to him being on insulin. he denies any abdominal pain currently. Family History: Unchanged from Admission Social History: Unchanged from Admission Past Medical History: Unchanged from Admission Objective Active Medications: Acetaminophen (Tylenol Tab*) 650 mg PO Q4H PRN PRN Reason: FEVER/PAIN Al Hydrox/Mg Hydrox/Simethicone (Maalox Plus*) 30 ml PO Q6H PRN PRN Reason: INDIGESTION Albuterol/Ipratropium (Duoneb (Albuterol 2.5 Mg/Ipratropium 0.5 Mg)) 1 neb INH [id number] AWAKE [facility] Atorvastatin Calcium (Lipitor*) 10 mg PO 2100 [facility] Last Admin: 05/05/18 21:15 Dose: 10 mg Azithromycin (Zithromax Tab*) 250 mg PO DAILY [facility] Codeine Sulfate (Codeine Tab*) 15 mg PO Q6H PRN PRN Reason: cough Last Admin: 05/06/18 07:48 Dose: 15 mg Device (Nicotine Mouth Piece*) 1 each INH .USE WITH NICOTROL PRN PRN Reason: CRAVING Device (Nicotine Mouth Piece*) 1 each INH .USE WITH NICOTROL PRN PRN Reason: CRAVING Device (Tiotropium Inhaler Device*) 1 each INH .USE w/ SPIRIVA CAPS [facility] Device (Tiotropium Inhaler Device*) 1 each .SEE ORDER .USE w/ SPIRIVA CAPS [facility] Dextrose (D50w Syringe 50 Ml*) 12.5 gm IV PUSH .FOR FS < 60 - SS PRN PRN Reason: FS < 60 Enoxaparin Sodium (Lovenox(*)) 40 mg SUBCUT Q24H [facility] Last Admin: 05/06/18 06:16 Dose: 40 mg Fenofibrate (Tricor(Nf)) 145 mg PO DAILY [facility] Last Admin: 05/06/18 07:50 Dose: 145 mg Guaifenesin (Mucinex*) 600 mg PO BID [facility] Last Admin: 05/06/18 07:49 Dose: 600 mg Hydrochlorothiazide (Hydrodiuril Tab*) 12.5 mg PO DAILY [facility] Last Admin: 05/06/18 07:49 Dose: 12.5 mg Insulin Glargine (Lantus(*)) 50 units SUBCUT Q24H [facility] Insulin Human Lispro (Humalog*) 21 units SUBCUT AC [facility] Lisinopril (Prinivil Tab*) 10 mg PO DAILY [facility] Last Admin: 05/06/18 07:48 Dose: 10 mg Melatonin (Melatonin) 3 mg PO BEDTIME PRN; Protocol PRN Reason: SLEEP Nicotine (Nicotine Inhaler*) 10 mg INH Q2H PRN PRN Reason: CRAVING Nicotine (Nicotine Patch 21 Mg/24 Hr*) 1 patch TRANSDERM DAILY [facility] Last Admin: 05/06/18 07:49 Dose: 1 patch Omeprazole (Prilosec Cap*) 20 mg PO BID [facility] Last Admin: 05/06/18 07:49 Dose: 20 mg Prednisone (Deltasone Tab*) 40 mg PO DAILY [facility] Last Admin: 05/06/18 07:49 Dose: 40 mg Suvorexant (Belsomra (Nf)) 20 mg PO BEDTIME PRN PRN Reason: SLEEP Last Admin: 05/05/18 21:16 Dose: 20 mg Tiotropium [place] (Spiriva Cap.Inh*) 1 cap INH DAILY [facility] Vital Signs - 8 hr 05/06/18 05/06/18 05/06/18 05:38 06:14 07:38 Temperature 98.1 F 97.6 F Pulse Rate 80 81 Respiratory 16 20 18 Rate Blood Pressure 165/81 153/82 (mmHg) O2 Sat by Pulse 91 92 Oximetry 05/06/18 05/06/18 05/06/18 07:42 07:48 07:56 Temperature Pulse Rate Respiratory 18 18 Rate Blood Pressure 142/70 (mmHg) O2 Sat by Pulse Oximetry 05/06/18 05/06/18 05/06/18 08:58 09:35 11:08 Temperature 98.2 F Pulse Rate 90 92 Respiratory 18 16 19 Rate Blood Pressure 148/77 (mmHg) O2 Sat by Pulse 93 90 Oximetry Oxygen Devices in Use Now: None Appearance: obese male A+Ox3 - note expiratory wheezing standing at bedside with mild sob with exertion Eyes: No Scleral Icterus, PERRLA Ears/Nose/Mouth/Throat: NL Teeth, Lips, Gums, Mucous Membranes Moist Neck: NL Appearance and Movements; NL JVP Respiratory: Symmetrical Chest Expansion and Respiratory Effort, - - expiratory wheezing noted bilateral upper lobes, rhonchi throughout Cardiovascular: NL Sounds; No Murmurs; No JVD, RRR, No Edema Abdominal: NL Sounds; No Tenderness; No Distention, - - obese Extremities: No Edema, No Clubbing, Cyanosis Skin: No Nodules or Sclerosis Neurological: Alert and Oriented x 3, NL Sensation, NL Gait, NL Muscle Strength and Tone Lines/Tubes/Other Access: Clean, Dry and Intact Peripheral IV Nutrition: Taking PO's Result Diagrams: 05/06/18 05:55 05/06/18 05:55 Additional Lab and Data: . Microbiology and Other Data: . Diagnostic Imaging: .Patient Name: ANGEL CHU Medical Record#: [id number] Ordering Physician: Ferny Olivares MD Acct.#: [id number] : 1960 Age: 57 Sex: M Location: [address] [place] [address] - MEDICAL Exam Date: 05/04/18 0243 ADM Status: ADM Mirtha Order Information: CHEST PA & LAT 2 VWS Accession Number: [id number] CPT: 91915 HISTORY: cough,dyspnea COMPARISONS: May 01, 2018 IMPRESSION: NO ACTIVE CARDIOPULMONARY DISEASE. R1 <Electronically signed by Luigi Milligan MD in OV> 05/04/18 0826 EKG Data: . Assess/Plan/Problems-Billing Assessment: A 57 y/o male with history of emphysema, long standing tobacco abuse, obesity, HTN, HLD, and insulin dependent DM2 presented to ED with worsening shortness or breath, who was admitted for COPD exacerbation. - Patient Problems (1) COPD exacerbation Comment: - Improving clinically since admission but continues to be hypoxic on room air requiring 2-3Ls. O2 sat with 2L on ambulation 88-90% - Continue neb treatment - schedule Q4 while awake. flutter valve - Prednisone - mucinex - Supplemental oxygen prn - Continue Azithromycin po - spiriva daily - smoking cessation - patient is interested in continue patch at discharge (2) Diabetes Comment: - Continue Lantus - increase to patients home dose of 50 units Qam. DC lispro sliding scale and start patients home regimen lispro 21 units with meals. Patient may require an adjustment due to steroid use. Continue FSBG ACHS. - Patient non-compliant in hospital, likely non-adherent to meds at home. Candy bars were present at bedside, advised to stop eating them for better glycemic control. - refer pt to [facility] at discharge - pt is interested in diet changes - Endocrine consult - concern for patients uncontrolled Dm - he also has high triglycerides and is high risk for a reoccurence of pancreatitis. (3) HLD (hyperlipidemia) Comment: - Hx pancreatitis due to markedly elevated triglycerides/uncontrolled Dm - Continue statin and fenofibrate (4) Tobacco abuse Comment: - Nicotine patch and inhaler provided to control cravings - smoking cessation (5) GERD (gastroesophageal reflux disease) Comment: - Continue PPI (6) Hypertension Comment: uncontrolled. lisinopril/HCTZ 10/12.5 mg home dose. Plan to increase lisinopril to 15 mg daily and give 5 mg po dose x 1 now. continue to monitor. (7) DVT prophylaxis Comment: - SubQ Lovenox (8) Full code status Status and Disposition: Inpatient. Anticipate discharge when medically stable - due to continue hypoxia/ wheezing and hyperglycemia - plan to continue inpatient status. Potential DC tomorrow if stable.
[2018-05-06] MEDS ORDERED: Lisinopril TAB* 5 MG PO ONE (12:46)
[2018-05-06] MEDS ORDERED: Spiriva Inhaler DEVICE* 1 EACH DEVICE SCH (13:00)
[2018-05-06] MEDS ORDERED: Spiriva Inhaler DEVICE* 1 EACH DEVICE INH SCH (13:00)
[2018-05-06] MEDS: Albuterol/Ipratropium NEB.SOL* Albuterol 2.5 MG/Ipratropium 0.5 MG 3 ML INH SCH ×3 (14:41→23:18)
--- NOTE | 2018-05-06 16:12 | CONSULT ---
Consult Consult: [facility] Inpatient Consult Note Date of Consult: 05/06/18 Reason for Consult: diabetes Reason for Admission: COPD ASSESSMENT: 57 yo M with T2DM and steroid-induced hyperglycemia in setting of COPD flare. Steroid-induced hyperglycemia typically occurs in the afternoon and should be addressed with insulin provision early in the day. Insulin resistance remains a problem for this patient and I suspect he is underdosing basal insulin with fasting hyperglycemia ~200. BG >350 in the afternoon likely represents combination of steroid effect and underdosing of bolus insulin. Recommend doses below as long as he remains on systemic steroid. As outpatient, insulin-sparing strategy with low-glycemic diet and possibly addition of SLGT2 inhibitor (Jardiance) may be helpful. PLAN: - one time catch-up dose of Humalog 12 units now for BG>350 at 17:00 [order placed] - increase Lantus to 60 units and continue at discharge - increase Humalog to 24 units with meals and continue as long as he remains on corticosteroid - 2-3 week follow-up with Dr. Gil SUBJECTIVE: 57 yo M with T2DM, active tobacco use, severe hypertriglyceridemia with pancreatitis and 1.6cm R adrenal nodule, now admitted for COPD flare. He had been in [place] until recently, when reports several weeks of worsening shortness of breath and dyspnea on exertion. No other URI symptoms, although he has a chronic cough. Outpatient azithromycin + prednisone did not improve his breathing in the days prior to admission. He notes that a neighbor developed similar respiratory symptoms. He was diagnosed with diabetes in ~2015 and started on metformin. He developed acute pancreatitis in September 2016, recurrent in June 2017 -- and was started on basal bolus insulin. He currently uses Lantus 50 and Novolog 21 TID, along with Trulicity. His A1c at Dr. Gil's office has been ~8%. He has reduced his milk intake, but does not follow a low-glycemic diet. He normally checks BG with a home monitor, but nursing staff has been unable to use home glucose monitor due to error messages. History of Present Illness: Past Medical History: 1. Type 2 diabetes. 2. Pancreatitis due to hypertriglyceridemia. 3. Hypertension. 4. GERD. 5. PTSD. 6. COPD. 7. TBI in 2004. Medications Prior to Admission: Lisinopril/HCTZ (NF) [Zestoretic 10/12.5(NF)] 1 tab PO DAILY 06/29/17 [ History Confirmed 05/04/18] Mirtazapine 45 mg PO DAILY 06/29/17 [History Confirmed 05/06/18] Omeprazole CAP* [Prilosec CAP* 20 MG] 20 mg PO BID 06/29/17 [History Confirmed 05/04/18] Fenofibrate(NF) [Tricor(NF)] 145 mg PO DAILY #30 tab 07/07/17 [Rx Confirmed ] Pen Needle, Diabetic [Pen Needle] 1 mis XX QID #120 unit 07/10/17 [Rx Confirmed 05/04/18] Albuterol HFA INHALER* [Ventolin HFA Inhaler*] 2 puff INH Q4H PRN #1 mdi [Rx Confirmed 05/04/18] Atorvastatin* [Lipitor 10 MG*] 10 mg PO 2100 05/01/18 [History Confirmed ] Azithromycin 500 mg PO DAILY #5 tab 05/01/18 [Rx Confirmed 05/04/18] Codeine Phosphate/Guaifenesin [Codeine-Guaifen 10-100 mg/5 ml] 5 - 10 ml PO Q6H PRN #150 ml MDD 40ML 05/01/18 [Rx Confirmed 05/06/18] Dulaglutide [Trulicity] 0.75 mg SQ WEEKLY 05/01/18 [History Confirmed 05/04/18] Eszopiclone [Lunesta] 1 mg PO QPM 05/01/18 [History Confirmed 05/06/18] Guaifenesin/Dextromethorphan [Robitussin Cough-Chest Dm Liq] 1 dose PO ONCE PRN 05/01/18 [History Confirmed 05/04/18] predniSONE TAB* [Deltasone TAB*] 50 mg PO DAILY #4 tab 05/01/18 [Rx Confirmed ] Insulin ASPART (NF) [Novolog (NF)] 21 units SUBCUT AC 05/04/18 [History Confirmed 05/04/18] Insulin Glargine,Hum.rec.anlog [Lantus] 50 units SUBCUT DAILY 05/04/18 [History Confirmed 05/04/18] Suvorexant [Belsomra] 10 mg PO DAILY 05/04/18 [History Confirmed 05/06/18] Inpatient Medications: Acetaminophen (Tylenol Tab*) 650 mg PO Q4H PRN PRN Reason: FEVER/PAIN Al Hydrox/Mg Hydrox/Simethicone (Maalox Plus*) 30 ml PO Q6H PRN PRN Reason: INDIGESTION Albuterol/Ipratropium (Duoneb (Albuterol 2.5 Mg/Ipratropium 0.5 Mg)) 1 neb INH [id number] AWAKE [facility] Last Admin: 05/06/18 14:41 Dose: 1 neb Atorvastatin Calcium (Lipitor*) 10 mg PO 2100 [facility] Last Admin: 05/05/18 21:15 Dose: 10 mg Azithromycin (Zithromax Tab*) 250 mg PO DAILY [facility] Codeine Sulfate (Codeine Tab*) 15 mg PO Q6H PRN PRN Reason: cough Last Admin: 05/06/18 15:29 Dose: 15 mg Device (Nicotine Mouth Piece*) 1 each INH .USE WITH NICOTROL PRN PRN Reason: CRAVING Device (Nicotine Mouth Piece*) 1 each INH .USE WITH NICOTROL PRN PRN Reason: CRAVING Device (Tiotropium Inhaler Device*) 1 each .SEE ORDER .USE w/ SPIRIVA CAPS [facility] Dextrose (D50w Syringe 50 Ml*) 12.5 gm IV PUSH .FOR FS < 60 - SS PRN PRN Reason: FS < 60 Enoxaparin Sodium (Lovenox(*)) 40 mg SUBCUT Q24H [facility] Last Admin: 05/06/18 06:16 Dose: 40 mg Fenofibrate (Tricor(Nf)) 145 mg PO DAILY [facility] Last Admin: 05/06/18 07:50 Dose: 145 mg Guaifenesin (Mucinex*) 600 mg PO BID [facility] Last Admin: 05/06/18 07:49 Dose: 600 mg Hydrochlorothiazide (Hydrodiuril Tab*) 12.5 mg PO DAILY [facility] Last Admin: 05/06/18 07:49 Dose: 12.5 mg Insulin Glargine (Lantus(*)) 50 units SUBCUT Q24H [facility] Insulin Human Lispro (Humalog*) 21 units SUBCUT AC [facility] Last Admin: 05/06/18 17:33 Dose: 21 units Lisinopril (Prinivil Tab*) 15 mg PO DAILY [facility] Melatonin (Melatonin) 3 mg PO BEDTIME PRN; Protocol PRN Reason: SLEEP Nicotine (Nicotine Inhaler*) 10 mg INH Q2H PRN PRN Reason: CRAVING Nicotine (Nicotine Patch 21 Mg/24 Hr*) 1 patch TRANSDERM DAILY [facility] Last Admin: 05/06/18 07:49 Dose: 1 patch Omeprazole (Prilosec Cap*) 20 mg PO BID [facility] Last Admin: 05/06/18 07:49 Dose: 20 mg Prednisone (Deltasone Tab*) 40 mg PO DAILY [facility] Last Admin: 05/06/18 07:49 Dose: 40 mg Suvorexant (Belsomra (Nf)) 20 mg PO BEDTIME PRN PRN Reason: SLEEP Last Admin: 05/05/18 21:16 Dose: 20 mg Tiotropium [place] (Spiriva Cap.Inh*) 1 cap INH DAILY [facility] Allergies/Intolerances: Darvocet Social History: Active smoker 1 PPD. Lives with . Retired from . Family History: COPD in father. Review of Systems: As above. In addition, he notes weight gain since diagnosis of diabetes. OBJECTIVE: Temp Pulse Resp BP Pulse Ox 98.5 F 91 19 149/84 92 05/06/18 15:40 05/06/18 15:40 05/06/18 15:40 05/06/18 15:40 05/06/18 15:40 General: alert, pleasant, oriented, no distress ENT: neck supple, no thyromegaly, no bruit is heard Chest: CTAB, no wheezing or crackles CV: RRR, no murmur Abdomen: soft, non-tender Extremities: no edema, distal pulses intact Skin: warm, dry, no rash Neuro: grossly intact motor/sensory in extremities Psych: restricted affect, pleasant Labs: Glucose Results 05/05/18 16:30 273 05/06/18 07:43 210 05/06/18 11:55 358 WBC 10.2 10^3/ul (3.5-10.8) 05/06/18 05:55 RBC 4.62 10^6/ul (4.00-5.40) 05/06/18 05:55 Hgb 13.9 g/dl (14.0-18.0) L 05/06/18 05:55 Hct 41 % (42-52) L 05/06/18 05:55 MCV 89 fL (80-94) 05/06/18 05:55 MCH 30 pg (27-31) 05/06/18 05:55 MCHC 34 g/dl (31-36) 05/06/18 05:55 RDW 15 % (10.5-15) 05/06/18 05:55 Plt Count 198 10^3/ul (150-450) 05/06/18 05:55 MPV 8.0 um3 (7.4-10.4) 05/06/18 05:55 Neut % (Auto) 71.6 % (38-83) 05/06/18 05:55 Lymph % (Auto) 20.1 % (25-47) L 05/06/18 05:55 Cottle % (Auto) 7.6 % (0-7) H 05/06/18 05:55 Eos % (Auto) 0.6 % (0-6) 05/06/18 05:55 Baso % (Auto) 0.1 % (0-2) 05/06/18 05:55 Absolute Neuts (auto) 7.3 10^3/ul (1.5-7.7) 05/06/18 05:55 Absolute Lymphs (auto) 2.0 10^3/ul (1.0-4.8) 05/06/18 05:55 Absolute Monos (auto) 0.8 10^3/ul (0-0.8) 05/06/18 05:55 Absolute Eos (auto) 0.1 10^3/ul (0-0.6) 05/06/18 05:55 Absolute Basos (auto) 0 10^3/ul (0-0.2) 05/06/18 05:55 Absolute Nucleated RBC 0 10^3/ul 05/06/18 05:55 Nucleated RBC % 0.1 05/06/18 05:55 Sodium 136 mmol/L (135-145) 05/06/18 05:55 Potassium 3.9 mmol/L (3.5-5.0) 05/06/18 05:55 Chloride 101 mmol/L (101-111) 05/06/18 05:55 Carbon Dioxide 28 mmol/L (22-32) 05/06/18 05:55 Anion Gap 7 mmol/L (2-11) 05/06/18 05:55 BUN 30 mg/dL (6-24) H 05/06/18 05:55 Creatinine 1.07 mg/dL (0.67-1.17) 05/06/18 05:55 Est GFR ( Amer) 86.5 (>60) 05/06/18 05:55 Est GFR (Non-Af Amer) 71.5 (>60) 05/06/18 05:55 BUN/Creatinine Ratio 28.0 (8-20) H 05/06/18 05:55 Glucose 358 mg/dL (70-100) H 05/06/18 11:18 POC Glucose (mg/dL) 210 mg/dL (70-100) H 05/06/18 07:30 Glucose Meter Confirm 273 mg/dL (70-100) H 05/05/18 17:15 Hemoglobin A1c 8.4 % (4.0-5.6) H 05/04/18 03:02 Lactic Acid 1.3 mmol/L (0.5-2.0) 05/04/18 03:02 Calcium 8.8 mg/dL (8.6-10.3) 05/06/18 05:55 Total Bilirubin 0.40 mg/dL (0.2-1.0) 05/04/18 03:02 AST TNP 05/04/18 03:02 ALT 46 U/L (7-52) 05/04/18 03:02 Alkaline Phosphatase 60 U/L (34-104) 05/04/18 03:02 Troponin I 0.01 ng/mL (<0.04) 05/04/18 03:02 Total Protein 6.5 g/dL (6.4-8.9) 05/04/18 03:02 Albumin 3.6 g/dL (3.2-5.2) 05/04/18 03:02 Globulin 2.9 g/dL (2-4) 05/04/18 03:02 Albumin/Globulin Ratio 1.2 (1-3) 05/04/18 03:02 Triglycerides 1235 mg/dL 05/05/18 20:02 Cholesterol 129 mg/dL 05/05/18 20:02 LDL Cholesterol mg/dL 05/05/18 20:02 LDL Cholesterol Direct 45 mg/dL 05/05/18 20:02 HDL Cholesterol 23.3 mg/dL 05/05/18 20:02
[2018-05-06] MEDS ORDERED: Insulin LISPRO* 1 UNITS UNIT SUBCUT ONE ×2 (18:14→23:40)
[2018-05-06] MEDS ORDERED: Dextrose 50% Syringe 50 ML* 25 GM/50 ML SYRINGE IV PUSH PRN (18:14)
[2018-05-06] MEDS: Atorvastatin* 10 MG TAB PO SCH (20:12)
[2018-05-06] MEDS: Lidocaine 2.5%/Prilocain 2.5%* 5 GM TUBE TOPICAL PRN (21:53)
[2018-05-06] MEDS: Suvorexant (NF) 20 MG TAB PO PRN (22:04)
[2018-05-07] MEDS: Albuterol/Ipratropium NEB.SOL* Albuterol 2.5 MG/Ipratropium 0.5 MG 3 ML INH SCH ×2 (03:19→06:19)
[2018-05-07] MEDS: Lidocaine 2.5%/Prilocain 2.5%* 5 GM TUBE TOPICAL PRN (06:13)
[2018-05-07] MEDS: Enoxaparin(*) 40 MG/0.4 ML SYR SUBCUT SCH (06:13)
[2018-05-07 07:19] VITALS: BP 137/75
[2018-05-07 07:27] LABS: Hematocrit 42 % (42-52); Hemoglobin 14.2 g/dl (14.0-18.0); Mean Corpuscular HGB Conc 34 g/dl (31-36); Mean Corpuscular Hemoglobin 30 pg (27-31); Mean Corpuscular Volume 90 fL (80-94); Mean Platelet Volume 8.1 um3 (7.4-10.4); Platelet Count 189 10^3/ul (150-450); Red Blood Count 4.72 10^6/ul (4.00-5.40); Red Cell Distribution Width 15 % (10.5-15); White Blood Count 7.9 10^3/ul (3.5-10.8)
[2018-05-07 07:28] LABS: ABS Basophils 0 10^3/ul (0-0.2); ABS Eosinophils 0.2 10^3/ul (0-0.6); ABS Lymphocytes 2.2 10^3/ul (1.0-4.8); ABS Monocytes 0.7 10^3/ul (0-0.8); ABS Neutrophils 4.8 10^3/ul (1.5-7.7); ABS Nucleated RBC 0 10^3/ul; Eosinophil % 2.2 % (0-6); Lymphocyte % 27.9 % (25-47); Nucleated Red Blood Cells % 0.1
[2018-05-07 07:43] LABS: EGFR Non-African American 79.1 (>60)
[2018-05-07] MEDS: Codeine TAB* 15 MG PO PRN (08:30)
[2018-05-07] MEDS: CMC: Fenofibrate(NF) 145 MG TAB PO SCH (08:30)
[2018-05-07] MEDS: predniSONE TAB* 20 MG PO SCH (08:31)
[2018-05-07] MEDS: Hydrochlorothiazide TAB* 25 MG PO SCH (08:31)
[2018-05-07] MEDS: guaiFENesin ER TAB 600 MG PO SCH (08:32)
[2018-05-07] MEDS: Nicotine PATCH 21 MG/24 HR* PATCH TRANSDERM SCH (08:32)
[2018-05-07] MEDS: Insulin LISPRO* 1 UNITS UNIT SUBCUT SCH (08:33)
[2018-05-07] MEDS: Omeprazole CAP* 20 MG PO SCH (08:34)
[2018-05-07] MEDS ORDERED: Lisinopril TAB* 10 MG PO SCH (09:00)
[2018-05-07] MEDS ORDERED: Azithromycin TAB* 250 MG PO SCH (09:00)
[2018-05-07] MEDS ORDERED: Tiotropium CAP.INH* CAP.INH/18 MCG (USE ORDER SET !) INH SCH (09:00)
[2018-05-07] MEDS ORDERED: Insulin GLARGINE(*) 1 UNITS UNIT SUBCUT SCH (09:00)
--- NOTE | 2018-05-07 09:45 | DCNOTE ---
Subjective Date of Service: 05/07/18 Interval History: Patient reports he feels better today. He is not requiring oxygen and ambulating maintaining O2 sats. He reports his cough and wheezing is still present but much better. No fevers or chills. Denies SOB. Reports he is very interested in losing weight and changing his diet. As well he plans to quit smoking. Reviewed discharge medications and plan with patient and . Family History: Unchanged from Admission Social History: Unchanged from Admission Past Medical History: Unchanged from Admission Objective Active Medications: Acetaminophen (Tylenol Tab*) 650 mg PO Q4H PRN PRN Reason: FEVER/PAIN Al Hydrox/Mg Hydrox/Simethicone (Maalox Plus*) 30 ml PO Q6H PRN PRN Reason: INDIGESTION Albuterol/Ipratropium (Duoneb (Albuterol 2.5 Mg/Ipratropium 0.5 Mg)) 1 neb INH [id number] AWAKE [facility] Atorvastatin Calcium (Lipitor*) 10 mg PO 2100 [facility] Last Admin: 05/06/18 20:12 Dose: 10 mg Azithromycin (Zithromax Tab*) 250 mg PO DAILY [facility] Last Admin: 05/07/18 08:32 Dose: 250 mg Codeine Sulfate (Codeine Tab*) 15 mg PO Q6H PRN PRN Reason: cough Last Admin: 05/07/18 08:30 Dose: 15 mg Device (Nicotine Mouth Piece*) 1 each INH .USE WITH NICOTROL PRN PRN Reason: CRAVING Device (Nicotine Mouth Piece*) 1 each INH .USE WITH NICOTROL PRN PRN Reason: CRAVING Device (Tiotropium Inhaler Device*) 1 each .SEE ORDER .USE w/ SPIRIVA CAPS [facility] Dextrose (D50w Syringe 50 Ml*) 12.5 gm IV PUSH .FOR FS < 60 - SS PRN PRN Reason: FS < 60 Enoxaparin Sodium (Lovenox(*)) 40 mg SUBCUT Q24H [facility] Last Admin: 05/07/18 06:13 Dose: 40 mg Fenofibrate (Tricor(Nf)) 145 mg PO DAILY [facility] Last Admin: 05/07/18 08:30 Dose: 145 mg Guaifenesin (Mucinex*) 600 mg PO BID [facility] Last Admin: 05/07/18 08:32 Dose: 600 mg Hydrochlorothiazide (Hydrodiuril Tab*) 12.5 mg PO DAILY [facility] Last Admin: 05/07/18 08:31 Dose: 12.5 mg Insulin Glargine (Lantus(*)) 50 units SUBCUT Q24H [facility] Last Admin: 05/07/18 08:33 Dose: 50 units Insulin Human Lispro (Humalog*) 21 units SUBCUT AC [facility] Last Admin: 05/07/18 08:33 Dose: 21 units Lidocaine/Prilocaine (Emla 5 Gm*) 1 applic TOPICAL .PRN PRN PRN Reason: BLOOD DRAW/IV STARTS Last Admin: 05/07/18 06:13 Dose: 1 applic Lisinopril (Prinivil Tab*) 15 mg PO DAILY [facility] Last Admin: 05/07/18 08:31 Dose: 15 mg Melatonin (Melatonin) 3 mg PO BEDTIME PRN; Protocol PRN Reason: SLEEP Nicotine (Nicotine Inhaler*) 10 mg INH Q2H PRN PRN Reason: CRAVING Nicotine (Nicotine Patch 21 Mg/24 Hr*) 1 patch TRANSDERM DAILY [facility] Last Admin: 05/07/18 08:32 Dose: 1 patch Omeprazole (Prilosec Cap*) 20 mg PO BID [facility] Last Admin: 05/07/18 08:34 Dose: 20 mg Prednisone (Deltasone Tab*) 40 mg PO DAILY [facility] Last Admin: 05/07/18 08:31 Dose: 40 mg Suvorexant (Belsomra (Nf)) 20 mg PO BEDTIME PRN PRN Reason: SLEEP Last Admin: 05/06/18 22:04 Dose: 20 mg Tiotropium [place] (Spiriva Cap.Inh*) 1 cap INH DAILY [facility] Last Admin: 05/07/18 07:47 Dose: 1 cap Vital Signs - 8 hr 05/07/18 05/07/18 05/07/18 02:37 02:48 06:21 Temperature 98.3 F Pulse Rate 73 73 Respiratory 18 20 16 Rate Blood Pressure 129/80 (mmHg) O2 Sat by Pulse 91 93 Oximetry 05/07/18 05/07/18 05/07/18 07:13 07:24 07:50 Temperature 96.6 F Pulse Rate 79 78 Respiratory 20 20 18 Rate Blood Pressure 137/75 (mmHg) O2 Sat by Pulse 90 91 Oximetry 05/07/18 08:30 Temperature Pulse Rate Respiratory 22 Rate Blood Pressure (mmHg) O2 Sat by Pulse Oximetry Oxygen Devices in Use Now: None Appearance: A+Ox3 obese male in NAD Eyes: No Scleral Icterus, PERRLA Ears/Nose/Mouth/Throat: NL Teeth, Lips, Gums, Mucous Membranes Moist Respiratory: Symmetrical Chest Expansion and Respiratory Effort, - - scattered course rhonchi - good aeration throughout Cardiovascular: NL Sounds; No Murmurs; No JVD, RRR, No Edema Abdominal: NL Sounds; No Tenderness; No Distention Extremities: No Edema, No Clubbing, Cyanosis Skin: No Rash or Ulcers, No Nodules or Sclerosis Neurological: Alert and Oriented x 3, NL Sensation, NL Muscle Strength and Tone Lines/Tubes/Other Access: Clean, Dry and Intact Peripheral IV Nutrition: Taking PO's Result Diagrams: 05/07/18 06:45 05/07/18 06:45 Additional Lab and Data: . Microbiology and Other Data: . Diagnostic Imaging: .Patient Name: ANGEL CHU Medical Record#: [id number] Ordering Physician: Ferny Olivares MD Acct.#: [id number] : 1960 Age: 57 Sex: M Location: [address] [place] [address] - MEDICAL Exam Date: 05/04/18 0243 ADM Status: ADM Mirtha Order Information: CHEST PA & LAT 2 VWS Accession Number: [id number] CPT: 32385 HISTORY: cough,dyspnea COMPARISONS: May 01, 2018 IMPRESSION: NO ACTIVE CARDIOPULMONARY DISEASE. R1 <Electronically signed by Luigi Milligan MD in OV> 05/04/18 0894 EKG Data: . Assess/Plan/Problems-Billing Assessment: A 57 y/o male with history of emphysema, long standing tobacco abuse, obesity, HTN, HLD, and insulin dependent DM2 presented to ED with worsening shortness or breath, who was admitted for COPD exacerbation. - Patient Problems (1) COPD exacerbation Comment: - Improving clinically - O2 sat 90% on RA and with ambulation. Per patient his baseline O2 is 90-93% - Pt to be set up with neb machine at home - Prednisone taper at discharge - mucinex - Supplemental oxygen prn - Continue Azithromycin po day 4/5 - start spiriva daily - smoking cessation - patient is interested in continue patch at discharge - referral to Dr. Stanton (2) Diabetes Comment: - APpreciate endocrine consult - recommended increasing Lantus 60 units daily ( home dose 50 units) and increase humalog to 24 units with meals as long as he is on cortocosteroids. - follow up with Dr. Gil in 2-3 weeks. - refer pt to [facility] at discharge - pt is interested in diet changes - Diet and weight loss counseling 20 minutes (3) HLD (hyperlipidemia) Comment: - Hx pancreatitis due to markedly elevated triglycerides/uncontrolled Dm - Continue statin and fenofibrate - trig on recheck are doen to 400 fastimg this am - Diet education (4) Tobacco abuse Comment: - Nicotine patch and inhaler provided to control cravings - smoking cessation (5) GERD (gastroesophageal reflux disease) Comment: - Continue PPI (6) Hypertension Comment: uncontrolled. lisinopril/HCTZ 10/12.5 mg home dose. Plan to increase lisinopril to 15 mg daily (7) DVT prophylaxis Comment: - SubQ Lovenox (8) Full code status Status and Disposition: Inpatient. DC to home today. Follow up with PCP tomorrow
[2018-05-07] MEDS ORDERED: Albuterol/Ipratropium NEB.SOL* Albuterol 2.5 MG/Ipratropium 0.5 MG 3 ML INH SCH (13:00)
--- NOTE | 2018-05-08 07:00 | DS ---
CC: Dr. Astrid Rasmussen * DISCHARGE SUMMARY: DATE OF ADMISSION: DATE OF DISCHARGE: 05/07/18 PROVIDER: Og Rodrigez NP ATTENDING PHYSICIAN: Dr. Akua Reid.* (DICTATED BY OG RODRIGEZ NP) PRIMARY CARE PROVIDER: Dr. Astrid Rasmussen. REFERRING TO: Dr. Stanton. COOK BARBECUE: Dr. Gil. DISCHARGE DIAGNOSES: 1. Chronic obstructive pulmonary disease exacerbation. 2. Uncontrolled diabetes. 3. Hypertension. 4. Tobacco abuse. SECONDARY DIAGNOSES: 1. Gastroesophageal reflux disease. 2. Posttraumatic stress disorder. 3. History of TBI in 2004. 4. History of pancreatitis, secondary to hypertriglyceridemia. HISTORY OF PRESENT ILLNESS AND HOSPITAL COURSE: Please see history and physical by Dr. Renata Howell for full admission details; but in summary, this is a 57-year- old male with a past medical history of COPD and current tobacco abuse and insulin- dependent diabetes who presented to the emergency department on 05/04/18 with complaints of a few weeks with shortness of breath and dyspnea with exertion. He also believed he came in contact with a sick neighbor with an upper respiratory infection and feels that several days after this, he developed worsening shortness of breath and a cough. He reports the cough and sputum production as baseline; however, he reported no sputum production at time of admission; however, he developed increased sputum production throughout this hospitalization. He was admitted to the hospital service for COPD exacerbation. He was started on IV Solu- Medrol, azithromycin, and standing nebulizers. He was found to be hypoxic requiring 2 to 3 L of oxygen via nasal cannula to maintain O2 sats around 93% to 94%. Per the patient, he reports his baseline as between 90 and 94. He was tested off oxygen and ambulated around the unit yesterday and his O2 sats were 86% to 88%. He continued further hospitalization with DuoNeb round the clock and continuation of now on oral prednisone. Overnight, he has greatly improved and is off oxygen, ambulating, maintaining O2 sats around 92% on room air. The patient will be sent home on a prednisone taper and will finish a course of azithromycin. He has also been started on Spiriva. He will be sent home with albuterol p.r.n. inhaler. As well, he has been set up with a nebulizing machine for DuoNeb use. The patient is interested in quitting smoking at this time and has been sent home with a prescription for nicotine patches. He will need a refill in 2 weeks. The patient did receive smoking cessation throughout hospitalization and at this point the patient plans to quit smoking. In regard to the patient's blood pressures, throughout hospitalization he has trended on the higher side of systolic blood pressures in the 140s to 160s. His lisinopril was increased from 10 mg daily to 15 mg daily, and he is continued on the hydrochlorothiazide. In regard to the patient's insulin-dependent type 2 diabetes, his blood sugars initially were uncontrolled, 200 to 300 range. Most likely, it is secondary to the steroid use, but per patient his normal blood sugars run in the 200s frequently. His hemoglobin A1c is 8.4%. He was seen in consultation by oil pump station operator chief, Dr. Lionel Wang, who recommended increasing the patient's Lantus from 50 units daily to 60 units daily and increasing his mealtime Humalog from 21 units t.i.d. to 24 units t.i.d., which has been done on discharge. The patient was instructed to monitor his blood sugars closely as this may need to be decreased when he is off the prednisone taper. However, the patient seems quite resistant at his baseline and per his report of his ____ __ normal blood sugars, may require higher-dose insulin as this time. He was recommended he follow up with his oil pump station operator chief, Dr. Gil, in 2 to 3 weeks. As well, the patient was counseled with weight loss and healthy diet in which the patient is very interested in trying to lose some weight and change his diet to improve his multiple comorbidities. The patient was encouraged to see a qualitative field coordinator as an outpatient and does not want to go back to [facility] and may find somebody privately. The patient had a fasting lipid profile, which showed triglycerides of 413, cholesterol 119, LDL direct 37, and HDL 24. Chest x-ray, impression: No active cardiopulmonary disease. DISCHARGE MEDICATIONS: 1. Albuterol HFA inhaler 2 puffs INH q.4 hours p.r.n. (new prescription). 2. DuoNeb 1 neb INH q.4-6 hours p.r.n. (new prescription). 3. Azithromycin 250 mg p.o. x1 dose to complete a 5-day course. 4. Codeine 50 mg p.o. q.6 hours p.r.n. for cough, daily dose of 4 tabs, dispensed 12 tablets. 5. Hydrochlorothiazide 12.5 mg p.o. daily. 6. Lisinopril 15 mg p.o. daily (please note that this is increased from 10). 7. Lipitor 10 mg p.o. daily. 8. Omeprazole 20 mg p.o. b.i.d. 9. Lantus 60 units subcu 24 hours in the a.m. (please note this is increased from 50 units). 10. Humalog 24 units subcu t.i.d. with meals (please note this is increased from 21 units t.i.d.). 11. Nicotine patch 21 mg/24 hour 1 patch transderm daily (new prescription). 12. Spiriva inhaler 1 puff INH daily (new prescription). 13. Mucinex 600 mg p.o. b.i.d. 14. Prednisone 40 mg p.o. daily x2 days, reducing dose 10 mg every 2 days, then stop. 15. Trulicity 0.75 mg subcu weekly. 16. Mirtazapine 45 mg p.o. daily. 17. Lunesta 1 mg p.o. q.p.m. 18. TriCor 145 mg p.o. daily. 19. Suvorexant 10 mg p.o. daily. ALLERGIES: PROPOXYPHENE. DISCHARGE PLAN: 1. The patient is stable for discharge to home. 2. The patient has been set up with a nebulizing machine through [facility]. 3. Referral to Dr. Stanton for COPD management. 4. Follow up with Dr. Gil in 1 to 2 weeks. 5. The patient was instructed to monitor his blood sugars 3 to 4 times a day, especially being mindful when he comes off the prednisone as he may need to reduce his insulin. 6. The patient was counseled in regard to healthy lifestyle, diet, and weight loss. He is encouraged to follow up with a qualitative field coordinator. 7. Follow up with primary care provider, Dr. Astrid Rasmussen, tomorrow, Sunday , 05/08/18, at 1:40 p.m. TIME SPENT: Approximately 75 minutes was spent on this discharge. OG RODRIGEZ, LATHING SUPERVISOR [id number]/[facility] #: [id number] [place]
== END 2018-05-07 11:00 | disposition home or self-care (01) | DRG 192 ==
LOC: ED 02:32 → MED 05:38 → OBSVTOIN 05-06 11:09
PROVIDERS: ADMIT Internal Medicine; ATTEND Internal Medicine
DX: J44.1 Chronic obstructive pulmonary disease with (acute) exacerbation (principal); E11.65 Type 2 diabetes mellitus with hyperglycemia; I10 Essential (primary) hypertension; F17.210 Nicotine dependence, cigarettes, uncomplicated; K21.9 Gastro-esophageal reflux disease without esophagitis; F43.10 Post-traumatic stress disorder, unspecified; E66.9 Obesity, unspecified; E78.1 Pure hyperglyceridemia; E78.5 Hyperlipidemia, unspecified; Z87.820 Personal history of traumatic brain injury; Z68.36 Body mass index [BMI] 36.0-36.9, adult; Z79.2 Long term (current) use of antibiotics; Z79.1 Long term (current) use of non-steroidal anti-inflammatories (NSAID); Z79.4 Long term (current) use of insulin; Z79.891 Long term (current) use of opiate analgesic; Z79.51 Long term (current) use of inhaled steroids; Z79.899 Other long term (current) drug therapy; Z82.5 Family history of asthma and other chronic lower respiratory diseases; Z80.1 Family history of malignant neoplasm of trachea, bronchus and lung; Z80.6 Family history of leukemia
CPT/HCPCS: 36415; 71046; 80048; 80053; 80061; 82947; 83036; 83605; 83721; 84484; 85025; 87040; 93005; 94640; 99284; 99406; A9270-GY; G0378; J0456; J1650; J2920; J2930; J7512; J7611

== ENCOUNTER 2018-05-15 15:59 | Inpatient (IN) | payer MEDICARE, OTHER ==
[2018-05-15] MEDS ORDERED: Albuterol/Ipratropium NEB.SOL* Albuterol 2.5 MG/Ipratropium 0.5 MG 3 ML INH ONE ×2 (18:30→21:13)
[2018-05-15 18:51] LABS: ABS Basophils 0.1 10^3/ul (0-0.2); ABS Eosinophils 0.1 10^3/ul (0-0.6); ABS Lymphocytes 1.4 10^3/ul (1.0-4.8); ABS Monocytes 0.8 10^3/ul (0-0.8); ABS Nucleated RBC 0 10^3/ul; Hematocrit 44 % (42-52); Hemoglobin 14.8 g/dl (14.0-18.0); Lymphocyte % 11.1 % (25-47); Mean Corpuscular HGB Conc 34 g/dl (31-36); Mean Corpuscular Hemoglobin 30 pg (27-31); Mean Corpuscular Volume 90 fL (80-94); Nucleated Red Blood Cells % 0; Platelet Count 180 10^3/ul (150-450); Red Blood Count 4.91 10^6/ul (4.00-5.40); Red Cell Distribution Width 15 % (10.5-15); White Blood Count 12.4 10^3/ul (3.5-10.8)
[2018-05-15 19:13] LABS: EGFR Non-African American 85.1 (>60)
--- NOTE | 2018-05-15 20:56 | ED ---
Shortness of Breath - HPI Summary HPI Summary: This patient is a 57 year old M presenting to [facility] accompanied by his and siblings with a chief complaint of SOB since 05/04/18. He endorses severe cough , thrush, insomnia secondary to cough, PMHx DM. Pt does not use O2 at home; pt at 92% O2 sat with 3L NC. He notes he was admitted 05/04-05/07 for similar sx. Pt states breathing tx alleviateded sx at first, but not anymore. PMHx sleep apnea but cannot wear C-PAP because of restricted smothering feeling. Pt notes he wasnt ever really asymptomatic after discharge. Pt smokes. - History of Current Complaint Chief Complaint: EDRespiratoryDistress Time Seen by Provider: 05/15/18 18:30 Hx Obtained From: Patient Onset/Duration: Lasting Weeks, Still Present Timing: Constant Current Severity: Moderate Dyspnea At: Rest Aggrevating Factors: Nothing Alleviating Factors: Bronchodilators Associated Signs & Symptoms: Cough (Nonproductive) Related History: Healthcare Acquired: Inpatient Status Within Last 30 Days - Allergy/Home Medications Allergies/Adverse Reactions: Allergies Allergy/AdvReac Type Severity Reaction Status Date / Time propoxyphene Allergy See Comment Verified 05/15/18 16:06 [From Damon-N] Home Medications: Home Medications Insulin ASPART (NF) [Novolog (NF)] 24 units SUBCUT AC 05/16/18 [History Confirmed 05/16/18] PMH/Surg Hx/FS Hx/Imm Hx Previously Healthy: No Endocrine/Hematology History: Reports: Hx Diabetes Denies: Hx Thyroid Disease Cardiovascular History: Reports: Hx Hypertension Denies: Hx Hypercholesterolemia, Hx Pacemaker/ICD, Hx Peripheral Vascular Disease Respiratory History: Reports: Hx Chronic Obstructive Pulmonary Disease (COPD) - emphysema, Hx Sleep Apnea - unable to wear CPAP mask Denies: Hx Asthma, Hx Seasonal Allergies GI History: Reports: Hx Irritable Bowel History: Reports: Hx Kidney Stones Musculoskeletal History: Denies: Hx Arthritis, Hx Rheumatoid Arthritis, Hx Osteoporosis, Hx Scoliosis Sensory History: Reports: Hx Hearing Problem - Some hearing loss Denies: Hx Cataracts, Hx Contacts or Glasses, Hx Glaucoma, Hx Hearing Aid Opthamlomology History: Denies: Hx Cataracts, Hx Contacts or Glasses, Hx Glaucoma Neurological History: Reports: Hx Migraine Denies: Hx Headaches, Hx Seizures, Hx Transient Ischemic Attacks (TIA), Other Neuro Impairments/Disorders Psychiatric History: Reports: Hx Eating Disorder, Hx Post Traumatic Stress Disorder, Other Psychiatric Issues/Disorders - ADD Denies: Hx Anxiety, Hx Depression, Hx Panic Disorder - Surgical History Surgery Procedure, Year, and Place: LASIK EYE SURGERY 2003 Infectious Disease History: No Infectious Disease History: Denies: Hx Clostridium Difficile, Hx Hepatitis, Hx Human Immunodeficiency Virus (HIV), Hx of Known/Suspected MRSA, Hx Shingles, Hx Tuberculosis, Hx Known/ Suspected VRE, Hx Known/Suspected VRSA, History Other Infectious Disease, Traveled Outside the [place] in Last 30 Days - Family History Known Family History: Positive: Hypertension, Other - Cancer - Social History Lives: With Family Alcohol Use: None Hx Substance Use: No Substance Use Type: Reports: None Hx Tobacco Use: Yes Smoking Status (MU): Current Every Day Smoker Type: Cigarettes Amount Used/How Often: 1 pack a day Review of Systems Negative: Fever Cardiovascular: Negative Positive: Shortness Of Breath, Cough Positive: no symptoms reported Skin: Negative Neurological: Negative Psychological: Normal All Other Systems Reviewed And Are Negative: Yes Physical Exam - Summary Physical Exam Summary: Appearance: Ill-appearing, no pain distress, well-nourished, hypertensive, respiratory distress, hypoxic. Skin: Warm, color reflects adequate perfusion, dry Head: Normal Head/Face inspection, atraumatic Eyes: Conjunctiva clear ENT: Normal inspection Neck: Supple, no nodes, no JVD Respiratory: diffuse wheezes throughout, mild respiratory distress Cardio: Tachycardic, No murmur, pulses normal, brisk capillary refill Abdomen: Soft, nontender Bowel sounds: Present Musculoskeletal: Strength Intact/ROM intact, no calf tenderness, no edema. Psychological: Normal Neuro: Alert, muscle tone normal, no focal deficit Triage Information Reviewed: Yes Vital Signs On Initial Exam: Initial Vitals Temp Pulse Resp BP Pulse Ox 98.6 F 107 20 150/76 88 05/15/18 16:02 05/15/18 16:02 05/15/18 16:02 05/15/18 16:02 05/15/18 16:02 Vital Signs Reviewed: Yes Diagnostics - Vital Signs Vital Signs Temp Pulse Resp BP Pulse Ox 05/15/18 20:20 22 129/98 05/15/18 20:16 98.1 F 101 17 147/95 94 05/15/18 20:00 100 28 90 05/15/18 19:49 101 27 147/95 92 05/15/18 19:45 102 89 05/15/18 18:50 100 20 93 05/15/18 18:14 97.8 F 105 24 147/80 92 05/15/18 16:02 98.6 F 107 20 150/76 88 - Laboratory Lab Results: Lab Results 05/15/18 05/15/18 05/15/18 Range/Units 18:38 18:38 18:38 WBC 12.4 H (3.5-10.8) 10^3/ul RBC 4.91 (4.00-5.40) 10^6/ul Hgb 14.8 (14.0-18.0) g/dl Hct 44 (42-52) % MCV 90 (80-94) fL MCH 30 (27-31) pg MCHC 34 (31-36) g/dl RDW 15 (10.5-15) % Plt Count 180 (150-450) 10^3/ul MPV 8.0 (7.4-10.4) um3 Neut % (Auto) 80.7 (38-83) % Lymph % (Auto) 11.1 L (25-47) % [place] % (Auto) 6.6 (0-7) % Eos % (Auto) 1.0 (0-6) % Baso % (Auto) 0.6 (0-2) % Absolute Neuts (auto) 10.0 H (1.5-7.7) 10^3/ul Absolute Lymphs (auto) 1.4 (1.0-4.8) 10^3/ul Absolute Monos (auto) 0.8 (0-0.8) 10^3/ul Absolute Eos (auto) 0.1 (0-0.6) 10^3/ul Absolute Basos (auto) 0.1 (0-0.2) 10^3/ul Absolute Nucleated RBC 0 10^3/ul Nucleated RBC % 0 Sodium 133 L (135-145) mmol/L Potassium TNP Chloride 99 L (101-111) mmol/L Carbon Dioxide 28 (22-32) mmol/L Anion Gap 6 (2-11) mmol/L BUN 15 (6-24) mg/dL Creatinine 0.92 (0.67-1.17) mg/dL Est GFR ( Amer) 103.0 (>60) Est GFR (Non-Af Amer) 85.1 (>60) BUN/Creatinine Ratio 16.3 (8-20) Glucose 257 H (70-100) mg/dL Lactic Acid 1.0 (0.5-2.0) mmol/L Calcium 9.1 (8.6-10.3) mg/dL Total Bilirubin 0.50 (0.2-1.0) mg/dL AST TNP ALT 58 H (7-52) U/L Alkaline Phosphatase 63 (34-104) U/L Troponin I 0.00 (<0.04) ng/mL C-Reactive Protein 32.45 H (<8.01) mg/L B-Natriuretic Peptide ( - 100) pg/mL Total Protein 6.5 (6.4-8.9) g/dL Albumin 3.6 (3.2-5.2) g/dL Globulin 2.9 (2-4) g/dL Albumin/Globulin Ratio 1.2 (1-3) 05/15/ Range/Units 18:38 WBC (3.5-10.8) 10^3/ul RBC (4.00-5.40) 10^6/ul Hgb (14.0-18.0) g/dl Hct (42-52) % MCV (80-94) fL MCH (27-31) pg MCHC (31-36) g/dl RDW (10.5-15) % Plt Count (150-450) 10^3/ul MPV (7.4-10.4) um3 Neut % (Auto) (38-83) % Lymph % (Auto) (25-47) % [place] % (Auto) (0-7) % Eos % (Auto) (0-6) % Baso % (Auto) (0-2) % Absolute Neuts (auto) (1.5-7.7) 10^3/ul Absolute Lymphs (auto) (1.0-4.8) 10^3/ul Absolute Monos (auto) (0-0.8) 10^3/ul Absolute Eos (auto) (0-0.6) 10^3/ul Absolute Basos (auto) (0-0.2) 10^3/ul Absolute Nucleated RBC 10^3/ul Nucleated RBC % Sodium (135-145) mmol/L Potassium Chloride (101-111) mmol/L Carbon Dioxide (22-32) mmol/L Anion Gap (2-11) mmol/L BUN (6-24) mg/dL Creatinine (0.67-1.17) mg/dL Est GFR ( Amer) (>60) Est GFR (Non-Af Amer) (>60) BUN/Creatinine Ratio (8-20) Glucose (70-100) mg/dL Lactic Acid (0.5-2.0) mmol/L Calcium (8.6-10.3) mg/dL Total Bilirubin (0.2-1.0) mg/dL AST ALT (7-52) U/L Alkaline Phosphatase (34-104) U/L Troponin I (<0.04) ng/mL C-Reactive Protein (<8.01) mg/L B-Natriuretic Peptide 75 ( - 100) pg/mL Total Protein (6.4-8.9) g/dL Albumin (3.2-5.2) g/dL Globulin (2-4) g/dL Albumin/Globulin Ratio (1-3) Result Diagrams: 05/18/18 07:42 05/18/18 07:42 Lab Statement: Any lab studies that have been ordered have been reviewed, and results considered in the medical decision making process. - Radiology CXR Radiology Interpretation Completed By: ED Physician Summary of Radiographic Findings: Questionable pneumo-mediastinum. Pending official imaging report. - CT CTA chest/thorax CT Interpretation Completed By: Radiologist Summary of CT Findings: Left lower lobe pneumonia, no PE, thyroid nodule. - EKG 1836 Cardiac Rate: Tachycardia - 100 EKG Rhythm: Sinus Tachycardia ST Segment: Non-Specific Ectopy: None EKG Comparison: No Significant Change Summary of EKG Findings: Incomplete RBBB, LAFB, nl AVCT, nl QTc Course/Dx - Course Course Of Treatment: A 57-year-old M presents to the ED with a CC of SOB since 05/04/18. (+) severe cough, wheeze, insomnia secondary to cough. PMHx COPD, sleep apnea. Admitted for similar sx on 05/04/18, discharged on 05/07/18, but states he was never really asymptomatic after discharge. Pt smokes. Pt does not use O2 at home, but is at 91 O2 sat on 3L NC. A CXR reveals questionable pneumo- mediastinum. An EKG reveals sinus tachycardia at 100 BPM with an incomplete RBBB and LAFB, with nl QTc and nl AVCT, with no STEMI. In the ED course, pt was given duoneb and solumedrol. Pt labs show high WBC, low lymph %, high abs neuts , low Na+, low Cl-, high glucose, high CRP, and high ALT.Lactate is normal, BNP normal. CTA lung shows no PE, LLL pneumonia, thyroid nodule. (report final after pt accepted for admission) Pt is admitted to Dr. Griffin. Pt to be admitted. Pending CTA chest/thorax at time of acceptance due to hypoxemic respiratory failure/COPD exacerbation. Antibiotics deferred to hospitalist if desired. Pt with normal lactate, afebrile, not septic at this time. - Diagnoses Differential Diagnosis/HQI/PQRI: Positive: Bronchitis, CHF, COPD Exacerbation, Pneumonia, Pulmonary Embolism Provider Diagnoses: COPD exacerbation, Hypertension, poor control, Left lower lobe pneumonia, Acute hypoxemic respiratory failure, Thyroid nodule, Poorly controlled diabetes mellitus - Physician Notifications Discussed Care of Patient With: Tegan Griffin Time Discussed With Above Provider: 21:13 Instructed by Provider To: Other - Recommends CTA chest/thorax. Accepts admission - Critical Care Time Critical Care Time: 30-74 min - 30 minutes Discharge - Sign-Out/Discharge Documenting (check all that apply): Patient Departure - admit - Discharge Plan Condition: Fair Disposition: ADMITTED TO [facility] - Billing Disposition and Condition Condition: FAIR Disposition: Admitted to [facility] - Attestation Statements Document Initiated by Tiffaniibe: Yes Documenting Scribe: Manjinder Padilla Provider For Whom Oxana is Documenting (Include Credential): Dr. Gissell Mullen MD Scribe Attestation: Manjinder Merrill scribed for Dr. Gissell Mullen MD on 05/20/18 at 1954. Scribe Documentation Reviewed: Yes Provider Attestation: The documentation as recorded by the Manjinder alvarez accurately reflects the service I personally performed and the decisions made by me, Dr. Gissell Mullen MD
[2018-05-15] MEDS ORDERED: methylPREDNISolone 125 MG* 2 ML VIAL IV ONE (21:09)
[2018-05-15] MEDS ORDERED: Acetaminophen TAB* 325 MG PO PRN (22:21)
[2018-05-15] MEDS ORDERED: Iodixanol 320 (CONTRAST) 100 ML SDV IV ONE (22:22)
[2018-05-15] MEDS ORDERED: Dextrose 50% Syringe 50 ML* 25 GM/50 ML SYRINGE IV PUSH PRN (22:34)
--- NOTE | 2018-05-15 23:08 | RAD ---
EXAM: CT Angiography Chest With Intravenous Contrast EXAM DATE/TIME: 05/15/2018 10:24 PM CLINICAL HISTORY: 57 years old, male; Signs and symptoms; Cough and shortness of breath; Additional info: Cough, ? pneumomediastinum, SOB, copd, ? pneumonia TECHNIQUE: Axial computed tomographic angiography images of the chest with intravenous contrast using CT angiography protocol. All CT scans at this facility use at least one of these dose optimization techniques: automated exposure control; mA and/or kV adjustment per patient size (includes targeted exams where dose is matched to clinical indication); or iterative reconstruction. Coronal and sagittal reformatted images were created and reviewed. MIP reconstructed images were created and reviewed. CONTRAST: 76 ml of VISIPAQUE 320 administered intravenously. COMPARISON: CHEST W CT CHEST W 04/30/2015 9:05 AM FINDINGS: Pulmonary arteries: Pulmonary arteries are well opacified to the subsegmental branches. Normal caliber main pulmonary artery. No filling defects throughout the pulmonary artery tree. Aorta: Normal caliber aorta with no evidence of dissection or rupture. Lungs: Consolidation posterior basal segment and medial basal segments left lower lobe. Remaining lungs are clear. Pleural space: Normal. No pneumothorax. No pleural effusion. Heart: Normal. No cardiomegaly. No pericardial effusion. Thyroid: Low attenuated nodule left thyroid measures 0.7 cm (series 2, image 13) not seen previously. No additional thyroid nodules. Bones/joints: The thoracic spine demonstrates mild degenerative changes at multiple levels. No fractures. No suspicious bone lesions. Soft tissues: Normal. Lymph nodes: Normal. No enlarged lymph nodes. IMPRESSION: 1. Left lower lobe pneumonia. 2. No pulmonary emboli. 3. Right thyroid nodule. ACR White Paper guidelines (Christopher MachadoK, et al. JACR 2015;12(2):143-50) suggest that no follow-up is necessary. COMMENT: Consistent with the [employer]'s Incidental Findings Committee Report (J Am Helen Radiol 2014): Unless the patient's specific circumstances suggest otherwise, any thyroid nodule less than 1.0 cm not otherwise characterized in this report as possessing suspicious or indeterminate imaging features is highly likely to be benign and does not require follow-up imaging or biopsy. To contact [facility] with a general question: [facility] - [phone] For direct physician to physician contact: Physician Hotline - [phone] [facility] ([facility] Facility ID #[id number])
[2018-05-15] MEDS ORDERED: Piperacillin/Tazobac ADVAN(*) 3.375 GM in NS 0.9% 100 ML* 100 ML IVPB ONE (23:26)
[2018-05-15] MEDS ORDERED: Zosyn per Pharmacy* NOTE FOLLOW UP SCH (23:45)
[2018-05-15] MEDS: Mirtazapine TAB* 15 MG PO PRN (23:59)
[2018-05-15] MEDS: Insulin GLARGINE(*) 1 UNITS UNIT SUBCUT SCH (23:59)
[2018-05-16] MEDS: Albuterol/Ipratropium NEB.SOL* Albuterol 2.5 MG/Ipratropium 0.5 MG 3 ML INH SCH ×7 (00:08→21:14)
[2018-05-16] MEDS ORDERED: (Suvorexant [Belsomra] 10 MG) PO PRN (00:22)
[2018-05-16] MEDS: methylPREDNISolone SOD 40 MG* 1 ML VIAL IV SCH ×4 (00:45→23:23)
--- NOTE | 2018-05-16 03:18 | HP ---
CC: Astrid Rasmussen MD * HISTORY AND PHYSICAL: DATE OF ADMISSION: 05/15/18 PRIMARY CARE PROVIDER: Astrid Rasmussen MD CHIEF COMPLAINT: Shortness of breath. HISTORY OF PRESENT ILLNESS: Lj Ozuna is a 57-year-old male who was hospitalized at our facility from 05/04/18 to 05/07/18 for COPD exacerbation. At discharge, he did not require oxygen anymore and he was discharged on prednisone taper and azithromycin. He stated that he was doing "all right," although still complained of shortness of breath and cough but on the day of his last prednisone dose which was today, he developed worsening shortness of breath. He presented to the hospital. His oxygen saturations on room air were 88%. He is going to be admitted with the diagnosis of COPD exacerbation and hypoxemic respiratory failure. PAST MEDICAL HISTORY: 1. History of recent COPD exacerbation as mentioned above. 2. Diabetes type 2. 3. History of pancreatitis secondary to hypertriglyceridemia in the past. 4. Hypertension. 5. Gastroesophageal reflux disease. 6. Posttraumatic stress disorder. 7. Traumatic brain injury in 2004. MEDICATIONS: Includes: 1. Albuterol inhaler on p.r.n. basis. 2. DuoNeb on a p.r.n. basis. 3. Codeine 50 mg every 6 hours on p.r.n. basis for cough. 4. Hydrochlorothiazide 12.5 mg daily. 5. Lisinopril 15 mg p.o. daily. 6. Lipitor 10 mg daily. 7. Omeprazole 20 mg b.i.d. 8. Lantus insulin 60 units daily. 9. Humalog insulin 24 units 3 times a day. 10. Nicotine patch transdermally daily at 21 mg/24 hour. 11. Spiriva inhaler 1 inhalation daily. 12. Mucinex 600 mg b.i.d. p.r.n. 13. Prednisone, the patient had been on 10 mg and today was the last dose. 14. Trulicity 0.75 mg subcu weekly. 15. Mirtazapine 45 mg daily. 16. Lunesta 1 mg q.p.m. 17. TriCor 145 mg daily. 18. Suvorexant 10 mg daily. ALLERGIES: No known drug allergies. FAMILY HISTORY: Positive for father who of leukemia. Mom with history of lung cancer. SOCIAL HISTORY: The patient has a history of smoking 1 to 2 pack per day, started when he was 13-year-old and he quit on 05/04/18. He denies any alcohol or drug use. 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 He is a full code and his surrogate is his Brisa Rm. REVIEW OF SYSTEMS: Please see history of present illness. The patient stated that his appetite had been good. He has been coughing but he coughed up lot of green sputum 3 days ago, otherwise, he had not been able to cough up anything since. He complains of shortness of breath and "rattling in the chest." He denies chest pain. All the remaining 12 systems were reviewed with the patient and were otherwise negative. PHYSICAL EXAMINATION GENERAL: The patient is a very pleasant 57-year-old male, who is not in acute distress. Alert, awake, and oriented x 3. VITAL SIGNS: Blood pressure of 129/98, heart rate 98 and regular, respiratory rate 16, oxygen saturation 95% on 2 L of oxygen via nasal cannula, 88% on room air, temperature is 98.1. HEENT: Head atraumatic, normocephalic. Eyes: Pupils are equal and reactive to light and accommodation. Oropharynx is clear. Mucosa moist. NECK: Supple. No JVD. No bruits bilaterally. RESPIRATORY: Diffuse wheezes and rhonchi in bilateral entire lungs. CARDIOVASCULAR: Regular rate and rhythm. No murmur. ABDOMEN: Soft, nontender. Bowel sounds are present in all 4 quadrants. EXTREMITIES: There is a trace bilateral pedal edema. Pulses +2 bilaterally. There is no clubbing and no cyanosis. NEURO EVALUATION: Speech clear. Cranial nerves II through XII grossly intact. Motor strength is 5/5 bilaterally. PSYCHIATRIC EVALUATION: Oriented x3 with no evidence of anxiety or depression. Skin: On evaluation of the skin, no ecchymotic area or rash is noted. DIAGNOSTIC STUDIES/LAB DATA: Showed sodium was 133, potassium was hemolyzed, chloride of 99, carbon dioxide 28, BUN 15, creatinine 0.92, and the glucose of 157 . The patient's liver function tests showed ALT of 58, alkaline phosphatase of 63. Lactic acid was 1.0. C-reactive protein was 32 consistent with prior troponin of 0 and brain natriuretic peptide was 75. The patient's portable chest x-ray showed no infiltrates with possibility of normal mediastinum. A CT angiogram is being obtained to rule out a pneumomediastinum as well as rule out PE. ASSESSMENT AND PLAN: 1. Mr. Ozuna is a 57-year-old male with extensive smoking history who presents for readmission for chronic obstructive pulmonary disease exacerbation with acute hypoxemic respiratory failure. At this point, the patient was already treated with antibiotics. We will obtained his procalcitonin level but I will not treat him with antibiotics. There was no evidence of infection at this point on his chest x- ray and his CT angiogram was pending. I will place him on Solu-Medrol, nebulizers which are going to be scheduled. He is in acute hypoxemic respiratory failure due to chronic obstructive pulmonary disease exacerbation and supplemental oxygen is going to be provided. 2. For his diabetes insulin sliding scale is going to be obtained. We will also continue the patient's Lantus at home dose. 3. For his dyslipidemia atorvastatin is going to be continued. 4. For DVT prophylaxis, the patient is going to be placed on heparin subcutaneously. 5. I suspect the patient would also benefit from Pulmonology consult which can be requested in the morning. 6. The patient's code status is full and his surrogate is his . TIME SPENT: Approximately 65 minutes was spent on the admission of this patient , more than half that time was spent [id number] with the patient during the interview and physical exam. [id number]/CPS #: [id number] [facility]
[2018-05-16] MEDS: ZOSYN 3.375 GM Q8H per EXTENDED INFUSION IVPB SCH ×6 (05:05→20:03)
[2018-05-16] MEDS: Heparin VIAL(*) 5000 UNITS/ML VIAL (FIVE THOUSAND) SUBCUT SCH ×3 (05:08→21:07)
[2018-05-16 07:34] LABS: ABS Basophils 0 10^3/ul (0-0.2); ABS Eosinophils 0 10^3/ul (0-0.6); ABS Lymphocytes 0.5 10^3/ul (1.0-4.8); ABS Monocytes 0.1 10^3/ul (0-0.8); ABS Neutrophils 11.2 10^3/ul (1.5-7.7); ABS Nucleated RBC 0 10^3/ul; Eosinophil % 0.1 % (0-6); Hematocrit 47 % (42-52); Hemoglobin 15.4 g/dl (14.0-18.0); Lymphocyte % 4.3 % (25-47); Mean Corpuscular HGB Conc 33 g/dl (31-36); Mean Corpuscular Hemoglobin 30 pg (27-31); Mean Corpuscular Volume 91 fL (80-94); Mean Platelet Volume 8.7 um3 (7.4-10.4); Nucleated Red Blood Cells % 0; Platelet Count 164 10^3/ul (150-450); Red Blood Count 5.23 10^6/ul (4.00-5.40); Red Cell Distribution Width 15 % (10.5-15); White Blood Count 11.8 10^3/ul (3.5-10.8)
[2018-05-16 07:48] LABS: EGFR Non-African American 68.5 (>60)
--- NOTE | 2018-05-16 07:56 | RAD ---
HISTORY: SOB COMPARISONS: May 04, 2018 VIEWS: 4: Frontal dual-energy and lateral views of the chest. FINDINGS: CARDIOMEDIASTINAL SILHOUETTE: The cardiomediastinal silhouette is normal. NOA: The noa are normal. PLEURA: The costophrenic angles are sharp. No pleural abnormalities are noted. LUNG PARENCHYMA: The lungs are clear. ABDOMEN: The upper abdomen is clear. There is no subphrenic gas. BONES AND SOFT TISSUES: No bone or soft tissue abnormalities are noted. OTHER: None. IMPRESSION: NO ACTIVE CARDIOPULMONARY DISEASE. R1NF
[2018-05-16] MEDS: CMCS: Fenofibrate(NF) 145 MG TAB PO SCH (08:44)
[2018-05-16] MEDS: Omeprazole CAP* 20 MG PO SCH ×2 (08:44→20:10)
[2018-05-16] MEDS ORDERED: Insulin LISPRO* 1 UNITS UNIT SUBCUT ONE (08:44)
[2018-05-16] MEDS: Nicotine PATCH 21 MG/24 HR* PATCH TRANSDERM SCH (08:45)
[2018-05-16] MEDS: Insulin LISPRO* 1 UNITS UNIT SUBCUT SCH ×6 (08:46→21:06)
[2018-05-16] MEDS: Nystatin SUSPENSION* 100000 UNITS/ML 5 ML UDC SWISH SPIT SCH ×3 (12:58→20:11)
--- NOTE | 2018-05-16 15:49 | PN ---
Subjective Date of Service: 05/16/18 Interval History: Patient seen and examined, states he still feels clinically short of breath and having coughing fits. Denies fever or chills, no chest pain, no n/v. at bedside. Objective Active Medications: Acetaminophen (Tylenol Tab*) 650 mg PO Q4H PRN PRN Reason: FEVER/PAIN Albuterol/Ipratropium (Duoneb (Albuterol 2.5 Mg/Ipratropium 0.5 Mg)) 1 neb INH [id number] AWAKE [facility] Last Admin: 05/16/18 14:56 Dose: 1 neb Atorvastatin Calcium (Lipitor*) 10 mg PO 2100 [facility] Benzonatate (Tessalon Cap*) 100 mg PO BID PRN PRN Reason: COUGH Dextrose (D50w Syringe 50 Ml*) 12.5 gm IV PUSH .FOR FS < 60 - SS PRN PRN Reason: FS < 60 Fenofibrate (Tricor(Nf)) 145 mg PO DAILY [facility]; Protocol Last Admin: 05/16/18 08:44 Dose: 145 mg Guaifenesin (Mucinex*) 600 mg PO BID [facility] Heparin Sodium (Porcine) (Heparin Vial(*)) 5,000 units SUBCUT Q8HR [facility] Last Admin: 05/16/18 12:56 Dose: 5,000 units Piperacillin Sod/Tazobactam (Sod 3.375 gm/ Sodium Chloride) 100 mls @ 25 mls/ hr IVPB Q8H [facility] Last Admin: 05/16/18 12:56 Dose: 25 mls/hr Insulin Glargine (Lantus(*)) 60 units SUBCUT Q24H [facility] Last Admin: 05/15/18 23:59 Dose: 60 units Insulin Human Lispro (Humalog*) 0 units SUBCUT ACHS [facility]; Protocol Last Admin: 05/16/18 12:57 Dose: 15 units Insulin Human Lispro (Humalog*) 24 units SUBCUT AC [facility] Last Admin: 05/16/18 12:57 Dose: 24 units Methylprednisolone Sodium Succinate (Solu-Medrol 40 Mg) 40 mg IV Q8H [facility] Last Admin: 05/16/18 15:32 Dose: 40 mg Mirtazapine (Remeron Tab*) 15 mg PO BEDTIME PRN PRN Reason: SLEEP Last Admin: 05/15/18 23:59 Dose: 15 mg Nicotine (Nicotine Patch 21 Mg/24 Hr*) 1 patch TRANSDERM DAILY [facility] Last Admin: 05/16/18 08:45 Dose: 1 patch (Suvorexant [ (Belsomra] 10 Mg)) 10 mg PO BEDTIME PRN PRN Reason: INSOMNIA Nystatin (Nystatin Suspension*) 500,000 units SWISH SPIT QID [facility] Stop: 05/23/18 10:01 Last Admin: 05/16/18 12:58 Dose: 500,000 units Omeprazole (Prilosec Cap*) 20 mg PO BID [facility] Last Admin: 05/16/18 08:44 Dose: 20 mg Pharmacy Consult (Zosyn Per Pharmacy*) 1 note FOLLOW UP .ZOSYN PER PHARMACY [facility] Pharmacy Profile Note (Nicotine Patch Removal Note*) 1 note PATCH OFF 2100 [facility] Vital Signs - 8 hr 05/16/18 05/16/18 05/16/18 08:00 11:22 11:47 Temperature 98.0 F Pulse Rate 105 103 Respiratory 24 19 20 Rate Blood Pressure 143/82 (mmHg) O2 Sat by Pulse 91 92 Oximetry 05/16/18 14:56 Temperature Pulse Rate 115 Respiratory 18 Rate Blood Pressure (mmHg) O2 Sat by Pulse 92 Oximetry Oxygen Devices in Use Now: Nasal Cannula Appearance: alert, NAD Eyes: No Scleral Icterus, PERRLA Ears/Nose/Mouth/Throat: NL Teeth, Lips, Gums Neck: NL Appearance and Movements; NL JVP, Trachea Midline Respiratory: - - diminished throughout, bilateral wheezes, poor air entry Cardiovascular: NL Sounds; No Murmurs; No JVD, RRR, No Edema Extremities: No Edema, No Clubbing, Cyanosis Skin: No Rash or Ulcers Neurological: Alert and Oriented x 3 Nutrition: Taking PO's Result Diagrams: 05/16/18 06:28 05/16/18 06:28 Additional Lab and Data: Lab Results 05/15/18 05/15/18 05/15/18 Range/Units 18:38 18:38 18:38 WBC 12.4 H (3.5-10.8) 10^3/ul RBC 4.91 (4.00-5.40) 10^6/ul Hgb 14.8 (14.0-18.0) g/dl Hct 44 (42-52) % MCV 90 (80-94) fL MCH 30 (27-31) pg MCHC 34 (31-36) g/dl RDW 15 (10.5-15) % Plt Count 180 (150-450) 10^3/ul MPV 8.0 (7.4-10.4) um3 Neut % (Auto) 80.7 (38-83) % Lymph % (Auto) 11.1 L (25-47) % [place] % (Auto) 6.6 (0-7) % Eos % (Auto) 1.0 (0-6) % Baso % (Auto) 0.6 (0-2) % Absolute Neuts (auto) 10.0 H (1.5-7.7) 10^3/ul Absolute Lymphs (auto) 1.4 (1.0-4.8) 10^3/ul Absolute Monos (auto) 0.8 (0-0.8) 10^3/ul Absolute Eos (auto) 0.1 (0-0.6) 10^3/ul Absolute Basos (auto) 0.1 (0-0.2) 10^3/ul Absolute Nucleated RBC 0 10^3/ul Nucleated RBC % 0 Sodium 133 L (135-145) mmol/L Potassium TNP Chloride 99 L (101-111) mmol/L Carbon Dioxide 28 (22-32) mmol/L Anion Gap 6 (2-11) mmol/L BUN 15 (6-24) mg/dL Creatinine 0.92 (0.67-1.17) mg/dL Est GFR ( Amer) 103.0 (>60) Est GFR (Non-Af Amer) 85.1 (>60) BUN/Creatinine Ratio 16.3 (8-20) Glucose 257 H (70-100) mg/dL Lactic Acid 1.0 (0.5-2.0) mmol/L Calcium 9.1 (8.6-10.3) mg/dL Total Bilirubin 0.50 (0.2-1.0) mg/dL AST TNP ALT 58 H (7-52) U/L Alkaline Phosphatase 63 (34-104) U/L Troponin I 0.00 (<0.04) ng/mL C-Reactive Protein 32.45 H (<8.01) mg/L B-Natriuretic Peptide ( - 100) pg/mL Total Protein 6.5 (6.4-8.9) g/dL Albumin 3.6 (3.2-5.2) g/dL Globulin 2.9 (2-4) g/dL Albumin/Globulin Ratio 1.2 (1-3) 05/15/18 Range/Units 18:38 WBC (3.5-10.8) 10^3/ul RBC (4.00-5.40) 10^6/ul Hgb (14.0-18.0) g/dl Hct (42-52) % MCV (80-94) fL MCH (27-31) pg MCHC (31-36) g/dl RDW (10.5-15) % Plt Count (150-450) 10^3/ul MPV (7.4-10.4) um3 Neut % (Auto) (38-83) % Lymph % (Auto) (25-47) % [place] % (Auto) (0-7) % Eos % (Auto) (0-6) % Baso % (Auto) (0-2) % Absolute Neuts (auto) (1.5-7.7) 10^3/ul Absolute Lymphs (auto) (1.0-4.8) 10^3/ul Absolute Monos (auto) (0-0.8) 10^3/ul Absolute Eos (auto) (0-0.6) 10^3/ul Absolute Basos (auto) (0-0.2) 10^3/ul Absolute Nucleated RBC 10^3/ul Nucleated RBC % Sodium (135-145) mmol/L Potassium Chloride (101-111) mmol/L Carbon Dioxide (22-32) mmol/L Anion Gap (2-11) mmol/L BUN (6-24) mg/dL Creatinine (0.67-1.17) mg/dL Est GFR ( Amer) (>60) Est GFR (Non-Af Amer) (>60) BUN/Creatinine Ratio (8-20) Glucose (70-100) mg/dL Lactic Acid (0.5-2.0) mmol/L Calcium (8.6-10.3) mg/dL Total Bilirubin (0.2-1.0) mg/dL AST ALT (7-52) U/L Alkaline Phosphatase (34-104) U/L Troponin I (<0.04) ng/mL C-Reactive Protein (<8.01) mg/L B-Natriuretic Peptide 75 ( - 100) pg/mL Total Protein (6.4-8.9) g/dL Albumin (3.2-5.2) g/dL Globulin (2-4) g/dL Albumin/Globulin Ratio (1-3) Diagnostic Imaging: Patient Name: ANGEL CHU Medical Record#: [id number] Ordering Physician: [id number] 1960 Age: 57 Sex: M Location: [address] [place] [address] Exam Date: 05/15/182113 ADM Status: ADM IN Order Information: CTA CHEST Accession Number: [id number] CPT: 97051 EXAM: CT Angiography Chest With Intravenous Contrast EXAM DATE/TIME: 05/15/2018 10:24 PM CLINICAL HISTORY: 57 years old, male; Signs and symptoms; Cough and shortness of breath; Additional info: Cough, ? pneumomediastinum, SOB, copd, ? pneumonia TECHNIQUE: Axial computed tomographic angiography images of the chest with intravenous contrast using CT angiography protocol. All CT scans at this facility use at least one of these dose optimization techniques: automated exposure control; mA and/or kV adjustment per patient size (includes targeted exams where dose is matched to clinical indication); or iterative reconstruction. Coronal and sagittal reformatted images were created and reviewed. MIP reconstructed images were created and reviewed. CONTRAST: 76 ml of VISIPAQUE 320 administered intravenously. COMPARISON: CHEST W CT CHEST W 04/30/2015 9:05 AM FINDINGS: Pulmonary arteries: Pulmonary arteries are well opacified to the subsegmental branches. Normal caliber main pulmonary artery. No filling defects throughout the pulmonary artery tree. Aorta: Normal caliber aorta with no evidence of dissection or rupture. Lungs: Consolidation posterior basal segment and medial basal segments left lower lobe. Remaining lungs are clear. Pleural space: Normal. No pneumothorax. No pleural effusion. Heart: Normal. No cardiomegaly. No pericardial effusion. Thyroid: Low attenuated nodule left thyroid measures 0.7 cm (series 2, image 13) not seen previously. No additional thyroid nodules. Bones/joints: The thoracic spine demonstrates mild degenerative changes at multiple levels. No fractures. No suspicious bone lesions. Soft tissues: Normal. Lymph nodes: Normal. No enlarged lymph nodes. IMPRESSION: 1. Left lower lobe pneumonia. 2. No pulmonary emboli. 3. Right thyroid nodule. ACR White Paper guidelines (White JK, et al. JACR 2015;12(2):143-50) suggest that no follow-up is necessary. COMMENT: Consistent with the [place] [employer] [employer]'s Incidental Findings Committee Report (J Am Helen Radiol 2014): Unless the patient's specific This report is only to be considered final once signed by the Provider(s) as displayed in the "<Electronically Signed by >" field (s). Absence of a signature indicates the report is in a draft status and still needs to be finalized. In the event this document was created by someone other than the signing Provider, the individual initiating the document will be listed in the "Entered by:" or "Dictated by:" schaefer. 1 of 2 Assess/Plan/Problems-Billing Assessment: This is a 57 year old man with recent COPD exacerbation, now admitted with LLL PNA. - Patient Problems (1) Left lower lobe pneumonia Code(s): J18.1 - LOBAR PNEUMONIA, UNSPECIFIED ORGANISM SNOMED Code(s): 727937132 Comment: - With hypoxic respiratory failure - CT as above - Empirically started on zosyn - Continue solumedrol, nebs, tessalon and mucinex, and flutter valve with nebs - Titrate and wean O2 requirement (2) COPD exacerbation Code(s): J44.1 - CHRONIC OBSTRUCTIVE PULMONARY DISEASE W (ACUTE) EXACERBATION SNOMED Code(s): 990109698 Comment: - Will consult Dr. Stanton, as patient has appointment with her in June but will need closer follow up now - Continue spiriva and low dose solumedrol Q8H - Concern that patient will need home O2 - Patient should quit smoking indefinitely (3) Depression Code(s): F32.9 - MAJOR DEPRESSIVE DISORDER, SINGLE EPISODE, UNSPECIFIED SNOMED Code(s): 83884220 Comment: - Continue mirtazapine (4) Diabetes Code(s): E11.9 - TYPE 2 DIABETES MELLITUS WITHOUT COMPLICATIONS SNOMED Code(s) : 42274909 Comment: - Currently uncontrolled given IV steroids - Continue home regimen of lantus 60u QD and lispro 24u TID/AC with SS coverage - Patient wishes to follow up with Dr. Wang outpatient and has appointment on Sunday - Counseled on reducing carbs in his diet, no soda and no juice especially while on steroids (5) DVT prophylaxis Code(s): JUP6219 - SNOMED Code(s): 500848713 Comment: - HSQ (6) Full code status Code(s): Z78.9 - OTHER SPECIFIED HEALTH STATUS SNOMED Code(s): 955657520 Status and Disposition: Inpatient, appreciate recs from pulmonology.
[2018-05-16] MEDS: Benzonatate CAP* 100 MG PO PRN (17:45)
[2018-05-16] MEDS: Atorvastatin* 10 MG TAB PO SCH (20:10)
[2018-05-16] MEDS: Mirtazapine TAB* 15 MG PO PRN (20:11)
[2018-05-16] MEDS: guaiFENesin ER TAB 600 MG PO SCH (20:11)
[2018-05-16] MEDS: Nicotine Patch Removal NOTE PATCH OFF SCH (21:06)
[2018-05-16] MEDS: Insulin GLARGINE(*) 1 UNITS UNIT SUBCUT SCH (23:15)
[2018-05-17] MEDS: Albuterol/Ipratropium NEB.SOL* Albuterol 2.5 MG/Ipratropium 0.5 MG 3 ML INH SCH ×6 (00:08→18:15)
--- NOTE | 2018-05-17 02:21 | CONS ---
PULMONARY CONSULTATION REPORT: DATE OF CONSULT: 05/16/18 CONSULTATION REQUESTED BY: Makayla Woodall NP REASON FOR CONSULT: Evaluation of COPD. 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 The patient is admitted for evaluation of worsening shortness of breath. The patient recently was hospitalized for acute COPD exacerbation. He was discharged on tapering courses of prednisone and azithromycin. He was doing well for a few days and started having worsening shortness of breath and cough again. The patient reports sick contact with one of the friends having pneumonia recently after returning from travel out of the country. The patient denies fevers or chills. The patient reports cough productive of green phlegm and brown phlegm. Given worsening symptoms, he presented to the hospital again. The patient was found to be hypoxemic on room air with O2 sats around 88%. He was found to be in significant distress with significant wheezing on auscultation. He was admitted for management of acute COPD exacerbation and hypoxemic respiratory failure. The patient was seen and examined at bedside. The patient reports slight improvement in his breathing. The patient reports feeling congested in the chest. The patient reports having inability to bring the phlegm out. The patient denies chest pain, palpitations, dizziness, loss of weight, or appetite. The patient has significant smoking history until he quit recently. 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 The patient reports significant dyspnea on exertion that has been gradually worsening. He also reports chronic cough with thick phlegm. He has not seen a activities aide in the past. He has not been on any inhalers. He recently was prescribed nebulizer and reports benefit from nebulizer treatments. Further evaluation in the emergency room included chest x-ray and CT scan of the chest. I personally reviewed chest x-ray and CT scan of the chest results. Chest x-ray suggestive of patchy airspace opacity at the left base. CT scan of the chest was personally reviewed - evidence of airspace opacity in the left lung base. No filling defects in pulmonary arteries. No significant mediastinal or hilar adenopathy noted. No significant emphysematous changes noted. The patient also noted to have elevated white count on admission. He was noted to have low sodium. Blood sugars have been elevated. He was started on nebulizers, Solu-Medrol at 40 q.8. He was also started on broad-spectrum antibiotics with Zosyn. He was started on nicotine supplementation. PAST MEDICAL HISTORY: 1. COPD. 2. Diabetes, type 2. 3. Pancreatitis secondary to hypertriglyceridemia. 4. Hypertension. 5. Morbid obesity. 6. Gastroesophageal reflux disease. 7. Posttraumatic stress disorder. 8. Traumatic brain injury in 2004. MEDICATIONS: 1. Albuterol. 2. DuoNeb. 3. Codeine. 4. Hydrochlorothiazide. 5. Lisinopril. 6. Lipitor. 7. Omeprazole. 8. Lantus. 9. Humalog. 10. Nicotine. 11. Spiriva. 12. Mucinex. 13. Prednisone. 14. Trulicity. 15. Mirtazapine. 16. Lunesta. 17. TriCor. 18. Suvorexant. ALLERGIES: No known drug allergies. FAMILY HISTORY: Positive for father with leukemia and mother with history of lung cancer. SOCIAL HISTORY: Significant smoking history since 13 years old, quit 05/04/18. Denies alcohol or drug abuse. REVIEW OF SYSTEMS: All 14 systems are reviewed and as per HPI. PHYSICAL EXAM: Morbidly obese male, sitting in chair, in no apparent distress. Vital Signs: Temperature 98, pulse 105 beats per minute, respiratory rate 19 per minute, O2 sat 91% on 6 L, blood pressure 143/82. HEENT: Pupils equal and reactive to light. Mucous membranes moist. Lungs: Diminished air entry bilaterally. Significant wheezing on auscultation bilaterally. Cardiovascular : S1, S2 present, regular. Abdomen: Soft, nontender, nondistended. Bowel sounds present. Extremities: Normal range of motion. Skin: No rash or bruits. Neuro: No focal deficits. DIAGNOSTIC STUDIES/LAB DATA: WBC count 11.8, hemoglobin 15.4, hematocrit 47, platelet count 164 with left shift. Sodium 131, potassium 5.1, chloride 98, bicarb 27, BUN 20, creatinine 1.11, significantly elevated blood sugars. Chest x-ray and CTA of the chest as described above in HPI. IMPRESSION AND RECOMMENDATIONS: 57-year-old morbidly obese male with history of significant chronic obstructive pulmonary disease, admitted with acute chronic obstructive pulmonary disease exacerbation. The patient also with left lower lobe pneumonia. 1. Acute chronic obstructive pulmonary disease exacerbation. 2. Lower lobe pneumonia. 3. Hypoxemic respiratory failure. 4. Hyponatremia. 5. Leukocytosis. The patient with significant smoking history with no evidence of significant emphysema on CT chest. He appears to be having mostly bronchitic component of chronic obstructive pulmonary disease. He also has prior occupational exposure , which might also have resulted in significant bronchitic component of chronic obstructive pulmonary disease. He was recently hospitalized for pneumonia, readmitted after obtaining pneumonia resulting in acute flare of chronic obstructive pulmonary disease exacerbation. Pathophysiology of chronic obstructive pulmonary disease was discussed in detail with the patient. The patient is determined to quit smoking. Will continue with Solu-Medrol q.8 hours without taper yet since the patient is significantly wheezing at this time. Continue with bronchodilators q.4 hours. He is having difficulty expectorating phlegm. Recommend flutter device. The patient was instructed on optimal use of flutter device. Will also order Mucinex for mobilization of the phlegm. The patient's body habitus was concerning for sleep apnea. The patient reports significant claustrophobia. He also has history of posttraumatic stress disorder and anxiety and he is not able to use CPAP mask. He reports having sleep study in the past that was suggestive of sleep apnea. He does not breathe too well through his nose and is unable to tolerate nasal interface. Continue with O2 supplementation. We will follow up post discharge in pulmonary clinic in 2 weeks. Thank you for allowing me to participate in the care of your patient. Will follow up with you. [id number]/CPS #: [id number] SUMMER
[2018-05-17] MEDS: Benzonatate CAP* 100 MG PO PRN ×3 (03:35→19:36)
[2018-05-17] MEDS: ZOSYN 3.375 GM Q8H per EXTENDED INFUSION IVPB SCH ×6 (03:35→20:26)
[2018-05-17] MEDS: methylPREDNISolone SOD 40 MG* 1 ML VIAL IV SCH ×2 (06:59→17:37)
[2018-05-17] MEDS: Heparin VIAL(*) 5000 UNITS/ML VIAL (FIVE THOUSAND) SUBCUT SCH ×3 (06:59→21:22)
[2018-05-17] MEDS ORDERED: Albuterol/Ipratropium NEB.SOL* Albuterol 2.5 MG/Ipratropium 0.5 MG 3 ML INH PRN (07:18)
[2018-05-17] MEDS ORDERED: Insulin LISPRO* 1 UNITS UNIT SUBCUT STA ×2 (08:39)
[2018-05-17] MEDS ORDERED: Dextrose 50% Syringe 50 ML* 25 GM/50 ML SYRINGE IV PUSH PRN (08:39)
[2018-05-17] MEDS ORDERED: Insulin GLARGINE(*) 1 UNITS UNIT SUBCUT SCH ×2 (08:41→18:00)
[2018-05-17] MEDS: Insulin LISPRO* 1 UNITS UNIT SUBCUT SCH ×7 (08:48→21:21)
[2018-05-17] MEDS: Omeprazole CAP* 20 MG PO SCH ×2 (09:05→21:18)
[2018-05-17] MEDS: CMCS: Fenofibrate(NF) 145 MG TAB PO SCH (09:05)
[2018-05-17] MEDS: guaiFENesin ER TAB 600 MG PO SCH ×2 (09:05→21:18)
[2018-05-17] MEDS: Nicotine PATCH 21 MG/24 HR* PATCH TRANSDERM SCH (09:06)
[2018-05-17] MEDS: Nystatin SUSPENSION* 100000 UNITS/ML 5 ML UDC SWISH SPIT SCH ×4 (09:06→21:20)
[2018-05-17] MEDS ORDERED: Albuterol/Ipratropium NEB.SOL* Albuterol 2.5 MG/Ipratropium 0.5 MG 3 ML INH SCH ×2 (11:00→13:00)
[2018-05-17] MEDS ORDERED: Albuterol/Ipratropium NEB.SOL* Albuterol 2.5 MG/Ipratropium 0.5 MG 3 ML ONE (11:01)
[2018-05-17] MEDS ORDERED: Dulaglutide (NF) 0.75 MG/0.5 ML SYRINGE SUBCUT SCH (15:00)
[2018-05-17] MEDS: Albuterol 2.5 MG/3 ML NEB.SOL* (0.083%) INH PRN ×2 (19:24→22:03)
[2018-05-17] MEDS ORDERED: LORazepam INJ* 2 MG/ML 1 ML VIAL IV PUSH ONE ×2 (19:42→20:00)
[2018-05-17] MEDS ORDERED: LORazepam INJ* 2 MG/ML 1 ML VIAL ONE (19:44)
[2018-05-17] MEDS ORDERED: Codeine TAB* 15 MG PO PRN (20:10)
[2018-05-17] MEDS: Atorvastatin* 10 MG TAB PO SCH (21:19)
[2018-05-17] MEDS: Nicotine Patch Removal NOTE PATCH OFF SCH (21:24)
[2018-05-18] MEDS ORDERED: LORazepam INJ* 2 MG/ML 1 ML VIAL IV PUSH ONE (00:12)
[2018-05-18] MEDS: methylPREDNISolone SOD 40 MG* 1 ML VIAL IV SCH ×2 (00:23→08:17)
[2018-05-18] MEDS: Mirtazapine TAB* 15 MG PO PRN (00:28)
[2018-05-18] MEDS: Albuterol/Ipratropium NEB.SOL* Albuterol 2.5 MG/Ipratropium 0.5 MG 3 ML INH SCH ×4 (01:02→11:01)
[2018-05-18] MEDS: ZOSYN 3.375 GM Q8H per EXTENDED INFUSION IVPB SCH ×4 (05:28→12:18)
[2018-05-18] MEDS: Heparin VIAL(*) 5000 UNITS/ML VIAL (FIVE THOUSAND) SUBCUT SCH (05:37)
[2018-05-18 07:49] LABS: Hematocrit 41 % (42-52); Hemoglobin 13.6 g/dl (14.0-18.0); Mean Corpuscular HGB Conc 33 g/dl (31-36); Mean Corpuscular Hemoglobin 30 pg (27-31); Mean Corpuscular Volume 90 fL (80-94); Mean Platelet Volume 8.3 fL (7.4-10.4); Platelet Count 146 10^3/ul (150-450); Red Blood Count 4.57 10^6/ul (4.00-5.40); Red Cell Distribution Width 15 % (10.5-15); White Blood Count 10.8 10^3/ul (3.5-10.8)
[2018-05-18 08:07] LABS: EGFR Non-African American 70.7 (>60)
[2018-05-18] MEDS: Nicotine PATCH 21 MG/24 HR* PATCH TRANSDERM SCH (08:16)
[2018-05-18] MEDS: Insulin LISPRO* 1 UNITS UNIT SUBCUT SCH ×4 (08:17→11:45)
[2018-05-18] MEDS: Omeprazole CAP* 20 MG PO SCH (08:18)
[2018-05-18] MEDS: Nystatin SUSPENSION* 100000 UNITS/ML 5 ML UDC SWISH SPIT SCH (08:18)
[2018-05-18] MEDS: guaiFENesin ER TAB 600 MG PO SCH (08:18)
[2018-05-18] MEDS: CMCS: Fenofibrate(NF) 145 MG TAB PO SCH (08:18)
--- NOTE | 2018-05-18 08:50 | RAD ---
INDICATION: Exacerbation of COPD COMPARISON: Most recent comparison chest x-rays dated May 15, 2018 TECHNIQUE: Single AP portable view of the chest was obtained. FINDINGS: Image quality is compromised due to the relative inferiority of a portable chest x-ray. The heart and mediastinum exhibit normal size and contour. The lungs are grossly clear. There is no evidence of a large pleural effusion. Visualized bones are normal for the patient's age. IMPRESSION: No radiographic evidence for acute cardiopulmonary abnormality on this portable chest x-ray. R1NF
--- NOTE | 2018-05-18 08:54 | PN ---
Subjective Date of Service: 05/17/18 Interval History: Pt seen and examined. Meds and labs reviewed. CC: N/A ROS: Denied GUERRERO/dizziness, F/C, N/V, CP, SOB, increased cough, sputum production , abd pain, diarrhea, constipation, dysuria, myalgias, arthralgias, throat pain , and new skin lesions. The rest of the 14 point ROS are unremarkable. PHYSICAL EXAM: GEN APPEARANCE: Awake, not in acute distress HEENT: NC/AT, PERRLA, moist oral mucosa, (-) throat erythema NECK: Soft, supple, (-) cervical LAD, (-)JVD HEART: S1S2 WNL, RRR, No MRG CHEST: (+)inspiratory crackles on LLL, GAE, No W/R/R ABD: Soft, ND/NT, NABS 4x Q EXT: No C/C/E SKIN: Warm to touch PSYCH: No active psychosis, hallucinations, depression, SI/HI Objective Active Medications: Acetaminophen (Tylenol Tab*) 650 mg PO Q4H PRN PRN Reason: FEVER/PAIN Albuterol (Ventolin 2.5 Mg/3 Ml Neb.Kylah*) 2.5 mg INH Q2H PRN PRN Reason: SOB/WHEEZING Last Admin: 05/17/18 22:03 Dose: 2.5 mg Albuterol/Ipratropium (Duoneb (Albuterol 2.5 Mg/Ipratropium 0.5 Mg)) 1 neb INH RT.[id number] AWAKE [facility] Last Admin: 05/18/18 06:08 Dose: 1 neb Atorvastatin Calcium (Lipitor*) 10 mg PO 2100 [facility] Last Admin: 05/17/18 21:19 Dose: 10 mg Benzonatate (Tessalon Cap*) 100 mg PO BID PRN PRN Reason: COUGH Last Admin: 05/17/18 19:36 Dose: 100 mg Codeine Sulfate (Codeine Tab*) 15 mg PO Q4H PRN PRN Reason: cough Last Admin: 05/17/18 21:19 Dose: 15 mg Dextrose (D50w Syringe 50 Ml*) 12.5 gm IV PUSH .FOR FS < 60 - SS PRN PRN Reason: FS < 60 Dulaglutide (Trulicity (Nf)) 0.75 mg SUBCUT Q7D [facility] Last Admin: 05/17/18 15:05 Dose: Not Given Fenofibrate (Tricor(Nf)) 145 mg PO DAILY [facility]; Protocol Last Admin: 05/18/18 08:18 Dose: 145 mg Guaifenesin (Mucinex*) 600 mg PO BID [facility] Last Admin: 05/18/18 08:18 Dose: 600 mg Heparin Sodium (Porcine) (Heparin Vial(*)) 5,000 units SUBCUT Q8HR [facility] Last Admin: 05/18/18 05:37 Dose: 5,000 units Piperacillin Sod/Tazobactam (Sod 3.375 gm/ Sodium Chloride) 100 mls @ 25 mls/ hr IVPB Q8H [facility] Last Admin: 05/18/18 05:28 Dose: 25 mls/hr Insulin Glargine (Lantus(*)) 44 units SUBCUT QAM [facility] Last Admin: 05/18/18 08:16 Dose: 44 units Insulin Glargine (Lantus(*)) 22 units SUBCUT QPM [facility] Insulin Human Lispro (Humalog*) 0 units SUBCUT ACHS [facility]; Protocol Last Admin: 05/18/18 08:17 Dose: 9 units Insulin Human Lispro (Humalog*) 24 units SUBCUT AC [facility] Last Admin: 05/18/18 08:17 Dose: 24 units Methylprednisolone Sodium Succinate (Solu-Medrol 40 Mg) 40 mg IV Q8H [facility] Last Admin: 05/18/18 08:17 Dose: 40 mg Mirtazapine (Remeron Tab*) 15 mg PO BEDTIME PRN PRN Reason: SLEEP Last Admin: 05/18/18 00:28 Dose: 15 mg Nicotine (Nicotine Patch 21 Mg/24 Hr*) 1 patch TRANSDERM DAILY [facility] Last Admin: 05/18/18 08:16 Dose: 1 patch (Suvorexant [ (Belsomra] 10 Mg)) 10 mg PO BEDTIME PRN PRN Reason: INSOMNIA Nystatin (Nystatin Suspension*) 500,000 units SWISH SPIT QID [facility] Stop: 05/23/18 10:01 Last Admin: 05/18/18 08:18 Dose: 500,000 units Omeprazole (Prilosec Cap*) 20 mg PO BID [facility] Last Admin: 05/18/18 08:18 Dose: 20 mg Pharmacy Consult (Zosyn Per Pharmacy*) 1 note FOLLOW UP .ZOSYN PER PHARMACY [facility] Pharmacy Profile Note (Nicotine Patch Removal Note*) 1 note PATCH OFF 2100 [facility] Last Admin: 05/17/18 21:24 Dose: 1 note Vital Signs - 8 hr 05/18/18 05/18/18 05/18/18 02:49 03:09 03:11 Temperature 97.6 F Pulse Rate 102 92 Respiratory 20 22 18 Rate Blood Pressure 130/69 (mmHg) O2 Sat by Pulse 92 93 Oximetry 05/18/18 05/18/18 06:08 07:11 Temperature 98.0 F Pulse Rate 87 90 Respiratory 20 18 Rate Blood Pressure 136/81 (mmHg) O2 Sat by Pulse 98 95 Oximetry Oxygen Devices in Use Now: Nasal Cannula Result Diagrams: 05/18/18 07:42 05/18/18 07:42 Additional Lab and Data: Lab Results 05/15/18 05/15/18 05/15/18 Range/Units 18:38 18:38 18:38 WBC 12.4 H (3.5-10.8) 10^3/ul RBC 4.91 (4.00-5.40) 10^6/ul Hgb 14.8 (14.0-18.0) g/dl Hct 44 (42-52) % MCV 90 (80-94) fL MCH 30 (27-31) pg MCHC 34 (31-36) g/dl RDW 15 (10.5-15) % Plt Count 180 (150-450) 10^3/ul MPV 8.0 (7.4-10.4) um3 Neut % (Auto) 80.7 (38-83) % Lymph % (Auto) 11.1 L (25-47) % Izard % (Auto) 6.6 (0-7) % Eos % (Auto) 1.0 (0-6) % Baso % (Auto) 0.6 (0-2) % Absolute Neuts (auto) 10.0 H (1.5-7.7) 10^3/ul Absolute Lymphs (auto) 1.4 (1.0-4.8) 10^3/ul Absolute Monos (auto) 0.8 (0-0.8) 10^3/ul Absolute Eos (auto) 0.1 (0-0.6) 10^3/ul Absolute Basos (auto) 0.1 (0-0.2) 10^3/ul Absolute Nucleated RBC 0 10^3/ul Nucleated RBC % 0 Sodium 133 L (135-145) mmol/L Potassium TNP Chloride 99 L (101-111) mmol/L Carbon Dioxide 28 (22-32) mmol/L Anion Gap 6 (2-11) mmol/L BUN 15 (6-24) mg/dL Creatinine 0.92 (0.67-1.17) mg/dL Est GFR ( Amer) 103.0 (>60) Est GFR (Non-Af Amer) 85.1 (>60) BUN/Creatinine Ratio 16.3 (8-20) Glucose 257 H (70-100) mg/dL Lactic Acid 1.0 (0.5-2.0) mmol/L Calcium 9.1 (8.6-10.3) mg/dL Total Bilirubin 0.50 (0.2-1.0) mg/dL AST TNP ALT 58 H (7-52) U/L Alkaline Phosphatase 63 (34-104) U/L Troponin I 0.00 (<0.04) ng/mL C-Reactive Protein 32.45 H (<8.01) mg/L B-Natriuretic Peptide ( - 100) pg/mL Total Protein 6.5 (6.4-8.9) g/dL Albumin 3.6 (3.2-5.2) g/dL Globulin 2.9 (2-4) g/dL Albumin/Globulin Ratio 1.2 (1-3) 05/15/ Range/Units 18:38 WBC (3.5-10.8) 10^3/ul RBC (4.00-5.40) 10^6/ul Hgb (14.0-18.0) g/dl Hct (42-52) % MCV (80-94) fL MCH (27-31) pg MCHC (31-36) g/dl RDW (10.5-15) % Plt Count (150-450) 10^3/ul MPV (7.4-10.4) um3 Neut % (Auto) (38-83) % Lymph % (Auto) (25-47) % Izard % (Auto) (0-7) % Eos % (Auto) (0-6) % Baso % (Auto) (0-2) % Absolute Neuts (auto) (1.5-7.7) 10^3/ul Absolute Lymphs (auto) (1.0-4.8) 10^3/ul Absolute Monos (auto) (0-0.8) 10^3/ul Absolute Eos (auto) (0-0.6) 10^3/ul Absolute Basos (auto) (0-0.2) 10^3/ul Absolute Nucleated RBC 10^3/ul Nucleated RBC % Sodium (135-145) mmol/L Potassium Chloride (101-111) mmol/L Carbon Dioxide (22-32) mmol/L Anion Gap (2-11) mmol/L BUN (6-24) mg/dL Creatinine (0.67-1.17) mg/dL Est GFR ( Amer) (>60) Est GFR (Non-Af Amer) (>60) BUN/Creatinine Ratio (8-20) Glucose (70-100) mg/dL Lactic Acid (0.5-2.0) mmol/L Calcium (8.6-10.3) mg/dL Total Bilirubin (0.2-1.0) mg/dL AST ALT (7-52) U/L Alkaline Phosphatase (34-104) U/L Troponin I (<0.04) ng/mL C-Reactive Protein (<8.01) mg/L B-Natriuretic Peptide 75 ( - 100) pg/mL Total Protein (6.4-8.9) g/dL Albumin (3.2-5.2) g/dL Globulin (2-4) g/dL Albumin/Globulin Ratio (1-3) Microbiology and Other Data: Microbiology 05/15/18 20:17 Aerobic Blood Culture - Preliminary Blood Venous No Growth Day 2 Anaerobic Blood Culture - Preliminary No Growth Day 2 05/15/18 18:38 Aerobic Blood Culture - Preliminary Blood Venous No Growth Day 2 Anaerobic Blood Culture - Preliminary No Growth Day 2 Diagnostic Imaging: Patient Name: ANGEL CHU Medical Record#: [id number] Ordering Physician: Gissell Mullen MD Acct.#: [id number] : 1960 Age: 57 Sex: M Location: [address] [place] [address] - MEDICAL Exam Date: 05/15/182113 ADM Status: ADM IN Order Information: CTA CHEST Accession Number: [id number] CPT: 31390 EXAM: CT Angiography Chest With Intravenous Contrast EXAM DATE/TIME: 05/15/2018 10:24 PM CLINICAL HISTORY: 57 years old, male; Signs and symptoms; Cough and shortness of breath; Additional info: Cough, ? pneumomediastinum, SOB, copd, ? pneumonia TECHNIQUE: Axial computed tomographic angiography images of the chest with intravenous contrast using CT angiography protocol. All CT scans at this facility use at least one of these dose optimization techniques: automated exposure control; mA and/or kV adjustment per patient size (includes targeted exams where dose is matched to clinical indication); or iterative reconstruction. Coronal and sagittal reformatted images were created and reviewed. MIP reconstructed images were created and reviewed. CONTRAST: 76 ml of VISIPAQUE 320 administered intravenously. COMPARISON: CHEST W CT CHEST W 04/30/2015 9:05 AM FINDINGS: Pulmonary arteries: Pulmonary arteries are well opacified to the subsegmental branches. Normal caliber main pulmonary artery. No filling defects throughout the pulmonary artery tree. Aorta: Normal caliber aorta with no evidence of dissection or rupture. Lungs: Consolidation posterior basal segment and medial basal segments left lower lobe. Remaining lungs are clear. Pleural space: Normal. No pneumothorax. No pleural effusion. Heart: Normal. No cardiomegaly. No pericardial effusion. Thyroid: Low attenuated nodule left thyroid measures 0.7 cm (series 2, image 13) not seen previously. No additional thyroid nodules. Bones/joints: The thoracic spine demonstrates mild degenerative changes at multiple levels. No fractures. No suspicious bone lesions. Soft tissues: Normal. Lymph nodes: Normal. No enlarged lymph nodes. IMPRESSION: 1. Left lower lobe pneumonia. 2. No pulmonary emboli. 3. Right thyroid nodule. ACR White Paper guidelines (Christopher MachadoK, et al. JACR 2015;12(2):143-50) suggest that no follow-up is necessary. COMMENT: Consistent with the [employer]'s Incidental Findings Committee Report (J Am Helen Radiol 2014): Unless the patient's specific This report is only to be considered final once signed by the Provider(s) as displayed in the "<Electronically Signed by >" field (s). Absence of a signature indicates the report is in a draft status and still needs to be finalized. In the event this document was created by someone other than the signing Provider, the individual initiating the document will be listed in the "Entered by:" or "Dictated by:" schaefer. 1 of 2 Assess/Plan/Problems-Billing Assessment: This is a 57 year old man with recent COPD exacerbation, now admitted with LLL PNA. - Patient Problems (1) Left lower lobe pneumonia Current Visit: Yes Status: Acute Code(s): J18.1 - LOBAR PNEUMONIA, UNSPECIFIED ORGANISM SNOMED Code(s): 091145906 Comment: - With hypoxic respiratory failure - CTA of chest: (-)PE; (+)LLL PNA; incidental Right thyroid nodule, per radiologist, no F/U necessary - Continue zosyn -Blood Cx: (-)x1 day - Continue solumedrol, nebs, tessalon and mucinex, and flutter valve with nebs - Titrate and wean O2 requirement (2) COPD exacerbation Current Visit: No Status: Acute Code(s): J44.1 - CHRONIC OBSTRUCTIVE PULMONARY DISEASE W (ACUTE) EXACERBATION SNOMED Code(s): 537677095 Comment: -Pt mentions he does not use O2 at home - Appreciate Dr. Mcguire input - Continue Solumedrol and nebs - Patient should quit smoking indefinitely (3) Depression Current Visit: No Status: Acute Code(s): F32.9 - MAJOR DEPRESSIVE DISORDER, SINGLE EPISODE, UNSPECIFIED SNOMED Code(s): 76878309 Comment: - Continue mirtazapine (4) Diabetes Current Visit: No Status: Acute Code(s): E11.9 - TYPE 2 DIABETES MELLITUS WITHOUT COMPLICATIONS SNOMED Code(s): 32658018 Comment: - Uncontrolled -Given Wt of >100Kg, will increase insulin needs and divide to BID - Patient wishes to follow up with Dr. Wang outpatient and has appointment on Sunday - Counseled on reducing carbs in his diet, no soda and no juice especially while on steroids (5) DVT prophylaxis Current Visit: No Status: Acute Code(s): LFE3911 - SNOMED Code(s): 553343270 Comment: -Continue Heparin SQq8H Status and Disposition: -As above
[2018-05-18] MEDS ORDERED: Insulin GLARGINE(*) 1 UNITS UNIT SUBCUT SCH ×2 (09:00→18:00)
[2018-05-18 11:21] VITALS: BP 147/84
--- NOTE | 2018-05-18 14:18 | DS ---
CC: Dr. Griffin; Dr. Gissell Mullen; Dr. Ni Stanton; Dr. Astrid Rasmussen; Dr. Wang. DISCHARGE SUMMARY: DATE OF ADMISSION: DATE OF DISCHARGE: 05/18/18 DISCHARGE DIAGNOSES: As follows: 1. Left lower lobe pneumonia. 2. Chronic obstructive pulmonary disease exacerbation secondary to #1. 3. Depression. 4. Diabetes, uncontrolled, likely due to steroid use due to chronic obstructive pulmonary disease exacerbation. DISCHARGE MEDICATIONS: As follows: 1. Albuterol nebulization as per his request 2.5 mg inhalation q.2 hours p.r.n. and as per his request he also wanted to refill his albuterol inhaler 1 puff inhalation q.6 p.r.n. 2. Atorvastatin 10 mg p.o. daily. 3. Benzonatate 100 mg p.o. b.i.d. p.r.n. 4. Fenofibrate 145 mg p.o. daily. 5. Insulin glargine 22 units subcu q.p.m. and 44 units subcu q.a.m. 6. Nicotine patch 1 patch transdermally daily. 7. Nystatin swish and spit 500,000 units four times daily for 14 days. 8. Omeprazole cap 20 mg p.o. b.i.d. 9. Suvorexant 10 mg p.o. daily. 10. Doxycycline 100 mg p.o. b.i.d. for 8 more days. 11. Trulicity 0.75 mg subcu weekly. 12. Robitussin DM 10 mL p.o. q.6 p.r.n. 13. Insulin aspart 24 units subcu q.a.c. 14. Floranex 1 tab p.o. daily for 12 days. 15. Lisinopril/HCTZ 10/12.5 mg p.o. daily. 16. Mirtazapine 45 mg p.o. daily. 17. Prednisone rapid taper. 18. The patient had been prescribed Spiriva 1 cap inhalation daily. HISTORY OF PRESENT ILLNESS/HOSPITAL COURSE: The patient is 57-year-old gentleman with history of diabetes mellitus type 2, hypertension and COPD, who presented on 05/15/18 to the ED due to shortness of breath and was subsequently found to have left lower lobe pneumonia. The patient was then subsequently placed on Zosyn and on the day of discharge today, blood cultures have so far been negative for 2 days. The patient has been doing well and overnight, the patient became agitated and was very rude and threatening the staff with violence because he mentioned that he does not want to have his diet controlled and he mentions that Dr. Wang, his special projects coordinator, has not even prescribed consistent carbohydrate diet for him and he is surprised while he is hospitalized that he is on a consistent carb diet. Any form of rational explanation was rejected by the patient and the patient clearly wanted to go home today. I have informed him that he can be discharged and the patient did have an ambulatory saturation done and he is shown to require to 3 L of oxygen by nasal cannula and none at rest prior to discharge. This has already been set up for him prior to his discharge. He was advised to finish his antibiotic therapy as prescribed. We have made some adjustments to his insulin, but we will defer to him on this note given he has been very noncompliant while he has been hospitalized. He mentions that he knows that the steroids can further increase his blood sugars and any attempt for us to change his insulin is met with resistance from the patient. The patient clearly has splitting of issues in regards to practitioners and hence we will defer to Dr. Wang on the matter on followup. He had been advised to follow up and/or call his PCP within 3 days post discharge. He was advised once again that part of his diabetes therapy is to control his diet much less his weight. He was advised to talk to Dr. Wang honestly regarding how important diet is in diabetic management on followup. He was advised to wear 3 L of O2 by nasal cannula during exertion. He is asked to avoid heavy lifting or overexertion to the point of fainting until he has been reevaluated by his PCP. If his symptoms resume or develop new ones or feel unwell for any reason, he was advised to call his PCP and if his PCP is unable to entertain him due to scheduling issues alone, he was advised to call [facility] if the issue is considered nonemergent. He was advised to call my office regarding any questions, concerns, or further clarifications regarding his discharge plans and/or prescriptions and he was advised to take his medications as prescribed. REVIEW OF SYSTEMS: The patient denied any current headaches, dizziness, fevers , chills, nausea, vomiting, chest pain, shortness of breath, increased coughing or sputum production, abdominal pain, diarrhea, constipation, pain and/or increased frequency of urination, myalgias, arthralgias, throat pain, or new skin lesions. The rest of the 14-point review of systems is otherwise unremarkable. PHYSICAL EXAMINATION: Reveals the most recent vital signs of record with saturating at 95% on room air, 99 beats per minute heart rate, blood pressure of 136/81. General Appearance: The patient is awake, alert, and oriented x3, obese. HEENT: Normocephalic, atraumatic. PERRLA. Extraocular muscles intact. Negative for icterus. Moist oral mucosa. Negative for throat erythema. Neck is soft, supple with no cervical lymphadenopathy. Heart: S1, S2 within normal limits. Regular rate and rhythm. No murmurs, rubs, or gallops. Chest: Positive crackles in the left lower lobe. No rales or rhonchi appreciated. Abdomen is soft, nondistended, nontender. Normoactive bowel sounds x4 quadrants. Extremities: No cyanosis, clubbing, or edema. Psychiatric: No active psychosis, depression, suicidal or homicidal ideation; the patient has very labile mood. Skin is warm to touch. TIME SPENT: The total time spent evaluating the patient, reviewing pertinent data, and appropriate documentation is 50 minutes. [id number]/[facility] #: [id number] [facility] HOSPITALAlfredo
== END 2018-05-18 12:00 | disposition home or self-care (01) | DRG 193 ==
LOC: ED 15:59 → MED 22:21
PROVIDERS: ADMIT Internal Medicine; ATTEND Student in an Organized Health Care Education/Training Program
DX: J18.1 Lobar pneumonia, unspecified organism (principal); J96.01 Acute respiratory failure with hypoxia; J44.1 Chronic obstructive pulmonary disease with (acute) exacerbation; J44.0 Chronic obstructive pulmonary disease with (acute) lower respiratory infection; E87.1 Hypo-osmolality and hyponatremia; F32.9 Major depressive disorder, single episode, unspecified; E11.65 Type 2 diabetes mellitus with hyperglycemia; E66.01 Morbid (severe) obesity due to excess calories; I10 Essential (primary) hypertension; K21.9 Gastro-esophageal reflux disease without esophagitis; F17.210 Nicotine dependence, cigarettes, uncomplicated; F43.10 Post-traumatic stress disorder, unspecified; Z91.11 Patient's noncompliance with dietary regimen; Z87.820 Personal history of traumatic brain injury; Z79.4 Long term (current) use of insulin; Z79.891 Long term (current) use of opiate analgesic; Z79.52 Long term (current) use of systemic steroids; Z79.899 Other long term (current) drug therapy; Z80.6 Family history of leukemia; Z80.1 Family history of malignant neoplasm of trachea, bronchus and lung; Z68.39 Body mass index [BMI] 39.0-39.9, adult; E86.0 Dehydration
CPT/HCPCS: 36415; 71045; 71046; 71275; 80048; 80053; 82947; 83605; 83735; 83880; 84100; 84145; 84484; 85025; 85027; 86140; 87040; 93005; 94640; 99284; A9270-GY; J1644; J2060; J2543; J2920; J2930; Q9967

== ENCOUNTER 2018-06-30 16:46 | Emergency (ER) | payer MEDICARE, OTHER ==
[2018-06-30 17:16] VITALS: BP 146/79
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
[2018-06-30] MEDS ORDERED: HYDROcodone/ACETAMIN 5-325 MG* 1 TAB PO ONE (17:37)
== END 2018-06-30 17:53 | disposition home or self-care (01) ==
LOC: UCCORT 16:46
DX: M75.51 Bursitis of right shoulder (principal); Z88.6 Allergy status to analgesic agent; I10 Essential (primary) hypertension; Z87.891 Personal history of nicotine dependence
CPT/HCPCS: 99212; G0463

== ENCOUNTER 2018-08-13 06:55 | Day surgery (SDC) | payer MEDICARE, OTHER ==
[~2018-08-13 06:55] MED LIST: Buffered Lidocaine 1% SYRIN* 1 ML/SYRINGE INTRADERM ONE; Famotidine IV* 10 MG/ML 2 ML (20 mg) IV ONE; Lactated Ringers 1000 ML Bag* 1,000 ML IV SCH; Metoclopramide IV* 5 MG/ML 2 ML VIAL IV SLOW PU ONE
[2018-08-13] MEDS ORDERED: Metoclopramide IV* 5 MG/ML 2 ML VIAL ONE (07:47)
[2018-08-13] MEDS ORDERED: Famotidine IV* 10 MG/ML 2 ML (20 mg) ONE (07:47)
[2018-08-13] MEDS ORDERED: ceFAZolin 2 GM PREMIX in ORs 2 GM/50 ML BAG IVPB ONE (07:48)
[2018-08-13] MEDS ORDERED: Midazolam* 1 MG/ML 2 ML VIAL (2 MG) ONE (08:14)
[2018-08-13] MEDS ORDERED: fentaNYL* 50 MCG/ML 2 ML VIAL (100 MCG VIAL) ONE ×5 (08:14→12:53)
[2018-08-13] MEDS ORDERED: Rocuronium* 10 MG/ML VIAL ONE (08:17)
[2018-08-13] MEDS ORDERED: Sugammadex * 200 MG/2 ML VIAL IV PUSH ONE (08:17)
[2018-08-13] MEDS ORDERED: Bacitracin IV* 50,000 UNITS INJ ONE (08:43)
[2018-08-13] MEDS ORDERED: Lidocain 1% EPI 1:100,000 * 30 ML MDV ONE (08:43)
[2018-08-13] MEDS ORDERED: Thrombin 5,000 UNITS* 1 APPLIC KIT - topical use - TOPICAL ONE (08:43)
[2018-08-13] MEDS ORDERED: KETAMINE HCL* 50 MG/ML 10 ML VIAL ONE (08:49)
[2018-08-13] MEDS ORDERED: Levalbuterol 1.25MG/0.5ML NEB ONE (08:57)
[2018-08-13] MEDS ORDERED: Levalbuterol 1.25MG/0.5ML NEB INH ONE (08:57)
[2018-08-13] MEDS ORDERED: Insulin LISPRO* 1 UNITS UNIT SUBCUT ONE ×3 (08:58→12:27)
[2018-08-13] MEDS ORDERED: Dextrose 50% Syringe 50 ML* 25 GM/50 ML SYRINGE IV PUSH PRN ×2 (08:58→12:18)
[2018-08-13] MEDS ORDERED: Esmolol* 10 MG/ML 10 ML (100 mg) ONE (09:54)
[2018-08-13] MEDS ORDERED: hydrALAZINE IV* 20 MG/ML VIAL ONE (09:54)
[2018-08-13] MEDS ORDERED: HYDROmorphone INJ1* 1 MG/ML SYRINGE IV PRN (10:31)
[2018-08-13] MEDS ORDERED: Naloxone* 0.4 MG/ML 1 ML VIAL IV PRN (10:31)
[2018-08-13] MEDS ORDERED: DiMENhydriNATE IV* 50 MG/ML VIAL IV PUSH PRN (10:31)
[2018-08-13] MEDS ORDERED: Propofol* 10 MG/ML 20 ML BTL ONE (11:10)
[2018-08-13] MEDS ORDERED: Ondansetron INJ* 2 MG/ML VIAL ONE (11:10)
[2018-08-13] MEDS ORDERED: Lidocaine 2% PF * 5 ML VIAL ONE (11:10)
[2018-08-13] MEDS ORDERED: Ondansetron INJ* 2 MG/ML VIAL IV PRN (11:27)
[2018-08-13] MEDS ORDERED: Magnesium Hydroxide LIQ* 30 ML UDC PO PRN (11:27)
[2018-08-13] MEDS ORDERED: Albuterol HFA INHALER* 8 gm MDI INH PRN (11:38)
[2018-08-13] MEDS ORDERED: Lactated Ringers 1000 ML Bag* 1,000 ML IV SCH (12:00)
[2018-08-13] MEDS: fentaNYL* 50 MCG/ML 2 ML VIAL (100 MCG VIAL) IV PRN ×3 (12:04→12:54)
[2018-08-13] MEDS: Insulin LISPRO* 1 UNITS UNIT SUBCUT SCH ×3 (12:28→22:01)
[2018-08-13] MEDS ORDERED: oxyCODONE TAB* 5 MG TAB ONE (14:30)
[2018-08-13] MEDS: Gabapentin CAP(*) 300 MG PO SCH ×2 (15:15→20:24)
[2018-08-13] MEDS: Benzocaine/Menthol LOZ* 1 LOZENGE PO PRN ×2 (15:15→23:39)
--- NOTE | 2018-08-13 15:53 | CONS ---
CC: Dr. Astrid Rasmussen * CONSULTATION REPORT: DATE OF CONSULT: 08/13/17 PRIMARY CARE PROVIDER: Dr. Astrid Rasmussen. REQUESTING PHYSICIAN IN CONSULT: Dr. Diamond. ATTENDING PHYSICIAN: Dr. Castrejon; dictated by Ramy Crain NP. REASON FOR CONSULT: Co-medical management of COPD, diabetes, hypertension, GERD , sleep apnea. HISTORY OF PRESENT ILLNESS/HOSPITAL COURSE: The patient presented today for ACDF of C5 through C6 and C6 through C7. Mr. Ozuna is a 57-year-old male with a past medical history significant for COPD, diabetes type 2, hypertension , GERD, sleep apnea. PAST MEDICAL HISTORY: 1. COPD. 2. Diabetes type 2. 3. History of pancreatitis secondary to hypertriglyceridemia. 4. Hypertension. 5. GERD. 6. PTSD. 7. Traumatic brain injury in 2004. 8. 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 Sleep apnea that the patient is noncompliant with CPAP machine. PAST SURGICAL HISTORY: No past surgical history. HOME MEDICATIONS: 1. Anoro 62.5/25 mcg 1 puff every morning. 2. Albuterol 90 mcg as needed. 3. Insulin glargine 100 units/mL, 60 units in the morning subcu. 4. Vitamin D 1000 units 2 tabs per day. 5. Eszopiclone 3 mg 1 tab at nighttime. 6. HCTZ 12.5/lisinopril 10 mg 2 tabs every morning. 7. Atorvastatin 80 mg half a tablet at night. 8. Dulaglutide 0.75 mg/0.5 mL pen once weekly. 9. Insulin aspart, NovoLog FlexPen with meals. 10. Omeprazole 20 mg 2 times per day. 11. Mirtazapine 45 mg at night. 12. Fenofibrate 48 mg 1 per day. 13. Nitro patch . Temporary meds include: 1. Gabapentin 300 mg 2 every 8 hours. 2. Skelaxin 800 mg 1 every 8 hours. 3. Oxycodone/acetaminophen 10/325 mg 1.5 every 6 hours as needed. ALLERGIES: The patient is allergic to DARVOCET. FAMILY HISTORY: Mother is due to lung cancer. Father is due to leukemia. SOCIAL HISTORY: The patient has a history of smoking 1 to 2 packs per day. He started when he was 13 years old and he quit in April 2018. He denies alcohol or drug use. 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 He is a full code and his surrogate decision maker is his , Brisa Rm. REVIEW OF SYSTEMS: The patient reports pain in his neck and back is well controlled. The patient denies chest pain, shortness of breath, palpitations, nausea, fever, chills. A 12-point review of systems was completed and all others were negative. PHYSICAL EXAM: General: Mr. Ozuna is sitting in the bed in PACU. He does not appear to be in any acute distress. Bandage to his anterior neck on right side is intact. SALO drain is in place. Appears stated age. Vital Signs: Temp 97.9 , HR 106, RR 16, O2 sats 93% on 4 L, BP is 150/85. ENT: PERRLA. EOMs intact. Sclerae without icterus. External ears and nose within normal limits. Oral mucosa is moist without lesions. Neck: Supple. Respiratory: Symmetrical chest expansion. No accessory muscle use. Lungs are clear to auscultation. CV: Regular rate and rhythm. S1, S2 present. No murmurs, rubs, or gallops. Extremities: Skin is warm and smooth bilaterally. No edema. No clubbing or cyanosis. Pedal pulses 2+ bilaterally. Musculoskeletal: Full range of motion. No deformities. Abdomen: Soft, nontender to palpation. Bowel sounds x4. Neuro : The patient is awake, alert and oriented x4. Motor strength is 5/5 in upper and lower extremities. He denies numbness or tingling. Skin: Grossly intact without lesions. Dressing to anterior neck is clean, dry, and intact. ASSESSMENT AND PLAN: Mr. Ozuna is a 57-year-old male with a past medical history significant for chronic obstructive pulmonary disease, diabetes type 2, hypertension, sleep apnea; who presented today for surgery with Dr. Diamond. We were asked to consult due to the patient's medical history. The recommendations as follows: 1. Status post anterior cervical diskectomy and fusion C5 through C6 and C6 through C7; I will defer management of this to the neurosurgical team. 2. Chronic obstructive pulmonary disease: I agree with the ordered albuterol nebulizers and albuterol inhaler as needed. 3. Type 2 diabetes: Due to the patient's surgery and uncontrolled diabetes as his most recent hemoglobin A1c was 11. We will be watching his blood sugars closely with a goal of blood sugar less than 200. I have ordered fingersticks q.4 hours with a subsequent sliding scale q.4 hours. I have also continued the patient's home medications, but at a slightly lower dose due to 's report of some hypoglycemic episodes this week due to not eating very much due to pain. I have decreased his long-acting to 40 units in the morning. I have also decreased his NovoLog insulin t.i.d. a.c. from 30 units to 15 units. We will continue to monitor routinely. I have educated the patient on signs and symptoms of hypoglycemia and when to contact the nurse. For the record, the patient's reports that he is symptomatic if he is less than 100. This will require close monitoring. 4. Hypertension: The patient is currently hypertensive and slightly tachycardic. I have a feeling this is due to his postop state. The neurosurgical PA has reordered the patient's lisinopril/HCTZ for tomorrow morning. At this point, I think that is fine, but I will readjust tonight as I do not want him to be hypotensive. 5. Gastroesophageal reflux disease: We will continue the patient's omeprazole as previously prescribed. 6. Sleep apnea: The patient is noncompliant with a CPAP machine. I have discussed with him and his the importance of compliance. Due to this, I have ordered an overnight pulse oximetry on the patient. It should be noted that he is on 4 L currently to maintain O2 sat. Therefore, it is very important that we monitor this closely. 7. FEN: The ortho team has ordered a regular diet as tolerated. 8. DVT prophylaxis: The patient is not currently on DVT prophylaxis. I would suggest SCDs and ambulation when he tolerates. 9. Code status: The patient is a full code. 10. Surrogate decision maker: As previously mentioned, his surrogate decision maker is his , Brisa Rm. TIME SPENT: Thirty-five minutes was spent on this consultation, greater than half the time was spent [id number] with the patient and the caregiver obtaining my history and performing a physical exam and reviewing my plan of care. The case has been reviewed with my attending, Dr. Castrejon, who agreed with my plan of care. RAMY CRAIN, VARYING EXCEPTIONALITIES TEACHER [id number]/[facility] #: [id number] [place]
[2018-08-13] MEDS: Metaxalone TAB* 800 MG PO SCH ×2 (16:24→22:00)
[2018-08-13] MEDS ORDERED: Insulin LISPRO* 1 UNITS UNIT SUBCUT SCH (16:30)
[2018-08-13] MEDS: Acetaminophen TAB* 325 MG PO PRN (17:54)
[2018-08-13] MEDS: Pantoprazole TAB * 40 MG TAB PO SCH (20:24)
[2018-08-13] MEDS ORDERED: Atorvastatin* 80 MG TAB PO SCH (21:00)
[2018-08-13] MEDS ORDERED: QUEtiapine TAB* 100 MG PO SCH (21:00)
[2018-08-13] MEDS ORDERED: Mirtazapine TAB* 15 MG PO SCH (21:00)
[2018-08-13] MEDS ORDERED: Nicotine PATCH 21 MG/24 HR* PATCH TRANSDERM SCH (21:00)
[2018-08-13] MEDS: Albuterol 2.5 MG/3 ML NEB.SOL* (0.083%) INH PRN (22:13)
[2018-08-13] MEDS ORDERED: hydrALAZINE IV* 20 MG/ML VIAL IV SLOW PU PRN (22:53)
[2018-08-13] MEDS: oxyCODONE TAB* 5 MG TAB PO PRN (23:25)
[2018-08-13] MEDS ORDERED: Metoprolol Tartrate IV* 1 MG/ML 5 ML VIAL IV ONE (23:53)
[2018-08-13] MEDS ORDERED: Metoprolol Tartrate IV* 1 MG/ML 5 ML VIAL ONE (23:55)
[2018-08-14] MEDS: Acetaminophen TAB* 325 MG PO PRN (02:31)
[2018-08-14] MEDS: oxyCODONE TAB* 5 MG TAB PO PRN ×2 (05:37→09:45)
[2018-08-14] MEDS: Albuterol 2.5 MG/3 ML NEB.SOL* (0.083%) INH PRN (06:03)
[2018-08-14] MEDS ORDERED: Insulin LISPRO* 1 UNITS UNIT SUBCUT SCH ×3 (07:30)
[2018-08-14 08:32] LABS: ABS Basophils 0 10^3/ul (0-0.2); ABS Eosinophils 0.1 10^3/ul (0-0.6); ABS Lymphocytes 1.3 10^3/ul (1.0-4.8); ABS Monocytes 0.8 10^3/ul (0-0.8); ABS Neutrophils 7.4 10^3/ul (1.5-7.7); ABS Nucleated RBC 0 10^3/ul; Eosinophil % 0.6 %; Hematocrit 43 % (42-52); Hemoglobin 14.3 g/dl (14.0-18.0); Mean Corpuscular HGB Conc 33 g/dl (31-36); Mean Corpuscular Hemoglobin 29 pg (27-31); Mean Corpuscular Volume 88 fL (80-94); Mean Platelet Volume 8.1 fL (7.4-10.4); Nucleated Red Blood Cells % 0; Platelet Count 154 10^3/ul (150-450); Red Blood Count 4.91 10^6/ul (4.00-5.40); Red Cell Distribution Width 15 % (10.5-15); White Blood Count 9.6 10^3/ul (3.5-10.8)
[2018-08-14] MEDS ORDERED: Insulin GLARGINE(*) 1 UNITS UNIT SUBCUT SCH ×2 (09:00)
[2018-08-14] MEDS ORDERED: Lisinopril/HCTZ 10/12.5(NF) TAB PO SCH (09:00)
[2018-08-14] MEDS ORDERED: Lisinopril TAB* 10 MG PO SCH (09:00)
[2018-08-14] MEDS ORDERED: Hydrochlorothiazide TAB* 25 MG PO SCH (09:00)
[2018-08-14] MEDS ORDERED: CMC:Fenofibrate(NF) 145 MG TAB PO SCH (09:00)
[2018-08-14] MEDS ORDERED: Umeclidin/Vilant 62.5 MDI 62.5/25 mcg 14 INH ELLIPTA DEVICE INH SCH (09:00)
--- NOTE | 2018-08-14 09:01 | OP ---
DATE OF OPERATION: 08/13/18 - ROOM #340 DATE OF : 62 PRIMARY SURGEON: Dr. John Diamond. INFORMATION ASSURANCE ENGINEER: FUENTES Hammond. ANESTHESIA: General. PRE-OP DIAGNOSES: 1. Herniated nucleus pulposus, C6-7 on the right. 2. Cervical spondylosis, C5-6. POST-OP DIAGNOSES: 1. Herniated nucleus pulposus, C6-7 on the right. 2. Cervical spondylosis, C5-6. OPERATIVE PROCEDURE: Anterior cervical diskectomy and fusion, C5-6 and C6-7, with placement of biomechanical devices at C5-6, C6-7 with anterior instrumentation. DESCRIPTION OF PROCEDURE: After satisfactory general anesthesia was obtained, the patient was placed on the operating table in the supine position with the head supported on a horseshoe headrest and the neck maintained in neutral. The anterior aspect of the cervical spine was then clipped, prepped, and draped in a sterile manner for anterior cervical exposure and a skin incision localized over the C6 vertebral body with the assistance of a underwriting specialist x-ray. This incision began at the midline and extended to the right side for a distance of 3 cm. This incision was infiltrated with 1% Xylocaine with epinephrine, after which it was turned down sharply through the subcutaneous tissues. A superiorly and inferiorly based subcutaneous flap was then fashioned and the platysmal muscle divided along the direction of its fibers. Utilizing a combination of sharp and blunt dissection, the dissection was carried down to the anterior aspect of the spine. An additional radiograph was obtained, verifying localization of the C5-6 interspace, after which the initial step of the procedure was done at the C6-7 level. The attachment of the longus colli muscle was taken down and a self-retaining retractor was placed to facilitate exposure. The anterior two- thirds of disk material was removed from this level utilizing a combination of the Midas Alex drill, angled curettes, and pituitary rongeurs. [place] distractor pins were then placed in the C6 and C7 vertebral bodies and gentle disk space distraction applied. At this point in the procedure, the operating microscope was brought into the field and the remainder of the procedure done under microscopic visualization. Projecting back posteriorly at this level was a subcapsular disk herniation. There were disk fragments going out with the C7 nerve root on the right side. These were dissected free and removed. The dissection was carried back until normal dura was encountered. At the conclusion of the decompression, a nerve hook ran readily with both C7 nerve roots. The interspace was then prepared for receipt of a 9 mm PEEK graft filled with bony matrix and slightly countersunk. Attention was then directed to the C5-6 level, where there was a large anterior osteophyte present. The osteophyte and anterior two-thirds of disk material were removed with the combination of the Midas Alex drill, angled curettes, and pituitary rongeurs. [place] distractor pins were then placed in the C5 and C6 vertebral bodies and gentle disk space distraction applied. The operating microscope was used to decompress this level. The pathology at this level was predominantly a spur coming out both the inferior lip of C5 and the superior aspect of C6. This spur was decompressed utilizing a combination of the Midas Alex drill, 1 and 2 mm [place] rongeurs. The dissection was carried back until normal dura was encountered. At the conclusion of the decompression, both C6 nerve roots were noted to be free in their course. This interspace accepted a 7 mm PEEK graft filled with bony matrix which was slightly countersunk. A JoinTVtronic ZEVO plate was then selected to span from C5 to C7 and was secured into position with 13 mm screws, 2 each in the C5, C6 and C7 vertebral bodies. The wound was then thoroughly irrigated, after which a drain was placed in the prevertebral space and tunneled out toward the right side. The subcutaneous tissues were then reapproximated with 3-0 Vicryl and the skin closed with Steri-Strips. The estimated blood loss was less than 50 cc and the final sponge, padding and needle counts were correct. The patient was taken to the recovery room, extubated and in stable condition. [id number]/[facility] #: [id number] [place]
[2018-08-14] MEDS: Metaxalone TAB* 800 MG PO SCH (09:10)
[2018-08-14] MEDS: Gabapentin CAP(*) 300 MG PO SCH (09:10)
[2018-08-14 09:14] LABS: Albumin 3.7 g/dL (3.2-5.2); Albumin/Globulin Ratio 1.1 (1-3); Calcium 9.5 mg/dL (8.6-10.3); EGFR Non-African American 88.4 (>60); Globulin 3.4 g/dL (2-4); Potassium 4.3 mmol/L (3.5-5.0); Total Bilirubin 0.7 mg/dL (0.2-1.0); Total Protein 7.1 g/dL (6.4-8.9)
[2018-08-14] MEDS: Pantoprazole TAB * 40 MG TAB PO SCH (09:16)
--- NOTE | 2018-08-14 10:26 | PN ---
Progress Note - Progress Note Date of Service: 08/14/18 SOAP: Subjective: [Pt seen is morning at 0730. Feeling well, RUE pain significantly improved. Reports mild swelling sensation and numbness/tingling of RUE. Neck pain controlled with PO medication. Reports soreness with swallowing although able to swallow soft foods and liquids well. Denies feeling like neck and throat are swollen. Denies difficulty breathing, nausea and headache. Ambulating independently. ] Objective: [ Vital Signs: Temp Pulse Resp BP Pulse Ox 98.5 F 95 18 149/74 94 08/14/18 03:13 08/14/18 06:04 08/14/18 10:00 08/14/18 03:13 08/14/18 08:00 General: Sitting up in chair, NAD. Neuro: Diminished sensation to RUE persistent since pre-op. Motor normal. Incision: Drain dc today. Incision without swelling or erythema, nontender. Wound drain output 08/13/18 08/13/18 08/13/18 12:00 15:20 20:11 Output, SALO #1 15 30 20 08/14/18 04:26 Output, SALO #1 7 ] Assessment: [Satisfactory post-op] Plan: [1. Discharge home today 2. Discharge instructions discussed]
[2018-08-14 11:21] VITALS: BP 146/100
[2018-08-16] MEDS ORDERED: Dulaglutide (NF) 0.75 MG/0.5 ML SYRINGE SUBCUT SCH (09:00)
== END 2018-08-14 11:09 | disposition home or self-care (01) ==
LOC: OR 06:55 → SSU 11:27 → OR 08-14 11:09
PROVIDERS: ATTEND Neurological Surgery
DX: M50.123 Cervical disc disorder at C6-C7 level with radiculopathy (principal); M47.812 Spondylosis without myelopathy or radiculopathy, cervical region; E11.9 Type 2 diabetes mellitus without complications; Z79.4 Long term (current) use of insulin; G47.33 Obstructive sleep apnea (adult) (pediatric); I10 Essential (primary) hypertension; J44.9 Chronic obstructive pulmonary disease, unspecified; F43.10 Post-traumatic stress disorder, unspecified
CPT/HCPCS: 36415; 72020; 72040; 80053; 85025; 94640; A9270-GY; C1713; C1776; J0360; J0690; J2250; J2405; J2704; J2765; J3010; J3490

== ENCOUNTER 2019-01-03 08:56 | Day surgery (SDC) | payer MEDICARE, OTHER ==
[~2019-01-03 08:56] MED LIST changes: -Metoclopramide IV* 5 MG/ML 2 ML VIAL IV SLOW PU ONE
[2019-01-03] MEDS ORDERED: Buffered Lidocaine 1% SYRIN* 1 ML/SYRINGE INTRADERM ONE (09:15)
[2019-01-03] MEDS ORDERED: Insulin REGULAR(*) 1 UNITS UNIT ONE (10:00)
[2019-01-03] MEDS ORDERED: Ondansetron INJ* 2 MG/ML VIAL ONE (10:41)
[2019-01-03] MEDS ORDERED: Midazolam* 1 MG/ML 10 ML VIAL (10 MG) ONE (10:41)
[2019-01-03] MEDS ORDERED: KETAMINE HCL* 50 MG/ML 10 ML VIAL ONE (10:41)
[2019-01-03] MEDS ORDERED: Lidocaine 2% PF * 5 ML VIAL ONE (10:41)
[2019-01-03] MEDS ORDERED: Propofol* 10 MG/ML 20 ML BTL ONE (10:41)
[2019-01-03] MEDS ORDERED: fentaNYL* 50 MCG/ML 2 ML VIAL (100 MCG VIAL) ONE (10:41)
[2019-01-03] MEDS ORDERED: Midazolam* 1 MG/ML 2 ML VIAL (2 MG) ONE (10:43)
[2019-01-03] MEDS ORDERED: fentaNYL* 50 MCG/ML 2 ML VIAL (100 MCG VIAL) IV PRN (11:44)
[2019-01-03] MEDS ORDERED: Ondansetron INJ* 2 MG/ML VIAL IV PRN (11:44)
[2019-01-03] MEDS ORDERED: Naloxone* 0.4 MG/ML 1 ML VIAL IV PRN (11:44)
[2019-01-03 13:24] VITALS: BP 136/88
--- NOTE | 2019-01-06 03:50 | PRO ---
CC: Astrid Rasmussen MD * EGD AND COLONOSCOPY REPORT: DATE OF PROCEDURE: 01/03/19 PRIMARY CARE PHYSICIAN: Astrid Rasmussen MD INDICATION FOR PROCEDURE: Dysphagia, possible cirrhosis and history of colon polyps. PROCEDURE PERFORMED: Complete esophagogastroduodenoscopy with biopsies and complete colonoscopy to the terminal ileum with poor prep. MEDICATIONS GIVEN: Please see anesthesia service records. DESCRIPTION OF PROCEDURE: After the EGD and colonoscopy procedure including the risks, benefits, and alternatives with the risks not limited to perforation , surgery, missed lesions and/or were explained to the patient, written informed consent was obtained, IV medication was given, and a bite block was placed between the teeth. The adult Olympus gastroscope was then inserted into the patient's oropharynx into the tubular esophagus. In the tubular esophagus, there was small grade 1 esophageal varices that completely flattened with insufflation. No high risk stigmata were appreciated. I was able to take a biopsy in the mid esophagus to rule out EOE; however, the GE junction was intact. The scope was then advanced to the lower esophageal sphincter into the stomach. Direct views showed portal hypertensive gastropathy, in addition a few scattered benign appearing fundic gland polyps were appreciated. A biopsy was taken in the antrum of mild gastritis to rule out H. pylori. On retroflexion, additional portal hypertensive gastropathy was appreciated. The scope was then advanced through the widely patent pylorus into the duodenal bulb , C-loop, and distal duodenum. These were normal in appearance. The scope was then removed from the patient. He tolerated the procedure well. He was then rotated, given additional IV sedation medication. A rectal exam was performed. The rectal exam revealed some scant stool. The adult Olympus colonoscope was then inserted into the patient's rectum and advanced very carefully through the entirety of the colon and into the cecal base. The preparation was poor with large amount of fibrous material retained. The terminal ileal valve was identified and intubated x4 to 5 cm and normal in appearance. The scope was then returned to the cecal cap. A photograph was taken. Over the next 10 minutes, the scope was carefully withdrawn. The preparation was poor, however, I was able to wash majority of the lumen clear to rule out any large lesions. However, small polyps could definitely be missed. No polyps were identified, but the preparation was poor. On return to the rectum, direct views were normal. On retroflexion, the views were normal as well. The scope was then removed from the patient. He tolerated the procedure well. He returned to the recovery room in stable condition. IMPRESSION: 1. Complete esophagogastroduodenoscopy with biopsies. 2. Grade 1 esophageal varices that flattened with insufflation. 3. Biopsy was taken in mid esophagus to rule out eosinophilic esophagitis. 4. Portal hypertensive gastropathy. 5. Benign fundic gland polyps. 6. Mild antral gastritis, biopsied for CLOtesting. 7. Complete colonoscopy to the terminal ileum, however, with poor prep. 8. No large lesions identified. RECOMMENDATIONS: Repeat colonoscopy in 6 months to 1 year given the poor prep. He admits he only took about half the prep to two-thirds of the prep. In addition, it appears that he does have features of portal hypertension and probable cirrhosis. We will get an ultrasound elastography and have him follow up in the office in the next few months. As we had previously discussed, he does need to lose 10% of his body weight to help with his insulin resistance and with his fatty liver which has now likely progressed his cirrhosis. If this is indeed cirrhosis as I suspect, we will plan on ultrasound and laboratory testing every 6 months. We will follow up in the office for more discussion. [id number]/[facility] #: [id number] [facility]
== END 2019-01-03 13:25 | disposition home or self-care (01) ==
LOC: OR 08:56
PROVIDERS: ATTEND Internal Medicine Gastroenterology
DX: R13.14 Dysphagia, pharyngoesophageal phase (principal); Z09 Encounter for follow-up examination after completed treatment for conditions other than malignant neoplasm; Z86.010 Personal history of colon polyps; I85.00 Esophageal varices without bleeding; I10 Essential (primary) hypertension; J44.9 Chronic obstructive pulmonary disease, unspecified; G47.33 Obstructive sleep apnea (adult) (pediatric); E11.9 Type 2 diabetes mellitus without complications; Z79.4 Long term (current) use of insulin; E78.5 Hyperlipidemia, unspecified; K21.9 Gastro-esophageal reflux disease without esophagitis; F41.8 Other specified anxiety disorders
CPT/HCPCS: 87077; 88305; J2250; J2405; J2704; J3010

== ENCOUNTER 2019-04-07 22:42 | Observation (INO) | payer MEDICARE, OTHER ==
[2019-04-07 23:10] LABS: ABS Basophils 0.1 10^3/ul (0-0.2); ABS Eosinophils 0.1 10^3/ul (0-0.6); ABS Lymphocytes 1.6 10^3/ul (1.0-4.8); ABS Monocytes 0.9 10^3/ul (0-0.8); ABS Neutrophils 10.6 10^3/ul (1.5-7.7); Eosinophil % 0.8 %; Hematocrit 43 % (42-52); Hemoglobin 15.3 g/dL (14.0-18.0); Lymphocyte % 11.8 %; Mean Corpuscular HGB Conc 35 g/dL (31-36); Mean Corpuscular Hemoglobin 30 pg (27-31); Mean Corpuscular Volume 84 fL (80-94); Nucleated Red Blood Cells % 0.2; Platelet Count 190 10^3/uL (150-450); Red Blood Count 5.17 10^6 /uL (4.18-5.48); Red Cell Distribution Width 16 % (10-15); White Blood Count 13.3 10^3/uL (3.5-10.8)
[2019-04-07 23:21] LABS: INR 1.12 (0.82-1.09)
[2019-04-07 23:59] LABS: Albumin 4.3 g/dL (3.2-5.2); Anion Gap 13 mmol/L (2-11); CO2 Carbon Dioxide 23 mmol/L (22-32); Calcium 9.9 mg/dL (8.6-10.3); Chloride 94 mmol/L (101-111); Sodium 130 mmol/L (135-145)
[2019-04-08] LABS: ALT 37 U/L (7-52); Albumin/Globulin Ratio 1.3 (1-3); Alkaline Phosphatase 56 U/L (34-104); BUN/Creatinine Ratio 20.4 (8-20); Blood Urea Nitrogen 22 mg/dL (6-24); EGFR African American 85.3 (>60); EGFR Non-African American 70.5 (>60); Globulin 3.3 g/dL (2-4); Glucose 362 mg/dL (70-100); Total Protein 7.6 g/dL (6.4-8.9)
[2019-04-08] MEDS ORDERED: Acetaminophen TAB* 325 MG PO ONE (01:26)
[2019-04-08] MEDS ORDERED: fentaNYL* 50 MCG/ML 2 ML VIAL (100 MCG VIAL) IV SLOW PU ONE (03:07)
[2019-04-08] MEDS ORDERED: fentaNYL* 50 MCG/ML 2 ML VIAL (100 MCG VIAL) IV SLOW PU PRN ×2 (03:07→08:50)
[2019-04-08] MEDS ORDERED: Ondansetron INJ* 2 MG/ML VIAL IV ONE (03:08)
[2019-04-08] MEDS ORDERED: NS 0.9% 1000 ML** 2,000 ML IV ONE (03:08)
[2019-04-08] MEDS ORDERED: Iodixanol* (CONTRAST) 320 MG/ML 100 ML SDV IV ONE (03:47)
--- NOTE | 2019-04-08 03:55 | ED ---
Abdominal Pain/Male - HPI Summary HPI Summary: The patient is a 58 y/o M presenting to [facility] with a chief complaint of sudden onset umbilical and upper abdominal pain worsening throughout the night. He reports that the pain was onset in the morning when he woke up but continued to worsen throughout the day as he developed decreased appetite, nausea, vomiting, and diaphoresis. He denies any diarrhea or changes in BMs. Currently, his symptoms are rated 10/10 in severity. He notes hx of pancreatitis which occurs in the same area but usually radiates from the umbilical region across the abdomen, which is unlike his current symptoms. No abd surgery. PMHx: DM (blood glucose of 336 tonight [employer]), COPD, pancreatitis, diverticulitis, cirrhosis, kidney stones, PTSD. Former smoker, no EtOH, no substance use. Medications reviewed. Allergies noted. - History of Current Complaint Chief Complaint: EDAbdPain Stated Complaint: CHEST PAIN PER PT Time Seen by Provider: 04/08/19 03:00 Hx Obtained From: Patient Onset/Duration: Sudden Onset, Lasting Hours, Still Present Timing: Lasting Hours Severity Initially: Mild Severity Currently: Severe Pain Intensity: 10 Location: Umbilical, Other - upper abd Radiates: No Character: Sharp Aggravating Factor(s): Nothing Alleviating Factor(s): Nothing Associated Signs And Symptoms: Positive: Diaphoresis, Decreased Appetite, Nausea , Vomiting, Other - Negative: changes in BMs. Negative: Diarrhea - Allergies/Home Medications Allergies/Adverse Reactions: Allergies Allergy/AdvReac Type Severity Reaction Status Date / Time propoxyphene Allergy Severe See Comment Verified 04/07/19 23:05 [From Makayla] Home Medications: Home Medications Cbd Oil Capsule 15 mg PO DAILY 04/08/19 [History Confirmed 04/08/19] Fenofibrate(NF) [Tricor(NF)] 145 mg PO DAILY 04/08/19 [History Confirmed ] Insulin Regular, Human [Humulin R U-500 Kwikpen] 80 unit SUBCUT BID 04/08/19 [ History Confirmed 04/08/19] Mupirocin 2% CREAM* [Bactroban 2% CREAM*] 1 applic TOPICAL BID 04/08/19 [ History Confirmed 04/08/19] Sildenafil Citrate 100 mg PO DAILY 04/08/19 [History Confirmed 04/08/19] PMH/Surg Hx/FS Hx/Imm Hx Endocrine/Hematology History: Reports: Hx Diabetes Denies: Hx Thyroid Disease Cardiovascular History: Reports: Hx Hypertension Denies: Hx Hypercholesterolemia, Hx Pacemaker/ICD, Hx Peripheral Vascular Disease Respiratory History: Reports: Hx Chronic Obstructive Pulmonary Disease (COPD) - emphysema, Hx Sleep Apnea - unable to wear CPAP mask , Other Respiratory Problems/Disorders - NO OXYGEN AT THIS TIME Denies: Hx Asthma, Hx Seasonal Allergies GI History: Reports: Hx Cirrhosis, Hx Gastroesophageal Reflux Disease, Hx Hiatal Hernia, Hx Irritable Bowel, Other GI Disorders - pancreatitis, diverticulitis History: Reports: Hx Kidney Stones, Hx Renal Disease - STONES, Other Problems/Disorders - REPORTS 2 TUMORS IN KIDNEYS- FOLLOWED BY DR. SHAW Denies: Hx Dialysis Musculoskeletal History: Denies: Hx Arthritis, Hx Rheumatoid Arthritis, Hx Osteoporosis, Hx Scoliosis Sensory History: Reports: Hx Hearing Problem - Some hearing loss Denies: Hx Cataracts, Hx Contacts or Glasses, Hx Glaucoma, Hx Hearing Aid Opthamlomology History: Denies: Hx Cataracts, Hx Contacts or Glasses, Hx Glaucoma Neurological History: Reports: Hx Migraine, Hx Nerve Disease - NERVE IMPINGEMENT SURGERY ON NECK Denies: Hx Headaches, Hx Seizures, Hx Transient Ischemic Attacks (TIA), Other Neuro Impairments/Disorders Psychiatric History: Reports: Hx Eating Disorder, Hx Post Traumatic Stress Disorder, Other Psychiatric Issues/Disorders - ADD Denies: Hx Anxiety, Hx Depression, Hx Panic Disorder - Cancer History Cancer Type, Location and Year: ptsd,tbi,high cholesterol Hx Chemotherapy: No - Surgical History Surgery Procedure, Year, and Place: LASIK EYE SURGERY 2003 Hx Anesthesia Reactions: No Infectious Disease History: No Infectious Disease History: Denies: Hx Clostridium Difficile, Hx Hepatitis, Hx Human Immunodeficiency Virus (HIV), Hx of Known/Suspected MRSA, Hx Shingles, Hx Tuberculosis, Hx Known/ Suspected VRE, Hx Known/Suspected VRSA, History Other Infectious Disease, Traveled Outside the [place] in Last 30 Days - Family History Known Family History: Positive: Hypertension, Other - Cancer - Social History Alcohol Use: None Hx Substance Use: No Substance Use Type: Reports: None Hx Tobacco Use: Yes Smoking Status (MU): Former Smoker Type: Cigarettes Amount Used/How Often: 1 pack a day Have You Smoked in the Last Year: Yes Review of Systems Negative: Skin Diaphoresis Positive: Abdominal Pain - umbilical, upper abd, Vomiting, Nausea, Other - Positive: decreased appetite. Negative: change in BMs.. Negative: Diarrhea All Other Systems Reviewed And Are Negative: Yes Physical Exam - Summary Physical Exam Summary: Appearance: Well-appearing, Well-nourished, lying in stretcher comfortably Skin: Warm, dry, no obvious rash Eyes: sclera anicteric, no conjunctival pallor ENT: mucous membranes moist, pharynx appears normal Neck: Supple, nontender Respiratory: Clear to auscultation, no signs of respiratory distress Cardiovascular: Normal S1, S2. No murmurs. Normal distal pulses in tibial and radial bilaterally. Abdomen: Soft, diffuse mild tenderness, not peritonitis, normal active bowel sounds present Musculoskeletal: Normal, Strength/ROM Intact Neurological: A&Ox3, awake and alert, mentation is normal, speech is fluent and appropriate Psychiatric: affect is normal, does not appear anxious or depressed Triage Information Reviewed: Yes Vital Signs On Initial Exam: Initial Vitals Temp Pulse Resp BP Pulse Ox 97.9 F 93 18 151/86 96 04/07/19 23:04 04/07/19 23:04 04/07/19 23:04 04/07/19 23:04 04/07/19 23:04 Vital Signs Reviewed: Yes Diagnostics - Vital Signs Vital Signs Temp Pulse Resp BP Pulse Ox 04/08/19 03:29 18 04/08/19 01:36 98.5 F 93 16 122/77 93 04/07/19 23:04 97.9 F 93 18 151/86 96 - Laboratory Lab Results: Lab Results 04/07/19 04/07/19 04/07/19 Range/Units 23:02 23:02 23:02 WBC 13.3 H (3.5-10.8) 10^3/uL RBC 5.17 (4.18-5.48) 10^6 /uL Hgb 15.3 (14.0-18.0) g/dL Hct 43 (42-52) % MCV 84 (80-94) fL MCH 30 (27-31) pg MCHC 35 (31-36) g/dL RDW 16 H (10-15) % Plt Count 190 (150-450) 10^3/uL MPV 9.0 (7.4-10.4) fL Neut % (Auto) 79.7 % Lymph % (Auto) 11.8 % Placer % (Auto) 7.0 % Eos % (Auto) 0.8 % Baso % (Auto) 0.7 % Absolute Neuts (auto) 10.6 H (1.5-7.7) 10^3/ul Absolute Lymphs (auto) 1.6 (1.0-4.8) 10^3/ul Absolute Monos (auto) 0.9 H (0-0.8) 10^3/ul Absolute Eos (auto) 0.1 (0-0.6) 10^3/ul Absolute Basos (auto) 0.1 (0-0.2) 10^3/ul Absolute Nucleated RBC 0.0 10^3/ul Nucleated RBC % 0.2 INR (Anticoag Therapy) 1.12 H (0.82-1.09) Sodium 130 L (135-145) mmol/L Potassium TNP Chloride 94 L (101-111) mmol/L Carbon Dioxide 23 (22-32) mmol/L Anion Gap 13 H (2-11) mmol/L BUN 22 (6-24) mg/dL Creatinine 1.08 (0.67-1.17) mg/dL Est GFR ( Amer) 85.3 (>60) Est GFR (Non-Af Amer) 70.5 (>60) BUN/Creatinine Ratio 20.4 H (8-20) Glucose 362 H (70-100) mg/dL Calcium 9.9 (8.6-10.3) mg/dL Total Bilirubin 0.70 (0.2-1.0) mg/dL AST TNP ALT 37 (7-52) U/L Alkaline Phosphatase 56 (34-104) U/L Troponin I 0.00 (<0.04) ng/mL Total Protein 7.6 (6.4-8.9) g/dL Albumin 4.3 (3.2-5.2) g/dL Globulin 3.3 (2-4) g/dL Albumin/Globulin Ratio 1.3 (1-3) Lipase (11.0-82.0) U/L 04/08/19 Range/Units 01:53 WBC (3.5-10.8) 10^3/uL RBC (4.18-5.48) 10^6 /uL Hgb (14.0-18.0) g/dL Hct (42-52) % MCV (80-94) fL MCH (27-31) pg MCHC (31-36) g/dL RDW (10-15) % Plt Count (150-450) 10^3/uL MPV (7.4-10.4) fL Neut % (Auto) % Lymph % (Auto) % Placer % (Auto) % Eos % (Auto) % Baso % (Auto) % Absolute Neuts (auto) (1.5-7.7) 10^3/ul Absolute Lymphs (auto) (1.0-4.8) 10^3/ul Absolute Monos (auto) (0-0.8) 10^3/ul Absolute Eos (auto) (0-0.6) 10^3/ul Absolute Basos (auto) (0-0.2) 10^3/ul Absolute Nucleated RBC 10^3/ul Nucleated RBC % INR (Anticoag Therapy) (0.82-1.09) Sodium (135-145) mmol/L Potassium TNP Chloride (101-111) mmol/L Carbon Dioxide (22-32) mmol/L Anion Gap (2-11) mmol/L BUN (6-24) mg/dL Creatinine (0.67-1.17) mg/dL Est GFR ( Amer) (>60) Est GFR (Non-Af Amer) (>60) BUN/Creatinine Ratio (8-20) Glucose (70-100) mg/dL Calcium (8.6-10.3) mg/dL Total Bilirubin (0.2-1.0) mg/dL AST TNP ALT (7-52) U/L Alkaline Phosphatase (34-104) U/L Troponin I 0.00 (<0.04) ng/mL Total Protein (6.4-8.9) g/dL Albumin (3.2-5.2) g/dL Globulin (2-4) g/dL Albumin/Globulin Ratio (1-3) Lipase 1417 H (11.0-82.0) U/L Result Diagrams: 04/09/19 05:54 04/09/19 05:54 Lab Statement: Any lab studies that have been ordered have been reviewed, and results considered in the medical decision making process. - CT Abd/Pel CT CT Interpretation Completed By: Radiologist Summary of CT Findings: Impression: 1. There are inflammatory changes noted surrounding the head of the pancreas. Findings are compatible with acute pancreatitis. There is no evidence of pancreatic necrosis. There is no evidence of vascular thrombosis. There is no evidence of pseudocyst or abscess formation. 2. There is a 1.7 cm right adrenal nodule. Adrenal protocol imaging may be performed for further evaluation. ED physician has reviewed this report. - EKG 2245 Cardiac Rate: Tachycardia - 101 BPM EKG Rhythm: Sinus Tachycardia Summary of EKG Findings: Sinus tachycardia at 101 BPM, P waves, QRS complex, and T waves are within normal limits, T waves and intervals are normal, no ischemic changes. This is a normal EKG. ED physician has reviewed and interpreted this EKG. Abdominal Pain Male Course/Dx - Course Course Of Treatment: Pt is a 58 y/o M hx of pancreatitis with cc of new sudden onset umbilical and upper abdominal pain persisting throughout the day with worsening and development of decreased appetite, nausea, vomiting, and diaphoresis. Upon physical exam, the pt exhibits diffuse tenderness without peritonitis.Blood work reveals WBCs of 13.3, RDW of 16, abs neuts of 10.6, abs monos of 0.9, INR of 1.12, sodium of 130, chloride of 94, anion gap of 13, BUN/ Creatinine ratio of 20.4, glucose of 362, hemoglobin A1c of 14.3, triglycericdes of 909, LDL cholesterol of 17, and lipase of 1417. In the ED course, the pt was administered fluids, Tylenol and Fentanyl for pain, and Zofran for nausea. EKG at 2245 reveals sinus tachycardia at 101 BPM but otherwise is negative for ischemic changes. Abdominopelvic CT impression reveals acute pancreatitis visualized through inflammation without necrotic pancrease, vascualr thrombosis, pseudocyst, or abscess formation. Dr. Hutchinson, hospitalist, accepts pt for admission. Pt understands and agrees with this plan. Dx of pancreatitis, hyperlipasemia, hypertriglyceridemia. - Diagnoses Provider Diagnoses: Hypertriglyceridemia, Elevated lipase, Pancreatitis - Provider Notifications Discussed Care Of Patient With: Mona Hutchinson - hospitalist Time Discussed With Above Provider: 06:00 Instructed by Provider To: Admit As Observation - I discussed pt's case with Dr. Hutchinson, and she accepts the pt for admission. Discharge ED - Sign-Out/Discharge Documenting (check all that apply): Patient Departure - Patient accepted for admission by Dr. Hutchinson. Patient Received Moderate/Deep Sedation with Procedure: No - Discharge Plan Condition: Stable Disposition: ADMITTED TO [facility] - Billing Disposition and Condition Condition: STABLE Disposition: Admitted to [facility] - Attestation Statements Document Initiated by Oxana: Yes Documenting Scribe: Arabella Navarro Provider For Whom Oxana is Documenting (Include Credential): Dr. Ferny Olivares MD Scribe Attestation: Arabella Merrill scribed for Dr. Ferny Olivares MD on 04/17/19 at 1841. Scribe Documentation Reviewed: Yes Provider Attestation: The documentation as recorded by the Arabella alvarez accurately reflects the service I personally performed and the decisions made by me, Dr. Ferny Olivares MD Status of Scrcitlali Document: Viewed
[2019-04-08] MEDS ORDERED: Insulin GLARGINE(*) 1 UNITS UNIT SUBCUT ONE (07:46)
[2019-04-08] MEDS ORDERED: Dextrose 50% VIAL 50 ml IV PUSH PRN ×2 (08:23→08:24)
[2019-04-08] MEDS ORDERED: Insulin LISPRO* 1 UNITS UNIT SUBCUT ONE (08:24)
[2019-04-08] MEDS ORDERED: Acetaminophen TAB* 325 MG PO PRN (08:46)
[2019-04-08 09:35] LABS: Cholesterol 162 mg/dL; Triglycerides 909 mg/dL
[2019-04-08 09:38] LABS: BUN/Creatinine Ratio 21.6 (8-20); Calcium 9.1 mg/dL (8.6-10.3); EGFR African American 96.5 (>60); EGFR Non-African American 79.8 (>60)
[2019-04-08] MEDS ORDERED: Insulin LISPRO* 1 UNITS UNIT SUBCUT SCH (10:00)
[2019-04-08] MEDS: Pantoprazole IV* 40 MG IV SCH (10:41)
--- NOTE | 2019-04-08 10:48 | HP ---
ADDENDUM NOW INCLUDED ON THIS REPORT CC: Dr. Astrid Rasmussen; Dr. Lionel Wang * HISTORY AND PHYSICAL: DATE OF ADMISSION: 04/08/19 PRIMARY CARE PROVIDER: Dr. Astrid Rasmussen. CHIEF COMPLAINT: Abdominal pain. HISTORY OF PRESENT ILLNESS: Lj Ozuna is a 58-year-old male with history of obesity, nonalcoholic liver disease with stage 1 esophageal varices diagnosed in December of 2018 as well as long history of uncontrolled insulin- dependent diabetes and hypertriglyceridemia, who has had problems with pancreatitis due to hypertriglyceridemia in the past and presents once again with similar abdominal pain that started yesterday. The patient stated that the pain started yesterday morning. He did not use insulin last night when he was in the emergency room and has not received any insulin while staying in the emergency room overnight. His pain resolved after 2 doses of fentanyl at 100 mcg each during his ED stay. His lipase is above 1000. His sugars had been above 300. I do not have his triglyceride levels yet. He is going to be admitted with a diagnosis of acute pancreatitis likely once again due to hypertriglyceridemia. Of note, the patient stated that his sugars had been uncontrolled for the past several months. Few months ago, he was switched from Lantus to insulin U-500, but still his sugars continued to be high. The patient failed to lose any weight in the past several years, but he did stop smoking. The patient is going to be placed on inpatient admission with a diagnosis of acute pancreatitis. PAST MEDICAL HISTORY: 1. History of COPD, not oxygen dependent. 2. Diabetes type 2, insulin dependent. 3. History of pancreatitis secondary to hypertriglyceridemia. 4. Hypertension. 5. Gastroesophageal reflux disease. 6. History of PTSD. 7. Traumatic brain injury in 2004. 8. History of obstructive sleep apnea. The patient has not been able to use CPAP machine. 9. Anterior cervical diskectomy in July 2018. MEDICATIONS: At home include: 1. Atorvastatin 40 mg at bedtime. 2. TriCor at unknown dose 1 tablet daily. 3. Seroquel 100 mg at bedtime. 4. Omeprazole 20 mg b.i.d. 5. Mirtazapine 45 mg at bedtime. 6. Lisinopril/hydrochlorothiazide 10/12.5 two tablets in the a.m. 7. Insulin U-500, 80 units b.i.d. 8. CBD oil at bedtime. ALLERGIES: PROPOXYPHENE. FAMILY HISTORY: Positive for father who of leukemia and mother with history of lung cancer. SOCIAL HISTORY: The patient has a history of smoking, 2 packs per day; started when he was 13 years old and quit in May 2018. He denies any alcohol or drug use. 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 He is a full code and his surrogate is his Brisa. REVIEW OF SYSTEMS: Please see history of present illness. In addition to above mentioned, the patient stated that the pain is localized in the epigastric area as well as bilateral lower quadrants. It is crampy. The pain in the epigastric area was radiating to the back. After 2 doses of fentanyl, the pain is now gone. His last bowel movement was yesterday. He had some nausea and vomiting at home, but none here. His sugar had been in the 200s and 300s range for the past several weeks. All the remaining 12 systems were reviewed with the patient and were otherwise negative. PHYSICAL EXAMINATION GENERAL: The patient is a very pleasant 58-year-old obese male who is in no acute distress. Awake, alert, and oriented x3. VITAL SIGNS: Blood pressure 161/89, heart rate of 96 and regular, respiratory rate 18, oxygen saturation 90% on room air, and temperature of 98.5. HEENT: Head is atraumatic and normocephalic. Eyes: Pupils are equal and reactive to light and accommodation. Oropharynx clear. Mucosa moist. NECK: Supple. No JVD. No bruits bilaterally. RESPIRATORY: Clear to auscultation bilaterally. CARDIOVASCULAR: Regular rate and rhythm. No murmur. ABDOMEN: Obese, protuberant, soft, and nontender. Bowel sounds present in all 4 quadrants. LOWER EXTREMITIES: There is no edema. Pulses are +2 bilaterally. No clubbing or cyanosis. NEUROLOGIC EVALUATION: Speech clear. Cranial nerves II through XII grossly intact. Motor strength is 5/5 bilaterally. PSYCHIATRIC EVALUATION: Alert and oriented x3 with no evidence of anxiety or depression. DIAGNOSTIC STUDIES/LAB DATA: Laboratory data showed a white blood cell count of 13.3, hemoglobin of 15.3, hematocrit of 43, and platelets of 190. Sodium of 130, potassium hemolyzed and unable to obtain, chloride 194, carbon dioxide 23, anion gap of 13, BUN 22, creatinine 1.08. Liver function tests were unremarkable. Troponin of 0. Please note that AST was unable to be evaluated. Glucose of 357 just obtained within the past couple of hours. Lipase of 1417. Lipid profile pending. CT scan of the abdomen and pelvis showed 1.7 cm right adrenal nodule. There was also inflammatory changes noted surrounding the head of the pancreas compatible with acute pancreatitis with no evidence of pancreatic necrosis or vascular thrombosis and there was no evidence of pseudocyst or abscess formation. The patient's EKG showed sinus tachycardia with a heart rate of 101 beats per minute with nonspecific intraventricular conduction delay. Compared with an EKG from 2018, changes were similar. ASSESSMENT AND PLAN: 1. Acute pancreatitis, likely once again due to hypertriglyceridemia that was likely induced due to uncontrolled diabetes. I will ask Dr. Wang to see the patient in consultation in regards to his diabetic management. Due to the patient not having pain right now whatsoever, I do not believe he will require insulin drip. I will place him on fingersticks every 4 hours. He is going to be treated with down dose of 20 units of insulin Lantus now and 10 units of insulin lispro. He is going to be placed on sips of water with meds only and Protonix IV for GI prophylaxis. If his triglycerides are in fact very elevated , he may require insulin drip in ICU placement. 2. In regards to the patient's chronic obstructive pulmonary disease, it is not in exacerbation. We will continue to monitor. 3. Hypertriglyceridemia. Once again, his sugars will be controlled with aggressive glucose management. I will also continue the patient's statin. 4. For DVT prophylaxis, the patient is going to be placed on heparin subcutaneously. 5. His code status is full. His surrogate is his . TIME SPENT: Approximately 62 minutes were spent on the admission of this patient; more than half that time was spent [id number] with the patient during the interview and physical exam. ADDENDUM: In regards to the patient's 1.7 cm adrenal nodule, that was noted incidentally and can be followed as outpatient. The patient is aware of the findings and agrees with plan. [id number] #: [id number] #: [id number] [facility]
[2019-04-08 10:53] LABS: LDL Cholesterol Direct 22 mg/dL
[2019-04-08] MEDS: NS 0.9% 1000 ML** 1,000 ML IV SCH ×2 (11:45→20:43)
--- NOTE | 2019-04-08 11:45 | CONSULT ---
Consult Consult: [facility] Inpatient Consult Note Date of Consult: 04/08/19 Reason for Consult: hyperglycemia Reason for Admission: acute pancreatitis ASSESSMENT: 58 yo M with severe, insulin-resistant type 2 diabetes. His basal insulin requirement is at least 80 units/day, which he has been using as concentrated U500 insulin. He is currently experiencing hyperglycemia as a result of pancreatitis, hypertriglyceridemia and insulin-deficiency. I recommend starting insulin regimen below. PLAN: - regular insulin 20 units Q6H while NPO - when PO intake resumes: - regular insulin 20 units TID-AC - NPH insulin 30 units BID - check A1c this admission - R adrenal nodule is stable >2 years and is unlikely to be malignant - will pursue hormonal workup (mor/renin, metanephrines, 1mg DST) as outpatient SUBJECTIVE: History of Present Illness: 58 yo M with insulin-resistant T2DM, now admitted with abdominal pain, nausea and vomiting x24 hours. He was in his usual state of fair health until a recent trip from [place] on 04/06/19, when he stopped for a large meal ([employer]) and did not use his usual dose of insulin (80 units). The next day, he developed progressive nausea, vomiting and lower abdominal pain, similar in quality to, but in a different location from, his prior episode of pancreatitis in June 2017. Past Medical History: COPD T2DM pancreatitis hypertriglyceridemia. hypertension. gastroesophageal reflux disease. PTSD. taumatic brain injury JOLIE ACDF, July 2018. Medications Prior to Admission: Mirtazapine 45 mg PO BEDTIME 06/29/17 [History Confirmed 04/08/19] Omeprazole CAP (NF) [Prilosec CAP* 20 MG] 20 mg PO BID 06/29/17 [History Confirmed 04/08/19] Atorvastatin* [Lipitor 10 MG*] 40 mg PO BEDTIME 05/01/18 [History Confirmed ] QUEtiapine TAB* [Seroquel 100 MG *] 50 mg PO BEDTIME #0 08/07/18 [History Confirmed 04/08/19] Lisinopril/HCTZ 04/26.5(NF) [Zestoretic 04/26.(NF)] 1 tab PO QAM 12/31/18 [ History Confirmed 04/08/19] Dextrose [Glucose] 4 gm PO ONCE PRN 01/02/19 [History Confirmed 04/08/19] Cbd Oil Capsule 15 mg PO DAILY 04/08/19 [History Confirmed 04/08/19] Fenofibrate(NF) [Tricor(NF)] 145 mg PO DAILY 04/08/19 [History Confirmed ] Insulin Regular, Human [Humulin R U-500 Kwikpen] 80 unit SUBCUT BID 04/08/19 [ History Confirmed 04/08/19] Mupirocin 2% CREAM* [Bactroban 2% CREAM*] 1 applic TOPICAL BID 04/08/19 [ History Confirmed 04/08/19] Sildenafil Citrate 100 mg PO DAILY 04/08/19 [History Confirmed 04/08/19] Inpatient Medications: Acetaminophen (Tylenol Tab*) 650 mg PO Q4H PRN PRN Reason: PAIN-MILD/TEMP >/= 100.4 Last Admin: 04/08/19 12:40 Dose: 650 mg Atorvastatin Calcium (Lipitor*) 40 mg PO BEDTIME [facility] Dextrose (Dextrose 50% Vial 50 Ml*) 25 ml IV PUSH .FOR FS < 60 - SS PRN PRN Reason: FS < 60 Fentanyl Citrate (Fentanyl*) 50 mcg IV SLOW PU Q4H PRN PRN Reason: PAIN - SEVERE Last Admin: 04/08/19 13:54 Dose: 50 mcg Heparin Sodium (Porcine) (Heparin Vial(*)) 5,000 units SUBCUT Q8HR [facility] Last Admin: 04/08/19 13:54 Dose: 5,000 units Sodium Chloride (Ns 0.9% 1000 Ml) 1,000 mls @ 125 mls/hr IV PER RATE [facility] Stop: 04/09/19 16:59 Last Admin: 04/08/19 11:45 Dose: 125 mls/hr Insulin Human Regular (Insulin Regular(*)) 20 units SUBCUT Q6H [facility] Pantoprazole Sodium (Protonix Iv*) 40 mg IV DAILY [facility] Last Admin: 04/08/19 10:41 Dose: 40 mg Allergies/Intolerances: propoxyphene Social History: Lives with . Retired from . Occasional alcohol, no drugs. >40 pack year smoking history, quit May 2018. Family History: Leukemia, lung cancer. Review of Systems: As above. No recent medical illnesses. 12 system review is otherwise normal. OBJECTIVE: Temp Pulse Resp BP Pulse Ox 98.0 F 99 16 140/90 94 09/24/19 10:44 04/08/19 10:44 04/08/19 10:44 04/08/19 10:44 04/08/19 10:44 General: alert, pleasant, oriented, no distress ENT: neck supple, no thyromegaly, no bruit is heard Chest: CTAB, no wheezing or crackles CV: RRR, no murmur Abdomen: obese, soft, tender on deep palpation Extremities: no edema, distal pulses intact Skin: warm, dry, no rash Neuro: grossly intact motor/sensory in extremities Psych: restricted affect, pleasant Labs: - CT scan: peripancreatic inflammation, 1.7cm R adrenal nodule (was 1.6cm in September 2016) WBC 13.3 10^3/uL (3.5-10.8) H 04/07/19 23:02 RBC 5.17 10^6 /uL (4.18-5.48) 04/07/19 23:02 Hgb 15.3 g/dL (14.0-18.0) 04/07/19 23:02 Hct 43 % (42-52) 04/07/19 23:02 MCV 84 fL (80-94) 04/07/19 23:02 MCH 30 pg (27-31) 04/07/19 23:02 MCHC 35 g/dL (31-36) 04/07/19 23:02 RDW 16 % (10-15) H 04/07/19 23:02 Plt Count 190 10^3/uL (150-450) 04/07/19 23:02 MPV 9.0 fL (7.4-10.4) 04/07/19 23:02 Neut % (Auto) 79.7 % 04/07/19 23:02 Lymph % (Auto) 11.8 % 04/07/19 23:02 [place] % (Auto) 7.0 % 04/07/19 23:02 Eos % (Auto) 0.8 % 04/07/19 23:02 Baso % (Auto) 0.7 % 04/07/19 23:02 Absolute Neuts (auto) 10.6 10^3/ul (1.5-7.7) H 04/07/19 23:02 Absolute Lymphs (auto) 1.6 10^3/ul (1.0-4.8) 04/07/19 23:02 Absolute Monos (auto) 0.9 10^3/ul (0-0.8) H 04/07/19 23:02 Absolute Eos (auto) 0.1 10^3/ul (0-0.6) 04/07/19 23:02 Absolute Basos (auto) 0.1 10^3/ul (0-0.2) 04/07/19 23:02 Absolute Nucleated RBC 0.0 10^3/ul 04/07/19 23:02 Nucleated RBC % 0.2 04/07/19 23:02 INR (Anticoag Therapy) 1.12 (0.82-1.09) H 04/07/19 23:02 Sodium 132 mmol/L (135-145) L 04/08/19 09:10 Potassium TNP 04/08/19 01:53 Chloride 98 mmol/L (101-111) L 04/08/19 09:10 Carbon Dioxide 25 mmol/L (22-32) 04/08/19 09:10 Anion Gap 13 mmol/L (2-11) H 04/07/19 23:02 BUN 21 mg/dL (6-24) 04/08/19 09:10 Creatinine 0.97 mg/dL (0.67-1.17) 04/08/19 09:10 Est GFR ( Amer) 96.5 (>60) 04/08/19 09:10 Est GFR (Non-Af Amer) 79.8 (>60) 04/08/19 09:10 BUN/Creatinine Ratio 21.6 (8-20) H 04/08/19 09:10 Glucose 337 mg/dL (70-100) H 04/08/19 09:10 POC Glucose (mg/dL) 357 mg/dL (70-100) H 04/08/19 07:53 Calcium 9.1 mg/dL (8.6-10.3) 04/08/19 09:10 Total Bilirubin 0.70 mg/dL (0.2-1.0) 04/07/19 23:02 AST TNP 04/08/19 01:53 ALT 37 U/L (7-52) 04/07/19 23:02 Alkaline Phosphatase 56 U/L (34-104) 04/07/19 23:02 Troponin I 0.00 ng/mL (<0.04) 04/08/19 01:53 Total Protein 7.6 g/dL (6.4-8.9) 04/07/19 23:02 Albumin 4.3 g/dL (3.2-5.2) 04/07/19 23:02 Globulin 3.3 g/dL (2-4) 04/07/19 23:02 Albumin/Globulin Ratio 1.3 (1-3) 04/07/19 23:02 Triglycerides 909 mg/dL 04/08/19 01:53 Cholesterol 162 mg/dL 04/08/19 01:53 LDL Cholesterol mg/dL 04/08/19 01:53 LDL Cholesterol Direct 22 mg/dL 04/08/19 01:53 HDL Cholesterol 17.0 mg/dL 04/08/19 01:53 Lipase 280 U/L (11.0-82.0) H 04/08/19 09:10
--- NOTE | 2019-04-08 13:04 | HP ---
HISTORY AND PHYSICAL: ADDENDUM: In regards to the patient's 1.7 cm adrenal nodule, that was noted incidentally and can be followed as outpatient. The patient is aware of the findings and agrees with plan. [id number]/[facility] #: [id number] MTDD
[2019-04-08 13:54] LABS: Potassium 4.4 mmol/L (3.5-5.0)
[2019-04-08] MEDS: Heparin VIAL(*) 5000 UNITS/ML VIAL (FIVE THOUSAND) SUBCUT SCH ×2 (13:54→20:01)
[2019-04-08] MEDS ORDERED: Insulin REGULAR(*) 1 UNITS UNIT SUBCUT SCH (14:00)
[2019-04-08] MEDS: Insulin REGULAR(*) 1 UNITS UNIT SUBCUT SCH (20:02)
[2019-04-08] MEDS ORDERED: Mirtazapine TAB* 15 MG PO SCH (21:00)
[2019-04-08] MEDS ORDERED: QUEtiapine TAB* 25 MG PO SCH (21:00)
[2019-04-08] MEDS ORDERED: Atorvastatin* 40 MG TAB PO SCH (21:00)
[2019-04-09] MEDS: Insulin REGULAR(*) 1 UNITS UNIT SUBCUT SCH ×2 (01:20→08:45)
[2019-04-09] MEDS: Heparin VIAL(*) 5000 UNITS/ML VIAL (FIVE THOUSAND) SUBCUT SCH (05:05)
[2019-04-09 06:14] LABS: ABS Eosinophils 0.2 10^3/ul (0-0.6); ABS Lymphocytes 1.3 10^3/ul (1.0-4.8); ABS Monocytes 0.6 10^3/ul (0-0.8); Eosinophil % 3.4 %; Hematocrit 39 % (42-52); Lymphocyte % 21.1 %; Mean Corpuscular HGB Conc 34 g/dL (31-36); Mean Corpuscular Hemoglobin 29 pg (27-31); Mean Corpuscular Volume 86 fL (80-94); Mean Platelet Volume 8.4 fL (7.4-10.4); Platelet Count 136 10^3/uL (150-450); Red Blood Count 4.53 10^6 /uL (4.18-5.48); Red Cell Distribution Width 16 % (10-15); White Blood Count 6.1 10^3/uL (3.5-10.8)
[2019-04-09 06:26] LABS: Albumin 3.3 g/dL (3.2-5.2); Albumin/Globulin Ratio 1.1 (1-3); BUN/Creatinine Ratio 17.9 (8-20); Calcium 8.6 mg/dL (8.6-10.3); EGFR African American 98.9 (>60); EGFR Non-African American 81.7 (>60); Globulin 2.9 g/dL (2-4); Potassium 3.7 mmol/L (3.5-5.0); Total Bilirubin 0.6 mg/dL (0.2-1.0); Total Protein 6.2 g/dL (6.4-8.9)
[2019-04-09] MEDS ORDERED: Dextrose 50% VIAL 50 ml IV PUSH PRN (08:26)
[2019-04-09] MEDS: Pantoprazole IV* 40 MG IV SCH (09:05)
[2019-04-09 11:23] VITALS: BP 152/87
[2019-04-09] MEDS ORDERED: Insulin LISPRO* 1 UNITS UNIT SUBCUT SCH (11:30)
[2019-04-09] MEDS ORDERED: Insulin GLARGINE(*) 1 UNITS UNIT SUBCUT ONE (11:42)
--- NOTE | 2019-04-09 13:00 | DS ---
CC: Dr. Wang; Dr. Astrid Rasmussen * DISCHARGE SUMMARY: DATE OF ADMISSION: 04/08/19 DATE OF DISCHARGE: 04/09/19 PRIMARY CARE PROVIDER: Dr. Astrid Rasmussen. TOOL PROGRAMMER: Dr. Wang. DISPOSITION AT DISCHARGE: Home. CONDITION ON DISCHARGE: Stable. DISCHARGE DIAGNOSES: 1. Acute pancreatitis, probably related to hypertriglyceridemia. 2. Uncontrolled diabetes type 2, insulin dependent. SECONDARY DIAGNOSES: 1. History of insulin dependent diabetes. 2. Hypertriglyceridemia with recurrent pancreatitis secondary to that in the past. 3. History of chronic obstructive pulmonary disease, not on oxygen. 4. Hypertension. 5. Gastroesophageal reflux disease. 6. Posttraumatic stress disorder. 7. Traumatic brain injury in 2004. 8. Obstructive sleep apnea, noncompliant with CPAP. 9. Anterior cervical diskectomy in July 2018. MEDICATIONS AT DISCHARGE: Include: 1. Lipitor 40 mg at bedtime. 2. CBD oil as previously taken. 3. TriCor 145 mg daily. 4. Insulin Humulin R 500, 80 units subcutaneously twice a day. 5. Lisinopril/hydrochlorothiazide /.5 one tablet in a.m. 6. Mirtazapine 45 mg at bedtime. 7. Bactroban cream 2% apply to affected area p.r.n. b.i.d. 8. Omeprazole 20 mg b.i.d. 9. Seroquel 50 mg at bedtime. 10. Sildenafil on a p.r.n. basis. CONSULTATIONS DURING THE HOSPITAL STAY: Included Dr. Lionel Wang from Endocrinology. LABORATORY DATA AND STUDIES PERFORMED DURING THE HOSPITAL STAY: Included: On , sodium of 136, potassium of 3.7, chloride 104, carbon dioxide 29, BUN 17 , creatinine 0.95. Liver function tests unremarkable. Lipase of 116. Glucose above 135. CBC: White blood cell count of 6.1, hemoglobin of 13.0, hematocrit of 39, and platelets of 136,000. CT of the abdomen and pelvis obtained on admission, impression: "There are inflammatory changes noted surrounding the head of the pancreas. Findings are compatible with acute pancreatitis. There is no evidence of pancreatic necrosis. There is no evidence of vascular thrombosis. There is no evidence of pseudocyst or abscess formation. There is a 1.7 cm right adrenal nodule. Adrenal protocol may be performed for further evaluation." HOSPITALIZATION COURSE: Lj Ozuna is a 58-year-old male with history of difficult to control diabetes, who is under the care of Dr. Wang. He presented to the hospital complaining of history of polydipsia and more recently within a few hours onset of epigastric abdominal pain. The patient was noted to have glucose level of 362. His lipase level was 1417. CT was consistent with pancreatitis. His triglyceride level which in the past was markedly elevated was 909 which was probably the lowest, it had been when the patient developed pancreatitis. The patient stated that he has been having polydipsia and his glucose meter reading "high" for several weeks now. He was placed on sips of clear liquid diet and fentanyl for pain management. Within 12 hours, he improved dramatically and his pain basically resolved. He was observed overnight and by the time of discharge, he had no pain whatsoever. He was tolerating full liquid diet and he is going to be discharged on soft and bland diet for a couple of days and to advance as tolerated 2 days later to diabetic. Dr. Lionel Wang saw this patient in consultation in regards to diabetic management. Unfortunately, the patient is a very difficult to control diabetic, some of it is also due to medical noncompliance. At this point as per discussion with Dr. Wang, it was decided that the patient is going to be continued on his insulin regular U- 500 at 80 units twice a day as previously used. Dr. Wang is also going to call the patient to schedule an appointment for followup and to set up another insulin treatment within the next few days. For the time being, the patient was asked to adhere to the diabetic diet as mentioned above. He also is going to follow with [facility]. He is considering bariatric surgery. PHYSICAL EXAM AT THE TIME OF DISCHARGE: Blood pressure of 152/87, heart rate of 95 and regular, respiratory rate 14, oxygen saturation 95% on room air, temperature 97.9. General: The patient is a very pleasant 58-year-old male who is in no acute distress. Alert, awake, and oriented x3. HEENT: Head: Atraumatic, normocephalic. Eyes: Pupils are equal and reactive to light and accommodation. Oropharynx is clear. Mucosa moist. Neck: Supple. No JVD. No bruit bilaterally. Cardiovascular: Regular rate and rhythm. No murmur. Respiratory: Clear to auscultation bilaterally. Abdomen: Soft and nontender. Bowel sounds present in all 4 quadrants. Extremities: There is no edema. Pulses are +2 bilaterally. There is no clubbing or cyanosis. Neuro Evaluation: Grossly nonfocal. Please note that this is a short summary of the patient's hospitalization. Please refer to further medical records for details. TIME SPENT: Approximately 45 minutes were spent on the patient's discharge. [id number]/[facility] #: [id number] MTDD
== END 2019-04-09 12:45 | disposition home or self-care (01) ==
LOC: ED 22:42 → INTOOBSV 04-08 08:46 → MED 04-08 08:46
PROVIDERS: ADMIT Internal Medicine; ATTEND Internal Medicine
DX: K85.90 Acute pancreatitis without necrosis or infection, unspecified (principal); E78.1 Pure hyperglyceridemia; E11.65 Type 2 diabetes mellitus with hyperglycemia; Z79.4 Long term (current) use of insulin; J44.9 Chronic obstructive pulmonary disease, unspecified; I10 Essential (primary) hypertension; K21.9 Gastro-esophageal reflux disease without esophagitis; F43.10 Post-traumatic stress disorder, unspecified; Z87.820 Personal history of traumatic brain injury; G47.33 Obstructive sleep apnea (adult) (pediatric); Z87.39 Personal history of other diseases of the musculoskeletal system and connective tissue; Z79.899 Other long term (current) drug therapy; Z87.891 Personal history of nicotine dependence; Z87.442 Personal history of urinary calculi
CPT/HCPCS: 36415; 74177; 80048; 80053; 80061; 83036; 83690; 83721; 84484; 85025; 85610; 93005; 96372; 96374; 96375; 96376; 99285; A9270-GY; G0378; J1644; J2405; J3010; Q9967

== ENCOUNTER → 2019-05-02 07:17 | Day surgery (SDC) | payer MEDICARE, OTHER ==
[~2019-05-02 07:17] MED LIST changes: +Dexamethasone IV* 4 MG/ML 1 ML (4 MG) ONE; +Famotidine IV* 10 MG/ML 2 ML (20 mg) ONE; +KETAMINE HCL* 50 MG/ML 10 ML VIAL ONE; +Lidocaine 2% PF * 5 ML VIAL ONE; +Midazolam* 1 MG/ML 10 ML VIAL (10 MG) ONE; +Naloxone* 0.4 MG/ML 1 ML VIAL IV PRN; +Ondansetron INJ* 2 MG/ML VIAL IV PRN; +Ondansetron INJ* 2 MG/ML VIAL ONE; +Propofol* 10 MG/ML 20 ML BTL ONE; +fentaNYL* 50 MCG/ML 2 ML VIAL (100 MCG VIAL) ONE
[2019-05-02 11:19] VITALS: BP 132/85
--- NOTE | 2019-05-03 21:25 | PRO ---
CC: Dr. Astrid Rasmussen * COLONOSCOPY REPORT: DATE OF PROCEDURE: 05/02/19 - [facility] PRIMARY CARE PHYSICIAN: Dr. Astrid Rasmussen. INDICATION: History of colon polyps. PROCEDURE PERFORMED: Complete colonoscopy to the terminal ileum with cold snare polypectomy and biopsy polypectomy. MEDICATIONS GIVEN: Include please see anesthesia record. DESCRIPTION OF PROCEDURE: After the colonoscopy procedure including the risks, benefits, and alteratives with the risks not limited to perforation, surgery, missed lesions, and/or were explained to the patient, a written informed consent was obtained. IV medication was given and a rectal exam was performed. The rectal exam was unremarkable. The adult Olympus colonoscope was then inserted into the patient's rectum and advanced very carefully through the entirety of the colon into the cecal base. Cecal base was carefully inspected and normal in appearance. The terminal ileal valve was identified and intubated x4 to 5 cm and normal. The scope was then returned to the cecum. The preparation was good. A photograph was taken of the cecal cap over the next 10 minutes. The scope was carefully withdrawn inspecting the mucosa. In the ascending colon, a polyp was removed with cold snare polypectomy in entirety. On further withdrawal, in the descending colon an additional polyp was removed with biopsy polypectomy. Upon further withdrawal to the rectum, 3 polyps were removed with biopsy polypectomy in entirety. On retroflexion, the views were grossly normal. The scope was then removed from the patient. He tolerated the procedure well. He returned to the recovery room in stable condition. IMPRESSION: 1. Complete colonoscopy to the terminal ileum. 2. Cold snare polypectomy x1 in the descending colon as above. 2. Biopsy polypectomy x4 as above. RECOMMENDATIONS: Repeat colonoscopy in 3 to 5 years, pending pathology. [id number]/[facility] #: [id number] [facility]
== END | disposition home or self-care (01) ==
LOC: OR 07:17
PROVIDERS: ATTEND Internal Medicine Gastroenterology
DX: Z09 Encounter for follow-up examination after completed treatment for conditions other than malignant neoplasm (principal); Z86.010 Personal history of colon polyps; D12.2 Benign neoplasm of ascending colon; D12.4 Benign neoplasm of descending colon; K62.1 Rectal polyp; I10 Essential (primary) hypertension; J44.9 Chronic obstructive pulmonary disease, unspecified; G47.33 Obstructive sleep apnea (adult) (pediatric); F41.8 Other specified anxiety disorders; E11.9 Type 2 diabetes mellitus without complications; Z79.4 Long term (current) use of insulin; K75.81 Nonalcoholic steatohepatitis (NASH)
CPT/HCPCS: 88305; J1100; J2250; J2405; J2704; J3010

== ENCOUNTER 2019-09-15 09:43 | Emergency (ER) | payer MEDICARE, OTHER ==
[2019-09-15 10:25] VITALS: BP 131/72
--- NOTE | 2019-09-15 10:32 | UC ---
Respiratory Complaint HPI - HPI Summary HPI Summary: 59-year-old male who presents today with cough and cold symptoms stating "I think I have bronchitis". He is a smoker. He also states that he has had watery diarrhea approximately 6-7 days for the past month and a half. He had a colonoscopy 3 months ago and had some polyps removed. He has no recollection of the result of the biopsies of the polyps. He has well water however his is not sick. He's had no blood in his stools. He's also had no recent travel. He states he's had some wheezing and occasionally productive cough. He denies any pain. - History of Current Complaint Chief Complaint: UCGeneralIllness Stated Complaint: COUGH Time Seen by Provider: 09/15/19 10:21 Hx Obtained From: Patient Onset/Duration: Gradual Onset Timing: Intermittent Episodes Severity Initially: Moderate Severity Currently: Mild Pain Intensity: 0 Character: Cough: Productive - Cough is occasionally productive, no shortness of breath. Aggravating Factors: Nothing Alleviating Factors: Nothing Associated Signs And Symptoms: Positive: Wheezing, URI, Nasal Congestion - Risk Factors Cardiac Risk Factors: Hypertension, Smoking, Diabetes - Allergies/Home Medications Allergies/Adverse Reactions: Allergies Allergy/AdvReac Type Severity Reaction Status Date / Time propoxyphene Allergy Severe See Comment Verified 09/15/19 10:19 [From Makayla] Home Medications: Home Medications Mirtazapine 45 mg PO BEDTIME 06/29/17 [History Confirmed 09/15/19] Omeprazole CAP (NF) [Prilosec CAP* 20 MG] 20 mg PO BID 06/29/17 [History Confirmed 09/15/19] Atorvastatin* [Lipitor 10 MG*] 40 mg PO BEDTIME 05/01/18 [History Confirmed 09/04] QUEtiapine TAB* [Seroquel 100 MG *] 50 mg PO BEDTIME #0 08/07/18 [History Confirmed 09/15/19] Lisinopril/HCTZ 04/26.5(NF) [Zestoretic 04/26.5(NF)] 1 tab PO QAM 12/31/18 [ History Confirmed 09/15/19] Cbd Oil Capsule 15 mg PO QPM 04/08/19 [History Confirmed 09/15/19] Fenofibrate(NF) [Tricor(NF)] 145 mg PO DAILY 04/08/19 [History Confirmed ] Insulin Regular, Human [Humulin R U-500 Kwikpen 500 UNITS/ML x 3 Pens] 100 unit SUBCUT BID 04/08/19 [History Confirmed 09/15/19] Sildenafil Citrate 100 mg PO DAILY 04/08/19 [History Confirmed 09/15/19] Albuterol HFA INHALER* [Ventolin HFA Inhaler*] 2 puff INH Q4H PRN 5 Days #1 mdi 09/15/19 [Rx] Azithromyxin JULIANNE (NF) [Z-Julianne (Zithromax) 250 mg tabs #6] 2 tab PO .TODAY, THEN 1 DAILY #6 tab 09/15/19 [Rx] PMH/Surg Hx/FS Hx/Imm Hx Previously Healthy: Yes Endocrine History: Diabetes Cardiovascular History: Hypertension Respiratory History: COPD - Surgical History Surgical History: Yes Surgery Procedure, Year, and Place: LASIK EYE SURGERY 2003. cervical spine sx - Family History Known Family History: Positive: Hypertension, Other - Cancer - Social History Occupation: Employed Full-time Lives: With Family Alcohol Use: None Alcohol Amount: declines Substance Use Type: None Substance Use Comment - Amount & Last Used: CBD Smoking Status (MU): Heavy Every Day Tobacco Smoker Type: Cigarettes Amount Used/How Often: 1 pack a day Have You Smoked in the Last Year: Yes When Did the Patient Quit Smoking/Using Tobacco: 04/2018 Household Exposure Type: Cigarettes - Immunization History Most Recent Influenza Vaccination: Mar 2018 Most Recent Tetanus Shot: 6 years ago Most Recent Pneumonia Vaccination: a few years ago Review of Systems All Other Systems Reviewed And Are Negative: Yes ENT: Positive: Nasal Discharge Respiratory: Positive: Cough - Occasionally productive cough, occasional wheezing. Is Patient Immunocompromised?: No Physical Exam Triage Information Reviewed: Yes Appearance: Well-Appearing, No Pain Distress, Well-Nourished Vital Signs: Initial Vital Signs Temp 98.5 F 09/15/19 10:19 Pulse 97 09/15/19 10:19 Resp 15 09/15/19 10:19 BP 131/72 09/15/19 10:19 Pulse Ox 93 09/15/19 10:19 Vital Signs Reviewed: Yes Eyes: Positive: Conjunctiva Clear ENT: Positive: Pharynx normal, TMs normal, Uvula midline. Negative: Sinus tenderness Neck: Positive: Supple, Nontender, No Lymphadenopathy Respiratory: Positive: No respiratory distress, No accessory muscle use, Rhonchi - Mild rhonchi right upper lobe posteriorly with deep inspiration, mild expiratory wheeze with forced expiration. No distress. Good air movement., Wheezing Cardiovascular: Positive: RRR, No Murmur, Pulses Normal, Brisk Capillary Refill Musculoskeletal Exam: Normal Neurological Exam: Normal Psychological Exam: Normal Skin Exam: Normal Respiratory Course/Dx - Course Course Of Treatment: The patient is comfortable here and in no distress. A stool kit was sent home with the patient for stool specimens. I am going to start him on an inhaler which she has used in the past with good relief. I'm also going to start him on a Z-Julianne which she has also used in the past without any adverse reaction. He is to definitely follow up with his production illustrator regarding the chronic diarrhea and follow-up with his primary care provider if he has no improvement in the bronchitis over the next 3 or 4 days. Patient is agreeable to this plan of action. - Differential Dx/Diagnosis Provider Diagnosis: Bronchitis, Chronic diarrhea Discharge ED - Sign-Out/Discharge Documenting (check all that apply): Patient Departure All imaging exams completed and their final reports reviewed: No Studies - Discharge Plan Condition: Good Disposition: HOME Prescriptions: Albuterol HFA INHALER* [Ventolin HFA Inhaler*] 2 puff INH Q4H PRN 5 Days #1 mdi PRN Reason: Wheezing Azithromyxin UJLIANNE (NF) [Z-Julianne (Zithromax) 250 mg tabs #6] 2 tab PO .TODAY, THEN 1 DAILY #6 tab Patient Education Materials: Acute Bronchitis (ED), Acute Diarrhea (ED) Referrals: Astrid Rasmussen MD [Primary Care Provider] - Additional Instructions: Increase fluids, use your albuterol inhaler 2 puffs every 4-6 hours as needed for wheezing. Follow-up with your production illustrator for continued diarrhea treatment. Follow-up with your primary care provider if no improvement and bronchitis in 3 or 4 days. - Billing Disposition and Condition Condition: GOOD Disposition: Home
== END 2019-09-15 11:13 | disposition home or self-care (01) ==
LOC: UCCORT 09:43
DX: K52.9 Noninfective gastroenteritis and colitis, unspecified (principal); J44.9 Chronic obstructive pulmonary disease, unspecified; R09.89 Other specified symptoms and signs involving the circulatory and respiratory systems; E11.9 Type 2 diabetes mellitus without complications; I10 Essential (primary) hypertension; F17.210 Nicotine dependence, cigarettes, uncomplicated; Z88.5 Allergy status to narcotic agent; Z79.4 Long term (current) use of insulin; Z79.899 Other long term (current) drug therapy
CPT/HCPCS: 99212; G0463

== ENCOUNTER 2022-10-01 19:56 | Inpatient (IN) ==
[2022-10-01] MEDS ORDERED: fentaNYL 100 mcg/2 ml 50 MCG/ML VIAL IV SLOW PU ONE (21:07)
[2022-10-01] MEDS ORDERED: Ondansetron 4 mg VIAL 2 MG/ML 2 ml VIAL IV ONE ×2 (21:07→22:17)
[2022-10-01] MEDS ORDERED: Lactated Ringers 1000 ml BAG 1,000 ML IV ONE (21:07)
[2022-10-01 21:34] LABS: Hematocrit 45 % (42-52); Hemoglobin 16.5 g/dL (14.0-18.0); Mean Corpuscular HGB Conc 37 g/dL (31-36); Mean Corpuscular Hemoglobin 32 pg (27-31); Mean Corpuscular Volume 87 fL (80-94); Mean Platelet Volume 8.5 fL (7.4-10.4); Platelet Count 200 10^3/uL (150-450); Red Blood Count 5.22 10^6 /uL (4.18-5.48); Red Cell Distribution Width 16 % (10-15); White Blood Count 11.1 10^3/uL (3.5-10.8)
[2022-10-01 22:06] LABS: ABS Basophils 0.1 10^3/ul (0-0.2); ABS Eosinophils 0.1 10^3/ul (0-0.6); ABS Lymphocytes 1.6 10^3/ul (1.0-4.8); ABS Monocytes 0.5 10^3/ul (0-0.8); ABS Neutrophils 8.6 10^3/ul (1.5-7.7); Eosinophil % 1.3 %; Lymphocyte % 14.6 %; Nucleated Red Blood Cells % 0.1
[2022-10-01] MEDS ORDERED: HYDROmorphone 0.5 MG/0.5 ML SYRINGE IV ONE (22:17)
[2022-10-01 22:42] LABS: Sodium 133 mmol/L (135-145)
[2022-10-01 22:45] LABS: ALT 34 U/L (7-52); Blood Urea Nitrogen 27 mg/dL (6-24); CO2 Carbon Dioxide 23 mmol/L (22-32); Chloride 101 mmol/L (101-111); Creatinine, Serum 1.35 mg/dL (0.67-1.17); Glucose 176 mg/dL (70-100); eGFR CKD-EPI 59.7 (>60)
[2022-10-01 22:46] LABS: Albumin 4.5 g/dL (3.2-5.2); Alkaline Phosphatase 45 U/L (35-149); C Reactive Protein 4.48 mg/L (<8.01); Calcium 9.9 mg/dL (8.6-10.3); Globulin 2.2 g/dL (2-4); Lipase 354 U/L (11.0-82.0); Total Protein 6.7 g/dL (6.4-8.9)
[2022-10-01] MEDS ORDERED: Prochlorperazine 5 mg/ml 2 ml VIAL (10 mg) IV ONE (22:59)
[2022-10-01] MEDS ORDERED: HYDROmorphone 1 MG/1 ML SYRINGE IV ONE (23:05)
[2022-10-01 23:21] LABS: Triglycerides 2031 mg/dL
[2022-10-01] MEDS ORDERED: Insulin Infusion 100unit/100mL 100 UNIT/100 ML BAG IV ONE (23:29)
[2022-10-01] MEDS ORDERED: Dextrose 50% Syringe 50 ml 25 GM/50 ML SYRINGE IV PUSH PRN (23:29)
[2022-10-01] MEDS ORDERED: D5NS 0.9% 1000 ml BAG 1,000 ML IV SCH (23:45)
[2022-10-02] MEDS ORDERED: Ondansetron 4 mg VIAL 2 MG/ML 2 ml VIAL IV PRN (00:01)
[2022-10-02 00:22] LABS: Potassium, Whole Blood 5.6 mmol/L (3.4-4.5)
[2022-10-02] MEDS: Insulin Infusion 100unit/100mL 100 UNIT/100 ML BAG IV SCH ×2 (01:06→08:18)
[2022-10-02] MEDS: Enoxaparin 40 MG/0.4 ML SYR SUBCUT SCH ×2 (02:20→21:00)
[2022-10-02] MEDS: fentaNYL 100 mcg/2 ml 50 MCG/ML VIAL IV SLOW PU PRN ×4 (02:20→07:23)
[2022-10-02] MEDS: D5W 1000 ml BAG 1,000 ML IV SCH ×3 (03:44→23:39)
[2022-10-02 04:26] LABS: ABS Basophils 0.1 10^3/ul (0-0.2); ABS Lymphocytes 0.7 10^3/ul (1.0-4.8); ABS Monocytes 0.5 10^3/ul (0-0.8); ABS Neutrophils 10.2 10^3/ul (1.5-7.7); Eosinophil % 0.3 %; Hematocrit 47 % (42-52); Hemoglobin 16.3 g/dL (14.0-18.0); Lymphocyte % 6.4 %; Mean Corpuscular HGB Conc 35 g/dL (31-36); Mean Corpuscular Hemoglobin 31 pg (27-31); Mean Corpuscular Volume 88 fL (80-94); Mean Platelet Volume 8.4 fL (7.4-10.4); Nucleated Red Blood Cells % 0.1; Platelet Count 175 10^3/uL (150-450); Red Blood Count 5.33 10^6 /uL (4.18-5.48); Red Cell Distribution Width 15 % (10-15); White Blood Count 11.7 10^3/uL (3.5-10.8)
[2022-10-02 04:59] LABS: Albumin 3.9 g/dL (3.2-5.2); Albumin/Globulin Ratio 1.4 (1-3); Alkaline Phosphatase 53 U/L (35-149); Blood Urea Nitrogen 26 mg/dL (6-24); CO2 Carbon Dioxide 25 mmol/L (22-32); Calcium 9.6 mg/dL (8.6-10.3); Chloride 103 mmol/L (101-111); Creatinine, Serum 1.07 mg/dL (0.67-1.17); Globulin 2.8 g/dL (2-4); Glucose 155 mg/dL (70-100); Sodium 136 mmol/L (135-145); Total Protein 6.7 g/dL (6.4-8.9)
[2022-10-02 05:16] LABS: ALT 23 U/L (7-52); Anion Gap 8 mmol/L (2-11); Triglycerides 1408 mg/dL
[2022-10-02] MEDS: Lactated Ringers 1000 ml BAG 1,000 ML IV SCH ×3 (07:24→21:00)
[2022-10-02 07:34] LABS: Potassium, Whole Blood 4.7 mmol/L (3.4-4.5)
[2022-10-02] MEDS ORDERED: Magnesium Hydroxide LIQ 30 ML UDC PO PRN (08:50)
[2022-10-02] MEDS ORDERED: Senna TAB 8.6 mg TAB PO PRN (08:51)
[2022-10-02 09:33] LABS: Blood Urea Nitrogen 23 mg/dL (6-24); CO2 Carbon Dioxide 26 mmol/L (22-32); Calcium 9.4 mg/dL (8.6-10.3); Chloride 104 mmol/L (101-111); Creatinine, Serum 0.96 mg/dL (0.67-1.17); Glucose 95 mg/dL (70-100); Sodium 135 mmol/L (135-145); eGFR CKD-EPI 89.9 (>60)
[2022-10-02 09:56] LABS: Anion Gap 5 mmol/L (2-11)
[2022-10-02 11:05] LABS: Anion Gap 5 mmol/L (2-11); CO2 Carbon Dioxide 27 mmol/L (22-32); Calcium 9.4 mg/dL (8.6-10.3); Chloride 102 mmol/L (101-111); Sodium 134 mmol/L (135-145)
[2022-10-02 11:11] LABS: Blood Urea Nitrogen 22 mg/dL (6-24); Creatinine, Serum 0.94 mg/dL (0.67-1.17); Glucose 160 mg/dL (70-100); eGFR CKD-EPI 92.2 (>60)
[2022-10-02] MEDS ORDERED: Insulin Infusion 100unit/100mL 100 UNIT/100 ML BAG IV SCH (11:25)
[2022-10-02 13:37] LABS: Urine Appearance Clear; Urine Bilirubin Negative (Negative); Urine Blood Negative (Negative); Urine Color Yellow; Urine Glucose 3+(>=500 mg/dL) (Negative); Urine Ketones Trace (Negative); Urine Nitrite Negative (Negative); Urine Protein 2+(100 mg/dL) (Negative); Urine Urobilinogen Negative (Negative)
[2022-10-02 13:53] LABS: Albumin 3.9 g/dL (3.2-5.2)
[2022-10-02 13:59] LABS: ALT 29 U/L (7-52); Albumin/Globulin Ratio 1.4 (1-3); Alkaline Phosphatase 45 U/L (35-149); Globulin 2.8 g/dL (2-4); Lipase 367 U/L (11.0-82.0); Total Protein 6.7 g/dL (6.4-8.9); Triglycerides 840 mg/dL
[2022-10-02 14:07] LABS: Urine Bacteria Absent (Absent); Urine Red Blood Cell Absent (Absent); Urine White Blood Cell Trace(0-5/hpf) (Absent)
[2022-10-02] MEDS: Albuterol HFA INHALER 8 gm MDI INH PRN (15:12)
[2022-10-02 15:13] LABS: TSH Ultra Thyroid Stim Horm 0.65 mcIU/mL (0.34-5.60)
[2022-10-02 17:42] LABS: Triglycerides 676 mg/dL
[2022-10-02 18:53] LABS: Hepatitis B Surface Antigen Nonreactive (Nonreactive)
[2022-10-02 18:58] LABS: Hepatitis A Ab IgM Negative (Negative)
[2022-10-02 18:59] LABS: Hepatitis B Core IgM Nonreactive (Nonreactive)
[2022-10-02 19:09] LABS: Direct Bilirubin Redraw 0.1 mg/dL (0.03-0.18)
[2022-10-02 19:10] LABS: Hepatitis C Antibody Negative (Negative)
[2022-10-02] MEDS: Tiotropium Brom/Olodaterol MDI INH SCH (20:23)
[2022-10-03] MEDS: Lactated Ringers 1000 ml BAG 1,000 ML IV SCH (03:34)
[2022-10-03 05:35] LABS: ABS Eosinophils 0.1 10^3/ul (0-0.6); ABS Monocytes 0.6 10^3/ul (0-0.8); ABS Neutrophils 7.9 10^3/ul (1.5-7.7); Eosinophil % 1.4 %; Hematocrit 41 % (42-52); Hemoglobin 13.6 g/dL (14.0-18.0); Lymphocyte % 10.9 %; Mean Corpuscular HGB Conc 34 g/dL (31-36); Mean Corpuscular Hemoglobin 29 pg (27-31); Mean Corpuscular Volume 87 fL (80-94); Platelet Count 118 10^3/uL (150-450); Red Blood Count 4.63 10^6 /uL (4.18-5.48); Red Cell Distribution Width 15 % (10-15); White Blood Count 9.6 10^3/uL (3.5-10.8)
[2022-10-03 06:27] LABS: Albumin 3.3 g/dL (3.2-5.2); Albumin/Globulin Ratio 1.6 (1-3); Calcium 8.5 mg/dL (8.6-10.3); Creatinine, Serum 0.86 mg/dL (0.67-1.17); Globulin 2.1 g/dL (2-4); Magnesium 1.6 mg/dL (1.9-2.7); Potassium 3.5 mmol/L (3.5-5.0); Total Bilirubin 1.1 mg/dL (0.2-1.0); Total Protein 5.4 g/dL (6.4-8.9); eGFR CKD-EPI 98.5 (>60)
[2022-10-03] MEDS ORDERED: Magnesium Sulfate 2 gm BAG 2 GM/50 ML BAG IVPB ONE (06:42)
[2022-10-03] MEDS ORDERED: Magnesium Sulfate IV 3 GM in NS 0.9% 100 ml BAG 100 ML IVPB ONE (07:50)
[2022-10-03] MEDS ORDERED: Potassium Chlor 20 meq TAB.ER PO ONE (07:50)
[2022-10-03] MEDS: Empagliflozin 25 MG TAB PO SCH (07:59)
[2022-10-03] MEDS ORDERED: Lisinopril/HCTZ 10/12.5 TA(NF) PO SCH (09:00)
[2022-10-03] MEDS: Albuterol HFA INHALER 8 gm MDI INH PRN (11:13)
[2022-10-03] MEDS: Tiotropium Brom/Olodaterol MDI INH SCH (12:51)
[2022-10-03] MEDS ORDERED: Dextrose 50% Syringe 50 ml 25 GM/50 ML SYRINGE IV PUSH PRN (15:42)
[2022-10-03] MEDS ORDERED: Insulin GLARGINE 100 un/ml 10 ml VIAL SUBCUT SCH (21:00)
[2022-10-03] MEDS: Enoxaparin 40 MG/0.4 ML SYR SUBCUT SCH (21:17)
[2022-10-04 05:15] LABS: ABS Eosinophils 0.2 10^3/ul (0-0.6); ABS Lymphocytes 1.2 10^3/ul (1.0-4.8); ABS Monocytes 0.5 10^3/ul (0-0.8); ABS Neutrophils 6.2 10^3/ul (1.5-7.7); Eosinophil % 2.2 %; Hematocrit 41 % (42-52); Hemoglobin 13.7 g/dL (14.0-18.0); Lymphocyte % 14.7 %; Mean Corpuscular HGB Conc 33 g/dL (31-36); Mean Corpuscular Hemoglobin 29 pg (27-31); Mean Corpuscular Volume 88 fL (80-94); Mean Platelet Volume 8.3 fL (7.4-10.4); Platelet Count 117 10^3/uL (150-450); Red Blood Count 4.67 10^6 /uL (4.18-5.48); Red Cell Distribution Width 15 % (10-15); White Blood Count 8.1 10^3/uL (3.5-10.8)
[2022-10-04 05:25] LABS: INR 1.41 (0.88-1.18)
[2022-10-04 05:51] LABS: ALT 15 U/L (7-52); Albumin 3.5 g/dL (3.2-5.2); Albumin/Globulin Ratio 1.4 (1-3); Alkaline Phosphatase 43 U/L (35-149); Blood Urea Nitrogen 21 mg/dL (6-24); CO2 Carbon Dioxide 25 mmol/L (22-32); Calcium 8.8 mg/dL (8.6-10.3); Chloride 101 mmol/L (101-111); Creatinine, Serum 0.98 mg/dL (0.67-1.17); Globulin 2.5 g/dL (2-4); Glucose 161 mg/dL (70-100); Sodium 134 mmol/L (135-145); eGFR CKD-EPI 87.7 (>60)
[2022-10-04 06:04] LABS: Anion Gap 8 mmol/L (2-11)
[2022-10-04] MEDS: Tiotropium Brom/Olodaterol MDI INH SCH (07:40)
[2022-10-04] MEDS: Empagliflozin 25 MG TAB PO SCH (08:45)
[2022-10-04 09:29] VITALS: BP 119/66
== END 2022-10-04 12:00 | disposition home or self-care (01) | DRG 439 ==
LOC: ED 19:56 → EDHOLD 10-02 00:02 → ICU 10-02 02:12
PROVIDERS: ADMIT Internal Medicine Critical Care Medicine; ATTEND Internal Medicine Critical Care Medicine